=== PATIENT | male | born 1970 | race Hispanic/Latino ===

== ENCOUNTER 2019-07-23 15:28 | Emergency (ER) | payer BC, OTHER ==
[2019-07-23] MEDS ORDERED: NA CHLORIDE 0.9% 1,000 ML ONE (16:16)
[2019-07-23 16:41] LABS: Albumin 3.6 g/dL (3.4-5.0); Bilirubin Direct 0.5 mg/dL (0-0.2); Bilirubin Total 1.6 mg/dL (0.2-1.0); Potassium 4.1 mmol/L (3.5-5.1); Protein, Total 7.2 g/dL (6.4-8.2)
[2019-07-23 16:49] LABS: Absolute Lymphocytes (CBC) 1.7 K/uL (0.7-4.9); Basophils % 0.7 % (0-1.3); Hematocrit 42.1 % (39.6-49.0); Lymphocytes % 22.8 % (15.3-44.8); MPV 9.2 fL (7.6-11.3); RBC Red Blood Cell Count 4.44 M/uL (4.33-5.43)
--- NOTE | 2019-07-23 18:03 | RAD REPORT ---
EXAM DESCRIPTION: CT - Abdomen Pelvis W Contrast - 07/23/2019 5:42 pm CLINICAL HISTORY: Abdominal pain COMPARISON: none. TECHNIQUE: Computed axial tomography of the abdomen pelvis was obtained. 100 cc Isovue-300 was admin istered intravenously. Oral contrast was not requested which limits evaluation of bowel. All CT scans are performed using dose optimization technique as appropriate and may include automated exposure control or mA/KV adjustment according to patient size. FINDINGS: Fatty liver The spleen, pancreas, adrenals and right kidney unremarkable. 4.2 centimeter left renal cyst There is no evidence of diverticulitis. Normal appendix Spondylolysis L5. Small umbilical hernia Small bilateral inguinal hernias IMPRESSION: No acute abnormality is displayed.
--- NOTE | 2019-07-23 18:22 | EDPHYS ---
Physician Documentation [facility] Name: Nahid Espinoza Age: 48 yrs Sex: Male : 1970 Arrival Date: 07/23/2019 Time: 15:32 Bed 20 Private MD: ED Physician Justin Luevano HPI: 07/23 16:02 This 48 yrs old Male presents to ER via Wheelchair with complaints of Back kb Pain, Urinary Problem. 16:02 The patient has experienced a previous episode. The patient has not recently seen a kb physician. 16:02 The patient complains of pain in the left flank. The pain does not radiate. Onset: The kb symptoms/episode began/occurred 2 day(s) ago. Modifying factors: The symptoms are alleviated by nothing. the symptoms are aggravated by nothing. Associated signs and symptoms: Pertinent positives: nausea. Severity of pain: At its worst the pain was moderate in the emergency department the pain is unchanged. Pt reports left flank pain for 2 days, blood in stool for "a while, over a week," and small frequent bowel movements. States he has had this once before 3.5 years ago and his kidneys had shut down and needed to be jumpstarted. States he was getting more anxious about it at home so he decided to come in to get it checked out. . Historical: - Allergies: 16:11 PENICILLINS; tw2 - PMHx: 15:45 High Cholesterol; Hypertension; sg - PSHx: 15:45 Hernia repair; sg - Immunization history:: Adult Immunizations unknown. - Social history:: Smoking status: Patient/guardian denies using tobacco. - Ebola Screening: : Patient negative for fever greater than or equal to 101.5 degrees Fahrenheit, and additional compatible Ebola Virus Disease symptoms Patient denies exposure to infectious person Patient denies travel to an Ebola-affected area in the 21 days before illness onset No symptoms or risks identified at this time. ROS: 16:01 Constitutional: Negative for fever, chills, and weight loss, ENT: Negative for injury, kb pain, and discharge, Neck: Negative for injury, pain, and swelling, Cardiovascular: Negative for chest pain, palpitations, and edema, Respiratory: Negative for shortness of breath, cough, wheezing, and pleuritic chest pain, MS/Extremity: Negative for injury and deformity, Skin: Negative for injury, rash, and discoloration, Neuro: Negative for headache, weakness, numbness, tingling, and seizure. 16:01 Abdomen/GI: Positive for rectal bleeding. 16:01 Back: Positive for flank pain. Exam: 16:01 Constitutional: This is a well developed, well nourished patient who is awake, alert, kb and in no acute distress. Head/Face: Normocephalic, atraumatic. ENT: Nares patent. No nasal discharge, no septal abnormalities noted. Tympanic membranes are normal and external auditory canals are clear. Oropharynx with no redness, swelling, or masses, exudates, or evidence of obstruction, uvula midline. Mucous membranes moist. Neck: Trachea midline, no thyromegaly or masses palpated, and no cervical lymphadenopathy. Supple, full range of motion without nuchal rigidity, or vertebral point tenderness. No Meningismus. Chest/axilla: Normal chest wall appearance and motion. Nontender with no deformity. No lesions are appreciated. Cardiovascular: Regular rate and rhythm with a normal S1 and S2. No gallops, murmurs, or rubs. Normal PMI, no JVD. No pulse deficits. Respiratory: Lungs have equal breath sounds bilaterally, clear to auscultation and percussion. No rales, rhonchi or wheezes noted. No increased work of breathing, no retractions or nasal flaring. Abdomen/GI: Soft, non-tender, with normal bowel sounds. No distension or tympany. No guarding or rebound. No evidence of tenderness throughout. Skin: Warm, dry with normal turgor. Normal color with no rashes, no lesions, and no evidence of cellulitis. MS/ Extremity: Pulses equal, no cyanosis. Neurovascular intact. Full, normal range of motion. Neuro: Awake and alert, GCS 15, oriented to person, place, time, and situation. Cranial nerves II-XII grossly intact. Motor strength 5/5 in all extremities. Sensory grossly intact. Cerebellar exam normal. Normal gait. 16:01 Back: CVA tenderness, that is moderate, is noted on the left. Vital Signs: 15:44 BP 130 / 95; Pulse 94; Resp 17; Temp 97.7(O); Pulse Ox 98% on R/A; mh5 16:10 Weight 131.54 kg (R); Height 5 ft. 11 in. (180.34 cm); Pain 4/10; tw2 16:54 BP 117 / 74; Pulse 92; Resp 17; Pulse Ox 99% on R/A; tw2 18:07 BP 101 / 70; Pulse 92; Resp 17; Pulse Ox 100% on R/A; tw2 18:34 BP 118 / 84; Pulse 87; Resp 17; Pulse Ox 99% on R/A; tw2 16:10 Body Mass Index 40.45 (131.54 kg, 180.34 cm) tw2 MDM: 15:39 Patient medically screened. kb 16:01 Data reviewed: vital signs, nurses notes. Data interpreted: Pulse oximetry: on room air kb is 98 %. Interpretation: normal. 18:19 Counseling: I had a detailed discussion with the patient and/or guardian regarding: the kb historical points, exam findings, and any diagnostic results supporting the discharge/admit diagnosis, lab results, radiology results, the need for outpatient follow up, a family practitioner, to return to the emergency department if symptoms worsen or persist or if there are any questions or concerns that arise at home. 07/23 15:48 Order name: Basic Metabolic Panel; Complete Time: 16:45 kb 07/23 15:48 Order name: CBC with Diff; Complete Time: 16:53 kb 07/23 15:48 Order name: Hepatic Function; Complete Time: 16:45 kb 07/23 15:48 Order name: Lipase; Complete Time: 16:45 kb 07/23 16:46 Order name: CT Abd/Pelvis - IV Contrast Only; Complete Time: 18:08 kb 07/23 15:48 Order name: IV Saline Lock; Complete Time: 16:17 kb 07/23 15:48 Order name: Labs collected and sent; Complete Time: 16:17 kb Administered Medications: 16:17 Drug: NS 0.9% 1000 ml Route: IV; Rate: 1000 ml; Site: left antecubital; tw2 18:35 Follow up: Response: No adverse reaction; IV Status: Completed infusion; IV Intake: tw2 1000ml Disposition: 07/23/19 18:20 Discharged to Home. Impression: Flank Pain, Abnormal results of liver function studies. - Condition is Stable. - Discharge Instructions: Alcoholic Liver Disease, [id number], Flank Pain, [id number]. - Medication Reconciliation Form, Thank You Letter, Antibiotic Education, Prescription Opioid Use form. - Follow up: Emergency Department; When: As needed; Reason: Worsening of condition. Follow up: Private Physician; When: 2 - 3 days; Reason: Recheck today's complaints, Continuance of care, Re-evaluation by your physician. Addendum: 07/30/2019 07:25 Co-signature as Attending Physician, Justin Luevano MD I agree with the assessment and c galdamez plan of care. Signatures: Dispatcher [employer] EDEva Gresham, DYLON-C [employer]-David Wolf, RN RN Justin Walton MD MD cha Wise, Tara RN RN tw2 Corrections: (The following items were deleted from the chart) 07/23 16:17 15:45 Allergies: No Known Allergies; tw2 18:20 18:20 07/23/2019 18:20 Discharged to Home. Impression: Flank Pain. Condition is Stable. kb Forms are Medication Reconciliation Form, Thank You Letter, Antibiotic Education, Prescription Opioid Use. Follow up: Emergency Department; When: As needed; Reason: Worsening of condition. Follow up: Private Physician; When: 2 - 3 days; Reason: Recheck today's complaints, Continuance of care, Re-evaluation by your physician. kb 18:35 18:20 07/23/2019 18:20 Discharged to Home. Impression: Flank Pain; Abnormal results of tw2 liver function studies. Condition is Stable. Discharge Instructions: Flank Pain, Mioa-pa-Qxfy. Forms are Medication Reconciliation Form, Thank You Letter, Antibiotic Education, Prescription Opioid Use. Follow up: Emergency Department; When: As needed; Reason: Worsening of condition. Follow up: Private Physician; When: 2 - 3 days; Reason: Recheck today's complaints, Continuance of care, Re-evaluation by your physician. kb
--- NOTE | 2019-07-23 18:22 | ER ---
Nurse's Notes [facility] Name: Nahid Espinoza Age: 48 yrs Sex: Male : 1970 Arrival Date: 07/23/2019 Time: 15:32 Bed 20 Private MD: Diagnosis: Flank Pain;Abnormal results of liver function studies Presentation: 07/23 15:43 Presenting complaint: Patient states: Flank pain that began earlier this week, reports sg having blood in stool as well, denies N/V/D/Fever at this time. Transition of care: patient was not received from another setting of care. Onset of symptoms was July 23, 2019. Risk Assessment: Do you want to hurt yourself or someone else? Patient reports no desire to harm self or others. Initial Sepsis Screen: Does the patient meet any 2 criteria? HR > 90 bpm. Does the patient have a suspected source of infection? Yes: Dysuria/Frequency/Urgency/UTI. Care prior to arrival: None. 15:43 Method Of Arrival: Wheelchair 15:43 Acuity: KATIE 3 sg Triage Assessment: 15:47 General: Appears uncomfortable, obese, well groomed, Behavior is calm, cooperative, tw2 appropriate for age. Musculoskeletal: Range of motion: intact in all extremities. Historical: - Allergies: 16:11 PENICILLINS; tw2 - PMHx: 15:45 High Cholesterol; Hypertension; sg - PSHx: 15:45 Hernia repair; sg - Immunization history:: Adult Immunizations unknown. - Social history:: Smoking status: Patient/guardian denies using tobacco. - Ebola Screening: : Patient negative for fever greater than or equal to 101.5 degrees Fahrenheit, and additional compatible Ebola Virus Disease symptoms Patient denies exposure to infectious person Patient denies travel to an Ebola-affected area in the 21 days before illness onset No symptoms or risks identified at this time. Screenin:46 Abuse screen: Denies threats or abuse. Nutritional screening: No deficits noted. tw2 Tuberculosis screening: No symptoms or risk factors identified. Fall Risk None identified. Assessment: 15:45 Pain: Complains of pain in left low back and right low back. Neuro: Level of tw2 Consciousness is awake, alert, obeys commands, Oriented to person, place, time, situation. 15:45 Reassessment: provider at bedside at this time. tw2 15:45 General: Appears in no apparent distress. obese, well groomed, Behavior is calm, tw2 cooperative, appropriate for age. Cardiovascular: Heart tones S1 S2 Patient's skin is warm and dry. Respiratory: Airway is patent Respiratory effort is even, unlabored, Respiratory pattern is regular, symmetrical, Breath sounds are clear bilaterally. GI: Abdomen is round non-distended, obese, Bowel sounds present X 4 quads. : No signs and/or symptoms were reported regarding the genitourinary system. EENT: No signs and/or symptoms were reported regarding the EENT system. Derm: No signs and/or symptoms reported regarding the dermatologic system. Musculoskeletal: Range of motion: intact in all extremities. 16:54 Reassessment: Patient appears in no apparent distress at this time. No changes from tw2 previously documented assessment. Patient and/or family updated on plan of care and expected duration. Pain level reassessed. Patient is alert, oriented x 3, equal unlabored respirations, skin warm/dry/pink. 18:34 Reassessment: Patient appears in no apparent distress at this time. No changes from tw2 previously documented assessment. Patient and/or family updated on plan of care and expected duration. Pain level reassessed. Patient is alert, oriented x 3, equal unlabored respirations, skin warm/dry/pink. Vital Signs: 15:44 BP 130 / 95; Pulse 94; Resp 17; Temp 97.7(O); Pulse Ox 98% on R/A; mh5 16:10 Weight 131.54 kg (R); Height 5 ft. 11 in. (180.34 cm); Pain 4/10; tw2 16:54 BP 117 / 74; Pulse 92; Resp 17; Pulse Ox 99% on R/A; tw2 18:07 BP 101 / 70; Pulse 92; Resp 17; Pulse Ox 100% on R/A; tw2 18:34 BP 118 / 84; Pulse 87; Resp 17; Pulse Ox 99% on R/A; tw2 16:10 Body Mass Index 40.45 (131.54 kg, 180.34 cm) tw2 ED Course: 15:32 Patient arrived in ED. mr 15:39 Eva Matthews FNP-C is [facility]. kb 15:39 Justin Luevano MD is Attending Physician. kb 15:40 Bed in low position. Call light in reach. Pulse ox on. NIBP on. tw2 15:43 Chloe Rizvi, RN is Primary Nurse. tw2 15:44 Triage completed. 15:45 Arm band placed on. tw2 16:12 Served as a agile project manager during rectal exam. Initial lab(s) drawn, by me, sent to lab. 5 Inserted saline lock: 22 gauge in left antecubital area, using aseptic technique. 16:13 Side rails up X 1. 5 17:43 CT Abd/Pelvis - IV Contrast Only In Process Unspecified. EDMS 18:35 IV discontinued, intact, bleeding controlled, No redness/swelling at site. Pressure tw2 dressing applied. Administered Medications: 16:17 Drug: NS 0.9% 1000 ml Route: IV; Rate: 1000 ml; Site: left antecubital; tw2 18:35 Follow up: Response: No adverse reaction; IV Status: Completed infusion; IV Intake: tw2 1000ml Intake: 18:35 IV: 1000ml; Total: 1000ml. tw2 Outcome: 18:20 Discharge ordered by MD. kb 18:34 Discharged to home ambulatory, with significant other. tw2 18:34 Condition: stable 18:34 Discharge instructions given to patient, significant other, Instructed on discharge instructions, follow up and referral plans. Demonstrated understanding of instructions, follow-up care. 18:35 Patient left the ED. tw2 Signatures: Dispatcher [employer] EDMS Eva Matthews, TAIL RIPPERDeannaC TAIL RIPPER-David Wolf RN RN Jayashree Manzo mr Chloe Rizvi, GEMINI RN [facility] Alise White [facility] Corrections: (The following items were deleted from the chart) 15:50 15:44 BP 130 / 95; Pulse 94bpm; Resp 17bpm; Pulse Ox 98% RA; tw2 [facility] 16:17 15:45 Allergies: No Known Allergies; tw2 19:18 15:45 Reassessment: provider at bedside at this time tw2 2
[2019-07-23 18:41] VITALS: TEMP 97.7
[2019-07-23 18:46] VITALS: BP 118/84; O2SAT 99
== END 2019-07-23 18:35 | disposition home or self-care (01) ==
LOC: ER 15:28
DX: R94.5 Abnormal results of liver function studies (principal); I10 Essential (primary) hypertension; Z88.0 Allergy status to penicillin
CPT/HCPCS: 96361; 85025; 80048; 36415; 80076; 83690; 74177; 96360; 99284; Q9967; J7030

== ENCOUNTER 2019-10-12 06:08 | Day surgery (SDC) | payer BC ==
--- OUTSIDE RECORDS SUMMARY | 2019-10-12 06:15 | XMS REPORT ---
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 disorder without prior episode Assessment Insomnia, unspecified type G47.00 Active Problem Generalized anxiety disorder F41.1 Active Problem Mixed hyperlipidemia E78.2 Active Problem Alcohol abuse F10.10 Active Problem Body mass index (BMI) 40.0-44.9, Z68.41 Active adult Problem Insomnia, unspecified type G47.00 Active Problem Panic disorder [episodic paroxysmal F41.0 Active anxiety] Problem Morbid (severe) obesity due to E66.01 Active excess calories Medications Medication Code Code Instructions Start End Status Dosage System Date Date Zolpidem [facility] 51670837726 10 MG Orally Active 1 tablet Tartrate Once a day PRN at bedtime as needed Results No Known Results Summary Purpose eClinicalWorks Submission
--- OUTSIDE RECORDS SUMMARY | 2019-10-12 06:15 | XMS REPORT ---
:1970 Author Organization eClinicalWorks Care Team Providers Name Role Phone Luca Leonardo Provider Role Unavailable Allergies, Adverse Reactions, Alerts Substance Reaction Event Type penicillin Info Not Available Drug Allergy Problems Problem Type Condition Code Onset Dates Condition Status Problem HTN, goal below 140/90 I10 Active Problem Current moderate episode of major F32.1 Active depressive disorder without prior episode Problem Generalized anxiety disorder F41.1 Active Assessment Body mass index (BMI) 40.0-44.9, Z68.41 Active adult Problem Mixed hyperlipidemia E78.2 Active Problem Alcohol abuse F10.10 Active Problem Body mass index (BMI) 40.0-44.9, Z68.41 Active adult Problem Insomnia, unspecified type G47.00 Active Problem Panic disorder [episodic paroxysmal F41.0 Active anxiety] Problem Morbid (severe) obesity due to E66.01 Active excess calories Assessment Alcohol abuse counseling and Z71.41 Active surveillance Assessment History of recent change in Z78.9 Active lifestyle Assessment Morbid (severe) obesity due to E66.01 Active excess calories Assessment Alcohol abuse F10.10 Active Assessment Insomnia, unspecified type G47.00 Active Assessment Generalized anxiety disorder F41.1 Active Assessment Mixed hyperlipidemia E78.2 Active Assessment Panic disorder [episodic paroxysmal F41.0 Active anxiety] Assessment HTN, goal below 140/90 I10 Active Assessment Current moderate episode of major F32.1 Active depressive disorder without prior episode Medications Medication Code Code Instructions Start End Status Dosage System Date Date Zoloft ND 95589473315 50 MG Orally Inactive Take 1/2 Once a day tab QD x 1 week then take 1 tab QD Fenofibrate ND 39970082402 54 MG Orally Active 1 tablet Once a day with food Lisinopril ND 45945269118 40 MG Orally Active 1 tablet Once a day Zolpidem ND 04462636907 10 MG Orally Active 1 tablet Tartrate PRN at bedtime as needed Atorvastatin ND 87891603655 10 MG Orally Active 1 tablet Calcium Once a day Alprazolam ND 33371457678 0.5 MG Orally Active 1 tablet PRN Carvedilol [facility] 67711968669 25 MG Orally Active 1 tablet Twice a day Aspir-Low [facility] 71110735815 81 MG Orally Active 1 tablet Once a day Mens [facility] 95039344198 - Orally Active as Multivitamin directed Celexa [facility] 39809381965 20 MG Orally Jul 09, Active 0.5 tablet Once a day 2018 daily x 1 week then 1 tablet daily Results No Known Results Summary Purpose eClinicalWorks Submission
--- OUTSIDE RECORDS SUMMARY | 2019-10-12 06:15 | XMS REPORT ---
:1970 Author Organization e[employer]Works Care Team Providers Name Role Phone Leonardo Segovia Provider Role Unavailable Allergies, Adverse Reactions, Alerts Substance Reaction Event Type penicillin Info Not Available Drug Allergy Problems Problem Type Condition Code Onset Dates Condition Status Assessment Obstructive sleep apnea (adult) G47.33 Active (pediatric) Assessment Dependence on other enabling Z99.89 Active machines and devices Assessment Hyperkalemia E87.5 Active Assessment Body mass index (BMI) 40.0-44.9, Z68.41 Active adult Assessment Morbid (severe) obesity due to E66.01 Active excess calories Assessment Family history of colon cancer in Z80.0 Active father Problem Generalized anxiety disorder F41.1 Active Assessment Polyp of colon, unspecified part of K63.5 Active colon, unspecified type Problem Alcohol abuse F10.10 Active Problem Morbid (severe) obesity due to E66.01 Active excess calories Problem Body mass index (BMI) 40.0-44.9, Z68.41 Active adult Problem Dependence on other enabling Z99.89 Active machines and devices Problem Insomnia, unspecified type G47.00 Active Assessment Prediabetes R73.03 Active Assessment Elevated LFTs R94.5 Active Problem Obstructive sleep apnea (adult) G47.33 Active (pediatric) Assessment Anemia, unspecified type D64.9 Active Problem Mixed hyperlipidemia E78.2 Active Problem Panic disorder [episodic paroxysmal F41.0 Active anxiety] Problem HTN, goal below 140/90 I10 Active Problem Current moderate episode of major F32.1 Active depressive disorder without prior episode Assessment Mixed hyperlipidemia E78.2 Active Assessment HTN, goal below 140/90 I10 Active Assessment Alcohol abuse F10.10 Active Assessment History of recent change in Z78.9 Active lifestyle Assessment Panic disorder [episodic paroxysmal F41.0 Active anxiety] Assessment Current moderate episode of major F32.1 Active depressive disorder without prior episode Assessment Insomnia, unspecified type G47.00 Active Assessment Generalized anxiety disorder F41.1 Active Medications Medication Code Code Instructions Start End Status Dosage System Date Date [facility] [id number] - Orally Active as directed Multivitamin Carvedilol [facility] 31056011945 25 MG Orally Active 1 tablet Twice a day Atorvastatin [facility] 28850710359 10 MG Orally Active 1 tablet Calcium Once a day Alprazolam [facility] 36604859417 0.5 MG Orally Active 1 tablet PRN Zolpidem [facility] 52218541028 10 MG Orally Active 1 tablet at Tartrate PRN bedtime as needed Lisinopril [facility] 04364154598 40 MG Orally Active 1 tablet Once a day Aspir-Low [facility] 91771422164 81 MG Orally Active 1 tablet Once a day Fenofibrate [facility] 26353659056 54 MG Orally Active 1 tablet Once a day with food Celexa [facility] 36209113900 40 MG Orally Active 1 tablet Once a day Results No Known Results Summary Purpose eClinicalWorks Submission
--- OUTSIDE RECORDS SUMMARY | 2019-10-12 06:15 | XMS REPORT ---
:1970 Author Organization eClinicalWorks Care Team Providers Name Role Phone Luca [facility] Provider Role Unavailable Allergies No Known Allergies Problems Problem Type Condition Code Onset Dates Condition Status Problem HTN, goal below 140/90 I10 Active Problem Current moderate episode of major F32.1 Active depressive disorder without prior episode Assessment HTN, goal below 140/90 I10 Active Assessment Mixed hyperlipidemia E78.2 Active Problem Generalized anxiety disorder F41.1 Active Problem Mixed hyperlipidemia E78.2 Active Problem Alcohol abuse F10.10 Active Problem Body mass index (BMI) 40.0-44.9, Z68.41 Active adult Problem Insomnia, unspecified type G47.00 Active Problem Panic disorder [episodic paroxysmal F41.0 Active anxiety] Problem Morbid (severe) obesity due to E66.01 Active excess calories Medications Medication Code Code Instructions Start End Status Dosage System Date Date Atorvastatin [facility] 11983393836 10 MG Orally Active 1 tablet Calcium Once a day Fenofibrate [facility] 55720880280 54 MG Orally Active 1 tablet Once a day with food Lisinopril [facility] 60526360345 40 MG Orally Active 1 tablet Once a day Results No Known Results Summary Purpose eClinicalWorks Submission
--- OUTSIDE RECORDS SUMMARY | 2019-10-12 06:15 | XMS REPORT ---
:1970 Author Organization eClinicalWorks Care Team Providers Name Role Phone Luca Leonardo Provider Role Unavailable Allergies, Adverse Reactions, Alerts Substance Reaction Event Type penicillin Info Not Available Drug Allergy Problems Problem Type Condition Code Onset Dates Condition Status Assessment Family history of colon cancer in Z80.0 Active father Assessment Current moderate episode of major F32.1 Active depressive disorder without prior episode Assessment Need for Tdap vaccination Z23 Active Assessment Encounter for wellness examination Z00.00 Active in adult Assessment Polyp of colon, unspecified part of K63.5 Active colon, unspecified type Problem HTN, goal below 140/90 I10 Active Problem Current moderate episode of major F32.1 Active depressive disorder without prior episode Problem Generalized anxiety disorder F41.1 Active Problem Mixed hyperlipidemia E78.2 Active Assessment Morbid (severe) obesity due to E66.01 Active excess calories Assessment Body mass index (BMI) 40.0-44.9, Z68.41 Active adult Problem Alcohol abuse F10.10 Active Assessment Screen for colon cancer Z12.11 Active Problem Body mass index (BMI) 40.0-44.9, Z68.41 Active adult Problem Insomnia, unspecified type G47.00 Active Problem Panic disorder [episodic paroxysmal F41.0 Active anxiety] Problem Morbid (severe) obesity due to E66.01 Active excess calories Assessment History of recent change in Z78.9 Active lifestyle Assessment Mixed hyperlipidemia E78.2 Active Assessment Alcohol abuse F10.10 Active Assessment Alcohol abuse counseling and Z71.41 Active surveillance Assessment Generalized anxiety disorder F41.1 Active Assessment Panic disorder [episodic paroxysmal F41.0 Active anxiety] Assessment HTN, goal below 140/90 I10 Active Assessment Insomnia, unspecified type G47.00 Active Medications Medication Code Code Instructions Start End Status Dosage System Date Date Aspir-Low [facility] 01351620246 81 MG Orally Active 1 tablet Once a day Carvedilol [facility] 72743234051 25 MG Orally Active 1 tablet Twice a day Celexa [facility] 34635860878 20 MG Orally Active 1 tablet Once a day Mens [facility] 88937207497 - Orally Active as directed Multivitamin Alprazolam [facility] 11606059604 0.5 MG Orally Active 1 tablet PRN Lisinopril [facility] 22398541857 40 MG Orally Active 1 tablet Once a day Zolpidem [facility] 02888733379 10 MG Orally Active 1 tablet at Tartrate PRN bedtime as needed Atorvastatin [facility] 91577696151 10 MG Orally Active 1 tablet Calcium Once a day Fenofibrate [facility] 59048988901 54 MG Orally Active 1 tablet Once a day with food Results No Known Results Immunizations Vaccine Administration Date TDAP > 7 Years-Adacel Aug 06, 2019 Summary Purpose eClinicalWorks Submission
--- OUTSIDE RECORDS SUMMARY | 2019-10-12 06:15 | XMS REPORT ---
[...] End Status Dosage System Date Date Aspir-Low ND 74515388002 81 MG Orally Active 1 tablet Once a day Atorvastatin ND 47114270054 10 MG Orally Active 1 tablet Calcium Once a day Zoloft ND 24141859933 50 MG Orally Jul 06, Active Take 1/2 Once a day 2019 tab QD x 1 week then take 1 tab QD Mens ND 96306328924 - Orally Active as directed Multivitamin Zolpidem ND 64976232950 10 MG Orally Active 1 tablet at Tartrate PRN bedtime as needed Fenofibrate ND 00142847429 54 MG Orally Active 1 tablet Once a day with food Alprazolam [facility] 42654279335 0.5 MG Orally Active 1 tablet PRN Lisinopril [facility] 10620339974 40 MG Orally Active 1 tablet Once a day Carvedilol [facility] 55661706197 25 MG Orally Active 1 tablet Twice a day Results No Known Results Summary Purpose eClinicalWorks Submission
--- OUTSIDE RECORDS SUMMARY | 2019-10-12 06:15 | XMS REPORT ---
:1970 Author Organization eClinicalWorks Care Team Providers Name Role Phone Luca Leonardo Provider Role Unavailable Allergies No Known Allergies Problems Problem Type Condition Code Onset Dates Condition Status Problem HTN, goal below 140/90 I10 Active Problem Current moderate episode of major F32.1 Active depressive disorder without prior episode Assessment Current moderate episode of major F32.1 [...] Medications Medication Code Code Instructions Start End Date Status Dosage System Date Celexa [facility] 25537190555 20 MG Orally Jul 09, Active 0.5 tablet Once a day 2018 daily x 1 week then 1 tablet daily Zoloft [facility] 96080955994 50 MG Orally Jul 06, Jul 09, Inactive Take 1/2 Once a day 2018 2018 tab QD x 1 week then take 1 tab QD Results No Known Results Summary Purpose eClinicalWorks Submission
--- OUTSIDE RECORDS SUMMARY | 2019-10-12 06:15 | XMS REPORT ---
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 Active machines and devices Problem Insomnia, unspecified type G47.00 Active Problem Obstructive sleep apnea (adult) G47.33 Active (pediatric) Problem Mixed hyperlipidemia E78.2 Active Problem Panic disorder [episodic paroxysmal F41.0 Active anxiety] Problem HTN, goal below 140/90 I10 Active Problem Current moderate episode of major F32.1 Active depressive disorder without prior episode Medications Medication Code Code Instructions Start End Status Dosage System Date Date Zolpidem [facility] 23401937997 10 MG Orally Inactive 1 tablet Tartrate PRN at bedtime as needed Trazodone HCl ND 90116649195 100 MG Orally Sep 06, Active 1 tablet Once a day 2019 at bedtime Results No Known Results Summary Purpose eClinicalWorks Submission
[2019-10-12] MEDS ORDERED: Ringers Lactate 1,000 ML IV ONE (06:53)
[2019-10-12] MEDS ORDERED: LIDOCAINE 1% MPF 5 ML VIAL ONE (07:37)
[2019-10-12] MEDS ORDERED: propofoL 200 MG/20 ML VIAL IV ONE (07:37)
--- NOTE | 2019-10-12 08:03 | ENDO RPT ---
[address], [address] COLONOSCOPY PROCEDURE REPORT EXAM DATE: 10/12/2019 PATIENT NAME: Nahid Espinoza MR #: [id number] BIRTHDATE: 1970 ATTENDING: Sonido White MD STATUS: outpatient MARKETING PLANNER: Krishna Cleary CST and Whit Ferrer RN INDICATIONS: The patient is a 49 yr old Male here for a colonoscopy due to history of polyps and hx GI bleed, strong family hx colon cancer PROCEDURE PERFORMED: Colonoscopy MEDICATIONS: Per Anesthesia. ESTIMATED BLOOD LOSS: None CONSENT: The patient understands the risks and benefits of the procedure and understands that these risks include, but are not limited to: sedation, allergic reaction, infection, perforation and/or bleeding. Alternative means of evaluation and treatment include, among others: physical exam, x-rays, and/or surgical intervention. The patient elects to proceed with this endoscopic procedure. DESCRIPTION OF PROCEDURE: During intra-op preparation period all mechanical medical equipment was checked for proper function. Hand hygiene and appropriate measures for infection prevention was taken. Procedure, possible complications, alternatives including, but not limited to possibility of bleeding, perforation, tear, infection, sepsis, need for surgery, need for blood transfusion, were explained to the patient. After the risks, benefits and alternatives of the procedure were thoroughly explained, Informed consent was verified, confirmed and timeout was successfully executed by the treatment team. The patient was placed in the left lateral position. A digital rectal exam was performed and revealed external hemorrhoids. After appropriate level of anesthesia, the scope was passed. The EC-[id number] ([id number]) endoscope was introduced through the anus and advanced to the cecum, which was identified by transillumination from the light source, the appendix, and the ileocecal valve. The quality of the prep was good. The instrument was then slowly withdrawn as the colon was fully examined. Scope withdrawal time was . COLON FINDINGS: Diverticula was found in the descending colon. Retroflexed views revealed no abnormalities and Retroflexed views revealed medium hemorrhoids. The scope was then completely withdrawn from the patient and the procedure terminated. ADVERSE EVENTS: There were no complications. IMPRESSIONS: 1. Diverticula in the descending colon 2. External hemorrhoids 3. Internal hemorrhoids RECOMMENDATIONS: 1. follow-up: office 1 week(s) 2. hemorrhoidal hygiene 3. no seeds in diet RECALL: Return in 3 year(s) for Colonoscopy. Sonido White MD eSigned: Sonido White MD 10/12/2019 8:02 AM cc: Leonardo Segovia MD CPT CODES: ICD9 CODES: PATIENT NAME: Nahid Espinoza MR#: [id number]
[2019-10-12 08:42] VITALS: TEMP 96.5
[2019-10-12 08:43] VITALS: BP 100/62; O2SAT 100
== END 2019-10-12 08:35 | disposition home or self-care (01) ==
LOC: OR 06:08
PROVIDERS: ATTEND Surgery
PROC: 0DJD8ZZ Inspection of Lower Intestinal Tract, Via Natural or Artificial Opening Endoscopic (ICD-10-PCS; principal; 2019-10-12 07:30)
DX: K57.30 Diverticulosis of large intestine without perforation or abscess without bleeding (principal); K64.8 Other hemorrhoids; K64.4 Residual hemorrhoidal skin tags; I10 Essential (primary) hypertension; E78.00 Pure hypercholesterolemia, unspecified; F41.9 Anxiety disorder, unspecified; F32.9 Major depressive disorder, single episode, unspecified; Z86.010 Personal history of colon polyps; Z88.0 Allergy status to penicillin; Z80.0 Family history of malignant neoplasm of digestive organs; Z80.3 Family history of malignant neoplasm of breast
CPT/HCPCS: 45378; J2704; J7120

== ENCOUNTER 2019-10-30 14:08 | Emergency (ER) | payer BC ==
--- OUTSIDE RECORDS SUMMARY | 2019-10-30 14:10 | XMS REPORT ---
:1970 Author Organization eClinicalWorks Care Team Providers Name Role Phone Luca Leonardo Provider Role Unavailable Allergies, Adverse Reactions, Alerts Substance Reaction Event Type penicillin Info Not Available Drug Allergy Problems Problem Type Condition Code Onset Dates Condition Statu s Problem HTN, goal below 140/90 I10 Activ e Problem Current moderate episode of major F32.1 Active depressive disorder without prior episode Problem Generalized anxiety disorder F41.1 Active Assessment Body mass index (BMI) 40.0-44.9, Z68.41 Active adult Problem Mixed hyperlipidemia E78.2 Active Problem Alcohol abuse F10.10 Active Problem Body mass index (BMI) 40.0-44.9, Z68.41 Active adult Problem Insomnia, unspecified type G47.00 A ctive Problem Panic disorder [episodic paroxysmal F41.0 Active anxiety] Problem Morbid (severe) obesity due to E66.01 Active excess calories Assessment Alcohol abuse counseling and Z71.41 Active surveillance Assessment History of recent change in Z78.9 Active lifestyle Assessment Morbid (severe) obesity due to E66.01 Active excess calories Assessment Alcohol abuse F10.10 Active Assessment Insomnia, unspecified type G47.00 A ctive Assessment Generalized anxiety disorder F41.1 Active Assessment Mixed hyperlipidemia E78.2 Active Assessment Panic disorder [episodic paroxysmal F41.0 Active anxiety] Assessment HTN, goal below 140/90 I10 Activ e Assessment Current moderate episode of major F32.1 Active depressive disorder without prior episode Medications Medication Code Code Instructions Start End Status Dosage System Date Date Aspir-Low [facility] 14682087140 81 MG Orally Active 1 tab let Once a day Atorvastatin [facility] 32807633030 10 MG Orally Active 1 tablet Calcium Once a day Zoloft ND 51697150887 50 MG Orally Jul 06, Active Take 1/ 2 Once a day 2019 tab QD x 1 week then take 1 tab QD Mens [facility] 11233115040 - Orally Active as directed Multivitamin Zolpidem ND 86544609271 10 MG Orally Active 1 tabl et at Tartrate PRN bedtime as needed Fenofibrate [facility] 47994070307 54 MG Orally Active 1 t ablet Once a day with food Alprazolam [facility] 79701357309 0.5 MG Orally Active 1 t ablet PRN Lisinopril [facility] 16726956618 40 MG Orally Active 1 ta blet Once a day Carvedilol [facility] 55440127301 25 MG Orally Active 1 ta blet Twice a day Results No Known Results Summary Purpose eClinicalWorks Submission
--- OUTSIDE RECORDS SUMMARY | 2019-10-30 14:11 | XMS REPORT ---
:1970 Author Organization eClinicalWorks Care Team Providers Name Role Phone Luca Leonardo Provider Role Unavailable Allergies No Known Allergies Problems Problem Type Condition Code Onset Dates Condition Statu s Problem HTN, goal below 140/90 I10 Activ e Problem Current moderate episode of major F32.1 Active depressive disorder without prior episode Assessment HTN, goal below 140/90 I10 Activ e Assessment Mixed hyperlipidemia E78.2 Active Problem Generalized [...] End Status Dosage System Date Date Atorvastatin [facility] 60554023246 10 MG Orally Active 1 tablet Calcium Once a day Fenofibrate ND 64152852132 54 MG Orally Active 1 t ablet Once a day with food Lisinopril [facility] 94933900216 40 MG Orally Active 1 ta blet Once a day Results No Known Results Summary Purpose eClinicalWorks Submission
--- OUTSIDE RECORDS SUMMARY | 2019-10-30 14:11 | XMS REPORT ---
[...] End Date Status Dosage System Date Celexa [facility] 05826547016 20 MG Orally Jul 09, Active 0.5 tab let Once a day 2018 daily x 1 week then 1 tablet daily Zoloft [facility] 21286930814 50 MG Orally Jul 06, Jul 09, Inactive Take 1 /2 Once a day 2018 2018 tab QD x 1 week then take 1 tab QD Results No Known Results Summary Purpose eClinicalWorks Submission
--- OUTSIDE RECORDS SUMMARY | 2019-10-30 14:11 | XMS REPORT ---
[...] End Status Dosage System Date Date Zoloft [facility] 13942614237 50 MG Orally Inactive Take 1 /2 Once a day tab QD x 1 week then take 1 tab QD Fenofibrate ND 82359701721 54 MG Orally Active 1 t ablet Once a day with food Lisinopril ND 87842310310 40 MG Orally Active 1 ta blet Once a day Zolpidem ND 70916642765 10 MG Orally Active 1 tabl et Tartrate PRN at bedtime as needed Atorvastatin ND 72460599888 10 MG Orally Active 1 tablet Calcium Once a day Alprazolam [facility] 88016102128 0.5 MG Orally Active 1 t ablet PRN Carvedilol [facility] 11159022918 25 MG Orally Active 1 ta blet Twice a day Aspir-Low [facility] 51921994460 81 MG Orally Active 1 tab let Once a day Mens [facility] 01693345593 - Orally Active as Multivitamin directed Celexa [facility] 55688866742 20 MG Orally Jul 09, Active 0.5 tab let Once a day 2019 daily x 1 week then 1 tablet daily Results No Known Results Summary Purpose eClinicalWorks Submission
--- OUTSIDE RECORDS SUMMARY | 2019-10-30 14:12 | XMS REPORT ---
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 machines and devices Problem Insomnia, unspecified type G47.00 A ctive Problem Obstructive sleep apnea (adult) G47.33 Active (pediatric) Problem Mixed hyperlipidemia E78.2 Active Problem Panic disorder [episodic paroxysmal F41.0 Active anxiety] Problem HTN, goal below 140/90 I10 Activ e Problem Current moderate episode of major F32.1 Active depressive disorder without prior episode Medications Medication Code Code Instructions Start End Status Dosage System Date Date Zolpidem [facility] 81655742997 10 MG Orally Inactive 1 tab let Tartrate PRN at bedtime as needed Trazodone HCl ND 42552417993 100 MG Orally Sep 06, Active 1 tablet Once a day 2019 at bedtime Results No Known Results Summary Purpose eClinicalWorks Submission
--- OUTSIDE RECORDS SUMMARY | 2019-10-30 14:12 | XMS REPORT ---
:1970 Author Organization eClinicalWorks Care Team Providers Name Role Phone Leonardo Segovia Provider Role Unavailable Allergies, Adverse Reactions, Alerts Substance Reaction Event Type penicillin Info Not Available Drug Allergy Problems Problem Type Condition Code Onset Dates Condition Statu s Assessment Obstructive sleep apnea (adult) G47.33 Active [...] Problem Insomnia, unspecified type G47.00 A ctive Assessment Prediabetes R73.03 Active Assessment Elevated LFTs R94.5 Active Problem Obstructive sleep apnea (adult) G47.33 Active (pediatric) Assessment Anemia, unspecified type D64.9 Act tammy Problem Mixed hyperlipidemia E78.2 Active Problem Panic disorder [episodic paroxysmal F41.0 Active anxiety] Problem HTN, goal below 140/90 I10 Activ e Problem Current moderate episode of major F32.1 Active depressive disorder without prior episode Assessment Mixed hyperlipidemia E78.2 Active Assessment HTN, goal below 140/90 I10 Activ e Assessment Alcohol abuse F10.10 Active Assessment History of recent change in Z78.9 Active lifestyle Assessment Panic disorder [episodic paroxysmal F41.0 Active anxiety] Assessment Current moderate episode of major F32.1 Active depressive disorder without prior episode Assessment Insomnia, unspecified type G47.00 A ctive Assessment Generalized anxiety disorder F41.1 Active Medications Medication Code Code Instructions Start End Status Dosage System Date Date Mens [facility] 75157758976 - Orally Active as directed Multivitamin Carvedilol [facility] 69064426652 25 MG Orally Active 1 ta blet Twice a day Atorvastatin [facility] 18851879995 10 MG Orally Active 1 tablet Calcium Once a day Alprazolam [facility] 22903775949 0.5 MG Orally Active 1 t ablet PRN Zolpidem [facility] 41568817387 10 MG Orally Active 1 tabl et at Tartrate PRN bedtime as needed Lisinopril [facility] 18362503941 40 MG Orally Active 1 ta blet Once a day Aspir-Low [facility] 62684740319 81 MG Orally Active 1 tab let Once a day Fenofibrate [facility] 98139070635 54 MG Orally Active 1 t ablet Once a day with food Celexa [facility] 28131718328 40 MG Orally Active 1 table t Once a day Results No Known Results Summary Purpose eClinicalWorks Submission
--- OUTSIDE RECORDS SUMMARY | 2019-10-30 14:12 | XMS REPORT ---
:1970 Author Organization eClinicalWorks Care Team Providers Name Role Phone Luca [facility] Provider Role Unavailable Allergies No Known Allergies [...] End Status Dosage System Date Date Zolpidem [facility] 88257705089 10 MG Orally Active 1 tabl et Tartrate Once a day PRN at bedti me as needed Results No Known Results Summary Purpose eClinicalWorks Submission
--- OUTSIDE RECORDS SUMMARY | 2019-10-30 14:12 | XMS REPORT ---
:1970 Author Organization eClinicalWorks Care Team Providers Name Role Phone Luca Leonardo Provider Role Unavailable Allergies, Adverse Reactions, Alerts Substance Reaction Event Type penicillin Info Not Available Drug Allergy Problems Problem Type Condition Code Onset Dates Condition Statu s Assessment Family history of colon cancer in Z80.0 Active father Assessment Current moderate episode of major F32.1 Active depressive disorder without prior episode Assessment Need for Tdap vaccination Z23 Ac tive Assessment Encounter for wellness examination Z00.00 Active in adult Assessment Polyp of colon, unspecified part of K63.5 Active colon, unspecified type Problem HTN, goal below 140/90 I10 Activ e Problem Current moderate episode of major F32.1 Active depressive disorder without prior episode Problem Generalized anxiety disorder F41.1 Active Problem Mixed hyperlipidemia E78.2 Active Assessment Morbid (severe) obesity due to E66.01 Active excess calories Assessment Body mass index (BMI) 40.0-44.9, Z68.41 Active adult Problem Alcohol abuse F10.10 Active Assessment Screen for colon cancer Z12.11 Acti ve Problem Body mass index (BMI) 40.0-44.9, Z68.41 [...] goal below 140/90 I10 Activ e Assessment Insomnia, unspecified type G47.00 A ctive Medications Medication Code Code Instructions Start End Status Dosage System Date Date Aspir-Low [facility] 55799002181 81 MG Orally Active 1 tab let Once a day Carvedilol [facility] 84412618493 25 MG Orally Active 1 ta blet Twice a day Celexa [facility] 11862777925 20 MG Orally Active 1 table t Once a day Mens [facility] 62216486486 - Orally Active as directed Multivitamin Alprazolam [facility] 07255027593 0.5 MG Orally Active 1 t ablet PRN Lisinopril [facility] 39911413646 40 MG Orally Active 1 ta blet Once a day Zolpidem [facility] 67973476817 10 MG Orally Active 1 tabl et at Tartrate PRN bedtime as needed Atorvastatin [facility] 35403377793 10 MG Orally Active 1 tablet Calcium Once a day Fenofibrate [facility] 34728647307 54 MG Orally Active 1 t ablet Once a day with food Results No Known Results Immunizations Vaccine Administration Date TDAP > 7 Years-Adacel Aug 06, 2019 Summary Purpose eClinicalWorks Submission
[2019-10-30 15:15] LABS: Protime INR 1.15
--- NOTE | 2019-10-30 15:37 | RAD REPORT ---
EXAM DESCRIPTION: CT - Stone Protocol - 10/30/2019 3:07 pm CLINICAL HISTORY: Abdominal pain. COMPARISON: 06/2019 TECHNIQUE: Computed axial tomography of the abdomen pelvis was obtained without oral or IV contrast. Lack of IV and oral contrast limits evaluation of solid organs, bowel, and vessels. Coronal reformat dania images were obtained and reviewed. All CT scans are performed using dose optimization technique as appropriate and may include automated exposure control or mA/KV adjustment according to patient size. FINDINGS: A renal calculus is not seen. An ureteral calculus is not noted. A bladder calculus is not present. The gallbladder is distended. Probable gallstone Fatty liver The spleen, pancreas, adrenals and right kidney unremarkable. 4.2 centimeter left renal cyst There is no evidence of diverticulitis. Normal appendix Spondylolysis L5. Small umbilical hernia Small bilateral inguinal hernias IMPRESSION: Negative for a genitourinary calculus The gallbladder is distended. Probable gallstone
[2019-10-30 15:38] LABS: Absolute Lymphocytes (CBC) 2.5 K/uL (0.7-4.9); Hematocrit 34.4 % (39.6-49.0); Lymphocytes % 57.5 % (15.3-44.8); MPV 10.1 fL (7.6-11.3)
[2019-10-30 15:39] LABS: ALT/SGPT 131 U/L (12-78); Albumin 2.5 g/dL (3.4-5.0); Alkaline Phosphatase 617 U/L (45-117); BUN Blood Urea Nitrogen 20 mg/dL (7-18); Bicarbonate 25 mmol/L (21-32); Bilirubin Direct 2.7 mg/dL (0-0.2); Bilirubin Total 3.2 mg/dL (0.2-1.0); Glucose Level 122 mg/dL (74-106); Lipase 163 U/L (73-393); NT PRO-BNP 77 pg/mL (<125); Protein, Total 6.3 g/dL (6.4-8.2); Sodium Level 134 mmol/L (136-145); Troponin (Emerg Dept Use Only) < 0.02 ng/mL (0.0-0.045)
[2019-10-30 15:40] LABS: AST/SGOT 245 U/L (15-37); Magnesium 1.9 mg/dL (1.8-2.4); Potassium 4.7 mmol/L (3.5-5.1)
--- NOTE | 2019-10-30 15:59 | RAD REPORT ---
EXAM DESCRIPTION: USExtrem Venous W Compress Bil10/30/2019 3:32 pm CLINICAL HISTORY: Leg pain COMPARISON: none FINDINGS: The common femoral, superficial femoral, popliteal and posterior tibial veins bilaterally are compressible and demonstrate augmentation. Doppler demonstrates good flow. IMPRESSION: No evidence of deep venous thrombosis involving either lower extremity.
--- NOTE | 2019-10-30 16:00 | RAD REPORT ---
EXAM DESCRIPTION: Odin Single View10/30/2019 3:50 pm CLINICAL HISTORY: cough COMPARISON: 2013 FINDINGS: The lungs appear clear of acute infiltrate. The heart is normal size IMPRESSION: No acute abnormalities displayed
[2019-10-30 16:11] LABS: Anisocytosis SLIGHT; Blood Morphology Comment NOTED (NOT SEEN); Platelet Estimate ADEQ
[2019-10-30 16:12] LABS: Macrocytosis SLIGHT; Poikilocytosis SLIGHT
[2019-10-30] MEDS ORDERED: THIAMINE 200 MG/2 ML INJ ONE (16:46)
[2019-10-30] MEDS ORDERED: NA CHLORIDE 0.9% 1,000 ML ONE (16:46)
[2019-10-30] MEDS ORDERED: FAMOTIDINE 20 MG/2 ML VIAL IV ONE (16:46)
--- NOTE | 2019-10-30 17:28 | EDPHYS ---
Physician Documentation [facility] Name: Nahid Espinoza Age: 49 yrs Sex: Male : 1970 Arrival Date: 10/30/2019 Time: 14:10 Bed 25 Private MD: [facility] ED Physician Justin Luevano HPI: 10/29 15:57 This 49 yrs old Male presents to ER via Ambulatory with complaints of Ankle mercy Swelling, Kidney Problem. 15:57 The patient presents with pain, swelling. The complaints affect the right leg and left mercy leg. Onset: The symptoms/episode began/occurred 5 day(s) ago. Context: The problem was sustained at an unknown location. Associated signs and symptoms: The patient has no apparent associated signs or symptoms. Modifying factors: The symptoms are alleviated by nothing, the symptoms are aggravated by nothing. Severity of symptoms: At their worst the symptoms were mild, moderate, in the emergency department the symptoms are unchanged. The patient has experienced similar episodes in the past, a few times. Historical: - Allergies: 14:27 PENICILLINS; rash; hb - PMHx: 14:27 High Cholesterol; Hypertension; hb - PSHx: 14:27 Hernia repair; hb - Immunization history:: Adult Immunizations up to date. - Social history:: Smoking status: Patient denies any tobacco usage or history of. Patient uses alcohol, on a daily basis. "a big yeti cup daily" Last drink was last night. Pt reports that he has had DTs before and was placed on Librium and did well with not drinking but then he started drinking again.. - Family history:: not pertinent. ROS: 15:57 Constitutional: Negative for fever, chills, and weight loss, Eyes: Negative for injury, mercy pain, redness, and discharge, ENT: Negative for injury, pain, and discharge, Neck: Negative for injury, pain, and swelling, Cardiovascular: Negative for chest pain, palpitations, and edema, Respiratory: Negative for shortness of breath, cough, wheezing, and pleuritic chest pain, Abdomen/GI: Negative for abdominal pain, nausea, vomiting, diarrhea, and constipation, Back: Negative for injury and pain, : Negative for injury, bleeding, discharge, and swelling, Skin: Negative for injury, rash, and discoloration, Neuro: Negative for headache, weakness, numbness, tingling, and seizure, Psych: Negative for depression, anxiety, suicide ideation, homicidal ideation, and hallucinations, Allergy/Immunology: Negative for hives, rash, and allergies, Endocrine: Negative for neck swelling, polydipsia, polyuria, polyphagia, and marked weight changes, Hematologic/Lymphatic: Negative for swollen nodes, abnormal bleeding, and unusual bruising. 15:57 MS/extremity: Positive for swelling, tenderness, of the right leg and left leg. Exam: 15:57 Constitutional: This is a well developed, well nourished patient who is awake, alert, mercy and in no acute distress. Head/Face: Normocephalic, atraumatic. Eyes: Pupils equal round and reactive to light, extra-ocular motions intact. Lids and lashes normal. Conjunctiva and sclera are non-icteric and not injected. Cornea within normal limits. Periorbital areas with no swelling, redness, or edema. ENT: Nares patent. No nasal discharge, no septal abnormalities noted. Tympanic membranes are normal and external auditory canals are clear. Oropharynx with no redness, swelling, or masses, exudates, or evidence of obstruction, uvula midline. Mucous membranes moist. Neck: Trachea midline, no thyromegaly or masses palpated, and no cervical lymphadenopathy. Supple, full range of motion without nuchal rigidity, or vertebral point tenderness. No Meningismus. Chest/axilla: Normal chest wall appearance and motion. Nontender with no deformity. No lesions are appreciated. Cardiovascular: Regular rate and rhythm with a normal S1 and S2. No gallops, murmurs, or rubs. Normal PMI, no JVD. No pulse deficits. Respiratory: Lungs have equal breath sounds bilaterally, clear to auscultation and percussion. No rales, rhonchi or wheezes noted. No increased work of breathing, no retractions or nasal flaring. Abdomen/GI: Soft, non-tender, with normal bowel sounds. No distension or tympany. No guarding or rebound. No evidence of tenderness throughout. Back: No spinal tenderness. No costovertebral tenderness. Full range of motion. Male : Normal genitalia with no discharge or lesions. Skin: Warm, dry with normal turgor. Normal color with no rashes, no lesions, and no evidence of cellulitis. Neuro: Awake and alert, GCS 15, oriented to person, place, time, and situation. Cranial nerves II-XII grossly intact. Motor strength 5/5 in all extremities. Sensory grossly intact. Cerebellar exam normal. Normal gait. Psych: Awake, alert, with orientation to person, place and time. Behavior, mood, and affect are within normal limits. 15:57 Musculoskeletal/extremity: Extremities: grossly normal except: swelling, ROM: full active range of motion, full passive range of motion, Circulation is intact in all extremities. Sensation intact. Compartment Syndrome exam of affected extremity: is normal. DVT Exam: no pain, no tenderness, negative Homans' sign noted on exam, no appreciated bluish discoloration, no erythema, no increased warmth, swelling. Vital Signs: 14:24 BP 115 / 78; Pulse 73; Resp 16; Temp 97.7; Pulse Ox 98% on R/A; Weight 124.74 kg; hb Height 5 ft. 11 in. (180.34 cm); Pain 0/10; 15:51 BP 125 / 81; Pulse 66; Resp 16; Pulse Ox 100% ; sv 16:56 BP 129 / 82; Pulse 64; Resp 15; Pulse Ox 100% ; sv 17:49 BP 128 / 85; Pulse 63; Resp 18; Pulse Ox 100% ; sv 18:20 BP 122 / 93; Pulse 65; Resp 16; Pulse Ox 100% ; sv 19:00 BP 130 / 89; Pulse 69; Resp 17; Pulse Ox 100% ; Pain 0/10; rv 14:24 Body Mass Index 38.35 (124.74 kg, 180.34 cm) hb MDM: 14:44 Patient medically screened. [facility] 15:59 Data reviewed: vital signs, nurses notes, lab test result(s), EKG, radiologic studies, [facility] CT scan, doppler, plain films. 10/29 14:48 Order name: Basic Metabolic Panel [facility] 10/29 14:48 Order name: CBC with Diff [facility] 10/29 14:48 Order name: LFT's; Complete Time: 16:09 [facility] 10/29 14:48 Order name: Magnesium; Complete Time: 16:09 [facility] 10/29 14:48 Order name: NT PRO-BNP; Complete Time: 16:09 [facility] 10/29 14:48 Order name: PT-INR; Complete Time: 16:09 [facility] 10/29 14:48 Order name: Troponin (emerg Dept Use Only); Complete Time: 16:09 [facility] 10/29 14:48 Order name: XRAY Chest (1 view); Complete Time: 16:09 [facility] 10/29 14:48 Order name: Lipase; Complete Time: 16:09 [facility] 10/29 14:49 Order name: Basic Metabolic Panel; Complete Time: 16:09 EDMS 10/29 14:49 Order name: CBC with Automated Diff; Complete Time: 16:26 EDMS 10/29 15:59 Order name: AMMONIA; Complete Time: 17:26 [facility] 10/29 16:11 Order name: Manual Differential; Complete Time: 16:26 EDMS 10/29 16:13 Order name: ETOH Level; Complete Time: 17:26 [facility] 10/29 14:48 Order name: EKG; Complete Time: 14:50 [facility] 10/29 14:48 Order name: Cardiac monitoring; Complete Time: 16:55 [facility] 10/29 14:48 Order name: EKG - Nurse/Tech; Complete Time: 16:25 [facility] 10/29 14:48 Order name: IV Saline Lock; Complete Time: 15:03 [facility] 10/29 14:48 Order name: Labs collected and sent; Complete Time: 15:03 [facility] 10/29 14:48 Order name: O2 Per Protocol; Complete Time: 15:03 [facility] 10/29 14:48 Order name: O2 Sat Monitoring; Complete Time: 15:03 [facility] 10/29 14:48 Order name: CT Stone Protocol; Complete Time: 17:48 [facility] 10/29 14:48 Order name: US Extremity Venous W Compression Joey; Complete Time: 16:09 [facility] 10/29 16:13 Order name: US Abdomen Limited; Complete Time: 19:06 [facility] Administered Medications: 16:54 Drug: NS 0.9% 1000 ml Route: IV; Rate: 75 ml/hr; Site: left antecubital; sv 19:38 Follow up: IV Status: Infusion continued upon transfer rv 16:54 Drug: Pepcid 20 mg Route: IVP; Site: left antecubital; sv 17:48 Follow up: Response: No adverse reaction sv 16:55 Drug: Thiamine 100 mg Route: IV; Rate: bolus; Site: left antecubital; sv 16:56 Follow up: Response: No adverse reaction; IV Status: Completed infusion; IV Intake: 1ml sv 17:48 Drug: levofloxacin 500 mg Volume: 100 ml; Route: IVPB; Infused Over: 60 mins; Site: sv left antecubital; 18:48 Follow up: Response: No adverse reaction; IV Status: Completed infusion; IV Intake: sv 100ml Disposition: 10/30/19 17:28 Transfer ordered to [facility]. Diagnosis are Alcohol abuse, Alcoholic cirrhosis of liver without ascites, Cholelithiasis, Cholecystitis, Edema, unspecified. - Reason for transfer: Higher level of care. - Accepting physician is to [facility]. - Condition is Fair. - Problem is new. - Symptoms have improved. Signatures: Dispatcher [employer] EDEstefanía Herrera RN RN Justin Rodriguez MD MD cha Baxter, Heather, RN RN Shaka Chow RN RN rv Corrections: (The following items were deleted from the chart) 18:20 17:04 Social history: Patient uses alcohol, on a daily basis. "a big yeti cup daily". svsv 20:06 17:28 10/30/2019 17:28 Transfer ordered to [facility]. rv Diagnosis is Alcohol abuse; Alcoholic cirrhosis of liver without ascites; Cholelithiasis; Cholecystitis; Edema, unspecified. Reason for transfer: Higher level of care. Accepting physician is to [facility]. Condition is Fair. Problem is new. Symptoms have improved. mercy
--- NOTE | 2019-10-30 17:28 | ER ---
Nurse's Notes [facility] Name: Nahid Espinoza Age: 49 yrs Sex: Male : 1970 Arrival Date: 10/30/2019 Time: 14:10 Bed 25 Private MD: Leonardo Segovia Diagnosis: Alcohol abuse;Alcoholic cirrhosis of liver without ascites;Cholelithiasis;Cholecystitis;Edema, unspecified Presentation: 10/29 14:24 Chief complaint: Bilateral lower leg and ankle swelling x 2 days. Coronavirus screen: hb Proceed with normal triage. Ebola Screen: No symptoms or risks identified at this time. Initial Sepsis Screen: Does the patient meet any 2 criteria? No. Patient's initial sepsis screen is negative. Does the patient have a suspected source of infection? No. Patient's initial sepsis screen is negative. Risk Assessment: Do you want to hurt yourself or someone else? Patient reports no desire to harm self or others. Onset of symptoms was October 29, 2019. 14:24 Method Of Arrival: Ambulatory hb 14:24 Acuity: KATIE 3 hb Historical: - Allergies: 14:27 PENICILLINS; rash; hb - PMHx: 14:27 High Cholesterol; Hypertension; hb - PSHx: 14:27 Hernia repair; hb - Immunization history:: Adult Immunizations up to date. - Social history:: Smoking status: Patient denies any tobacco usage or history of. Patient uses alcohol, on a daily basis. "a big yeti cup daily" Last drink was last night. Pt reports that he has had DTs before and was placed on Librium and did well with not drinking but then he started drinking again.. - Family history:: not pertinent. Screenin:28 Abuse screen: Denies threats or abuse. Denies injuries from another. Nutritional hb screening: No deficits noted. Tuberculosis screening: No symptoms or risk factors identified. Fall Risk None identified. Assessment: 14:50 General: Appears in no apparent distress. comfortable, well developed, Behavior is sv calm, cooperative, appropriate for age. Pain: Denies pain. Neuro: Level of Consciousness is awake, alert, obeys commands, Oriented to person, place, time, situation, Moves all extremities. Full function Gait is steady, Speech is normal. Cardiovascular: Patient's skin is warm and dry. Pulses are palpable in right radial artery, right dorsalis pedis artery, left radial artery and left dorsalis pedis artery. Respiratory: Reports shortness of breath on exertion Airway is patent Respiratory effort is even, unlabored, Respiratory pattern is regular, symmetrical. GI: Abdomen is round. Derm: Skin is intact, Skin is normal. Musculoskeletal: Circulation, motion, and sensation intact. Range of motion: intact in all extremities, Swelling present in anterior aspect of right ankle, dorsum of right foot, anterior aspect of left ankle and dorsum of left foot. 16:54 Reassessment: Patient appears in no apparent distress at this time. No changes from sv previously documented assessment. Patient and/or family updated on plan of care and expected duration. Pain level reassessed. Patient is alert, oriented x 3, equal unlabored respirations, skin warm/dry/pink. 17:49 Reassessment: Patient appears in no apparent distress at this time. No changes from sv previously documented assessment. Patient and/or family updated on plan of care and expected duration. Pain level reassessed. Patient is alert, oriented x 3, equal unlabored respirations, skin warm/dry/pink. Waiting for Dr Yañez to speak with the pt regarding results and transfer. 19:16 Reassessment: Patient appears in no apparent distress at this time. Patient and/or rv family updated on plan of care and expected duration. Pain level reassessed. Patient is alert, oriented x 3, equal unlabored respirations, skin warm/dry/pink. DR YAÑEZ EXPLAINED TO THE PATIENT THE TEST RESULTS AND PLAN OF CARE. AWAITING TRANSFER TO ANOTHER HOSPITAL. Patient denies pain at this time. 19:37 Reassessment: REPORT GIVEN TO SELWYN JUÁREZ OF [facility]. rv Vital Signs: 14:24 BP 115 / 78; Pulse 73; Resp 16; Temp 97.7; Pulse Ox 98% on R/A; Weight 124.74 kg; hb Height 5 ft. 11 in. (180.34 cm); Pain 0/10; 15:51 BP 125 / 81; Pulse 66; Resp 16; Pulse Ox 100% ; sv 16:56 BP 129 / 82; Pulse 64; Resp 15; Pulse Ox 100% ; sv 17:49 BP 128 / 85; Pulse 63; Resp 18; Pulse Ox 100% ; sv 18:20 BP 122 / 93; Pulse 65; Resp 16; Pulse Ox 100% ; sv 19:00 BP 130 / 89; Pulse 69; Resp 17; Pulse Ox 100% ; Pain 0/10; rv 14:24 Body Mass Index 38.35 (124.74 kg, 180.34 cm) hb ED Course: 14:10 Patient arrived in ED. ag5 14:12 Leonardo Segovia DO is Private Physician. ag5 14:27 Triage completed. hb 14:27 Arm band placed on. hb 14:44 Justin Yañez MD is Attending Physician. mercy 14:47 Estefanía Navarro, RN is Primary Nurse. sv 14:55 Patient has correct armband on for positive identification. Bed in low position. Call sv light in reach. Side rails up X2. equipment monitor phototypesetting on. Pulse ox on. NIBP on. Door closed. Pillow given. Head of bed elevated. 14:55 Inserted saline lock: 20 gauge in left antecubital area, using aseptic technique. Blood sv collected. Flushed left antecubital with 5 ml normal saline. 14:59 Note: us to get after ct. hr 15:03 Basic Metabolic Panel Sent. sv 15:03 CBC with Diff Sent. sv 15:08 CT Stone Protocol In Process Unspecified. EDMS 15:30 US Extremity Venous W Compression Joey In Process Unspecified. EDMS 15:45 ED physician to see patient. sv 15:47 X-ray(s) taken. sv 15:51 XRAY Chest (1 view) In Process Unspecified. EDMS 16:55 Initial lab(s) drawn, by me, sent to lab. sv 17:28 US Abdomen Limited In Process Unspecified. EDMS 19:01 Report given to Harish SINGLETARY. sv 19:07 Primary Nurse role handed off by Estefanía Navarro, GEMINI sv 19:16 Shaka Gutierrez, GEMINI is Primary Nurse. rv 19:38 No provider procedures requiring assistance completed. IV is patent, with fluids rv infusing freely, with good blood return, Patient transferred, IV remains in place. Administered Medications: 16:54 Drug: NS 0.9% 1000 ml Route: IV; Rate: 75 ml/hr; Site: left antecubital; sv 19:38 Follow up: IV Status: Infusion continued upon transfer rv 16:54 Drug: Pepcid 20 mg Route: IVP; Site: left antecubital; sv 17:48 Follow up: Response: No adverse reaction sv 16:55 Drug: Thiamine 100 mg Route: IV; Rate: bolus; Site: left antecubital; sv 16:56 Follow up: Response: No adverse reaction; IV Status: Completed infusion; IV Intake: 1ml sv 17:48 Drug: levofloxacin 500 mg Volume: 100 ml; Route: IVPB; Infused Over: 60 mins; Site: sv left antecubital; 18:48 Follow up: Response: No adverse reaction; IV Status: Completed infusion; IV Intake: sv 100ml Intake: 16:56 IV: 1ml; Total: 1ml. sv 18:48 IV: 100ml; Total: 101ml. sv Outcome: 17:28 ER care complete, transfer ordered by . [facility] 19:39 Transferred by ground EMS to [facility], [facility], Transfer form completed. rv X-rays sent w/ patient. 19:39 Condition: good 19:39 Instructed on the need for transfer, Demonstrated understanding of instructions. 20:06 Patient left the ED. rv Signatures: Dispatcher [employer] Estefanía Jarrett RN RN sv Anderson, Corey, MD MD cha Rod, Haley hr Baxter, Heather, RN RN hb Vicente, Ronaldo, RN RN rv Gaskin, Ajare ag5 Corrections: (The following items were deleted from the chart) 18:20 17:04 Social history: Patient uses alcohol, on a daily basis. "a big yeti cup daily". svsv 19:18 19:16 Reassessment: Patient appears in no apparent distress at this time. Patient rv and/or family updated on plan of care and expected duration. Pain level reassessed. Patient is alert, oriented x 3, equal unlabored respirations, skin warm/dry/pink. DR YAÑEZ EXPLAINED TO THE PATIENT THE TEST RESULTS AND PLAN OF CARE. AWAITING TRANSFER TO ANOTHER HOSPITAL. rv
[2019-10-30] MEDS ORDERED: Levofloxacin500mg IV 500 MG/100 ML BAG IV ONE (17:44)
--- NOTE | 2019-10-30 18:05 | RAD REPORT ---
EXAM DESCRIPTION: US - Abdomen Exam Limited - 10/30/2019 5:28 pm CLINICAL HISTORY: Abdominal pain. FINDINGS: The gallbladder is distended measuring 13 centimeters. A gallstone is not seen. However th ere is a small amount of sludge. Gallbladder wall upper limits normal thickness. The biliary tree is normal caliber. IMPRESSION: Distended gallbladder containing small amount of sludge
[2019-10-30 20:18] VITALS: TEMP 97.7
[2019-10-30 20:19] VITALS: O2SAT 100
[2019-10-30 20:25] VITALS: BP 130/89
--- NOTE | 2019-10-31 15:53 | EKG ---
Test Date: 2019-10-30 Test Time: 16:21:11 [employer] Portfolio Manager: STEPHY MEASUREMENT RESULTS: Intervals: Rate: 66 NC: 176 QRSD: 98 QT: 404 QTc: 423 [place]: P: 29 NC: 176 QRS: -44 T: 12 INTERPRETIVE STATEMENTS: Normal sinus rhythm Left axis deviation Possible Anterolateral infarct, age undetermined Abnormal ECG Compared to ECG 04/30/2014 10:44:42 Myocardial infarct finding now present Electronically Signed On 10-31-19 15:50:25 CDT by Tayo Arita
== END 2019-10-30 20:06 | disposition short-term general hospital (02) ==
LOC: ER 14:08
DX: K70.30 Alcoholic cirrhosis of liver without ascites (principal); F10.10 Alcohol abuse, uncomplicated; K80.20 Calculus of gallbladder without cholecystitis without obstruction; I10 Essential (primary) hypertension; Z88.0 Allergy status to penicillin
CPT/HCPCS: 93005; 85025; 80048; 36415; 80320; 82140; 83735; 85610; 80076; 84484; 83690; 83880; 76377; 74176; 71045; 93970; 76705; J3411; J7030; 96361; 96365; 96375; 99285

== ENCOUNTER 2020-07-18 17:52 | Observation (INO) | payer BC ==
--- OUTSIDE RECORDS SUMMARY | 2020-07-18 17:55 | XMS REPORT | Clinical Summary ---
:1970 Author Organization [facility] Address [address] [place] [address] Care Team Providers Name Role Phone LucaJamshid Primary Care Provider Allergies Active Allergy Reactions Severity Noted Date Comments Penicillins Rash Low 10/30/2019 Medications Medication Sig Dispensed Refills Start End Date Status Date citalopram (CELEXA) Take 40 mg by 0 Active 40 MG tablet mouth daily. carvediloL (COREG) Take 37.5 mg 0 Active 25 MG tablet by mouth 2 (two) times daily with breakfast and dinner . traZODone (DESYREL) Take 100 mg 0 Active 100 MG tablet by mouth nightly. fenofibrate Take 54 mg by 0 Acti ve (LOFIBRA) 54 MG mouth daily. tablet lisinopriL Take 40 mg by 0 Activ e (PRINIVIL,ZESTRIL) mouth daily. 40 MG tablet atorvastatin Take 10 mg by 0 Act tammy (LIPITOR) 10 MG mouth daily. tablet aspirin 81 MG EC Take 81 mg by 0 Active tablet mouth daily. multivitamin Take 1 tablet 30 tablet 1 11/02/19 Act tammy (THERAGRAN) tablet by mouth 0 21 daily. thiamine 100 MG Take 1 tablet 30 tablet 1 11/02/19 Active tablet (100 mg 0 21 total) by mouth daily. zinc sulfate Take 1 30 capsule 1 11/02/19 Active (ZINCATE) 220 (50) capsule (220 0 21 mg capsule mg total) by mouth daily. chlordiazePOXIDE Take 1 6 capsule 0 11/02/19 Dis continued (LIBRIUM) 25 MG capsule (25 0 20 capsule mg total) by mouth 2 (two) times daily as needed (Alcohol withdrawal; take 1-2 daily as needed). Max Daily Amount: 50 mg chlordiazePOXIDE Take 1 6 capsule 0 12/21/19 Dis continued (LIBRIUM) 25 MG capsule (25 0 20 (E rror) capsule mg total) by mouth 2 (two) times daily as needed (Alcohol withdrawal; take 1-2 daily as needed). Max Daily Amount: 50 mg traMADoL (ULTRAM) 50 Take 1 tablet 30 tablet 0 01/03 mg tablet (50 mg total) 0 20 by mouth every 6 (six) hours as needed for up to 10 days. Max Daily Amount: 200 mg Active Problems Problem Noted Date Symptomatic cholelithiasis 12/25/2019 Essential hypertension 11/01/2019 Mixed hyperlipidemia 11/01/2019 Coronary artery disease involving [place] coronary [place] heart 11/01/2019 without angina pectoris Alcohol use 10/31/2019 Elevated LFTs 10/31/2019 Cholelithiasis 10/30/2019 Encounters Date Type Specialty Care Team Description 02/22/2020 Audio - Hepatology Leeroy Madrigal Abnormal liver function test (Primary Dx); Telemedicine MD Jake Fatty liver Kami Hawley, HEALTHCARE PROJECT MANAGER 02/22/2020 Telephone Hepatology Marleen, Appointment Kami Reeder HEALTHCARE PROJECT MANAGER 02/21/2020 Telephone Hepatology Denise Charles, Appointment DELPHINE 12/31/2019 Documentation Hepatology Pavithra Boogie PA-C 12/25/2019 Surgery Kayla Beltran, PORTILLO Bowles MD STECTOMY 12/25/2019 Anesthesia Event Irineo Riley MD 12/25/2019 Hospital Encounter Kayla Beltran MD 12/21/2019 Hospital Encounter Pre-Admission Testing 11/30/2019 Abstract Hepatology Jewell Gonzalez RN 11/30/2019 Telephone Hepatology Elton Hawley, HEALTHCARE PROJECT MANAGER 11/22/2019 Video - Hepatology PraveenChalo aleman Abnormal moses er function test (Primary Dx); Telemedicine MD Yokasta Choledocholithiasis; Pavithra Boogie Fatty liver; EZEQUIEL Smith History of alc ohol abuse; Macrocytic anem ia; Immunity status testing 11/14/2019 Orders Only Hepatology Pavithra Boogie Abnormal liver function tests; EZEQUIEL mSith Fatty liver 11/14/2019 Telephone Hepatology Pavithra Boogie Follow-up EZEQUIEL Smith 11/01/2019 Anesthesia Event Naga Carranza, COCOA BEAN ROASTER HELPER 11/01/2019 Surgery Gastroenterology Joni Segovia PAPI LLOTOMY Kanu, MD 11/01/2019 Anesthesia Event Gastroenterology Ramya Vergara MD Ahmmed, Zahra Tiwana, COC[employer] BE[employer] ROASTER HELPER 10/30/2019 Hospital Encounter General Internal Segovia, Jordana Calcu [place] of gallbladder without cholecystitis without obstruction; - Medicine MD Isaak Alcohol dependence with unspecified alco hol-induced disorder (HCC); 11/02/2019 Zak, Essential hyper tension; Marielos Calculus of gal lbladder with biliary obstruction but without cholecystitis; MD Leatha Elevated LFTs; Yves, Coronary artery disease involving [place] heart, angina presence unspecified, unspecified vessel or lesion type; Pearl Brown, Alcohol use; Alcoholic hepat itis without ascites 10/30/2019 Telephone Gastroenterology Alyce Yousif Abnormal L simon Dutta MD Enzymes after 07/18/2019 Social History Tobacco Use Types Packs/Day Years Used Date Former Smoker Smokeless Tobacco: Never Used Comments: quit age 20 Alcohol Use Drinks/Week oz/Week Comments No Alcohol Habits Answer Date Recorded How often do you have a drink containing alcohol? Never 12/21/2019 How many drinks containing alcohol do you have on a typical Not asked day when you are drinking? How often do you have six or more drinks on one occasion? No t asked Sex Assigned at Date Recorded Not on file Last Filed Vital Signs Vital Sign Reading Time Taken Comments Blood Pressure 118/62 12/25/2019 11:30 AM CDT Pulse 70 12/25/2019 11:30 AM CDT Temperature 36.7 C (98 F) 12/25/2019 11:30 AM CDT Respiratory Rate 18 12/25/2019 11:30 AM CDT Oxygen Saturation 96% 12/25/2019 11:30 AM CDT Inhaled Oxygen Concentration 21% 11/02/2019 8:51 AM CDT Weight 136.3 kg (300 lb 7.8 oz) 12/25/2019 6:00 AM CDT Height 180.3 cm (5' 11") 12/25/2019 6:00 AM CDT Body Mass Index 41.91 12/25/2019 6:00 AM CDT Plan of Treatment Date Type Specialty Care Team Description 08/22/2020 Office Visit Hepatology Leeroy Madrigal MD [address] [place], [place] [address] [phone] Health Maintenance Due Date Last Done Comments COLON CANCER SCREENING COLONOSCOPY 1970 PNEUMOCOCCAL VACCINE 0-64 YRS (1 of 1 - PPSV23) 10/06/1975 DEPRESSION SCREENING (12+) 07/25/2019 INFLUENZA VACCINE (#1) 2020 LIPID PANEL 10/31/2022 11/01/2019 Procedures Procedure Name Priority Date/Time Associated Diagnosis Comme nts TRANSFUSION SERVICE 12/26/2019 5:53 REPORT - SCAN PM CDT RHYTHM STRIP - SCAN 12/26/2019 2:40 PM CDT TISSUE EXAM AP Routine 12/25/2019 8:38 Results for AM CDT this procedure are in the results section. LAPAROSCOPY,CHOLECYSTE 12/25/2019 7:13 Symptomatic CTOMY AM CDT cholelithiasis (MANUAL DIFFERENTIAL) Routine 12/25/2019 6:07 Re sults for AM CDT this procedure are in the results section. CBC WITH PLATELET Routine 12/25/2019 6:07 Result s for COUNT + MANUAL DIFF AM CDT this pro cedure are in the results section. TYPE AND SCREEN, Routine 12/25/2019 6:07 Results for AUTOMATED AM CDT this procedure are in the results section. BASIC METABOLIC PANEL Routine 12/25/2019 6:07 Re sults for (7) AM CDT this procedure are in the results section. CBC W/PLT+MANUAL DIFF Routine 12/25/2019 6:07 Re sults for AM CDT this procedure are in the results section. CBC W/PLT COUNT & AUTO Routine 11/22/2019 10:44 Abnormal liver Results for DIFFERENTIAL AM CDT function tests this procedure Fatty liver are in the results section. BASIC METABOLIC PANEL Routine 11/22/2019 10:44 Abnormal liver Results for (7) AM CDT function tests this procedure Fatty liver are in the results section. HEPATIC FUNCTION PANEL Routine 11/22/2019 10:44 Abnormal liver Results for AM CDT function tests this procedure Fatty liver are in the results section. PROTHROMBIN TIME/INR Routine 11/22/2019 10:44 Abnormal liver R esults for AM CDT function tests this procedure Fatty liver are in the results section. REPORT OF PROCEDURE - 11/05/2019 3:21 ENDOSCOPY SCAN PM CDT TRANSFUSION SERVICE 11/05/2019 9:20 REPORT - SCAN AM CDT REPORT OF PROCEDURE - 11/03/2019 9:26 ENDOSCOPY URL AM CDT POCT-GLUCOSE METER Routine 11/02/2019 8:56 Resul ts for AM CDT this procedure are in the results section. HEREDITARY Routine 11/02/2019 4:04 Results for HEMOCHROMATOSIS DNA AM CDT this pro cedure are in the results section. COMPREHENSIVE Routine 11/02/2019 4:04 Results fo r METABOLIC PANEL AM CDT this procedu re are in the results section. MAGNESIUM Routine 11/02/2019 4:04 Results for AM CDT this procedure are in the results section. PHOSPHORUS Routine 11/02/2019 4:04 Results for AM CDT this procedure are in the results section. CBC (HEMOGRAM ONLY) Routine 11/02/2019 4:04 Resu lts for AM CDT this procedure are in the results section. POCT-GLUCOSE METER Routine 11/01/2019 10:38 Resul ts for PM CDT this procedure are in the results section. POCT-GLUCOSE METER Routine 11/01/2019 5:48 Resul ts for PM CDT this procedure are in the results section. POCT-GLUCOSE METER Routine 11/01/2019 11:49 Resul ts for AM CDT this procedure are in the results section. FL ERCP Routine 11/01/2019 10:30 Results for AM CDT this procedure are in the results section. ERCP,BALLOON SWEEPING 11/01/2019 9:24 Bile duct obstr uction AM CDT Special Needs (C-ARM) PROCEDURE W/ C-ARM 11/01/2019 9:24 AM CDT Bile duct o bstruction Special Needs (C-ARM) ERCP,PAPILLOTOMY 11/01/2019 9:24 AM CDT Bile duct obs truction Special Needs (C-ARM) POCT-GLUCOSE METER Routine 11/01/2019 6:20 AM CDT Results for this procedure are i n the results section . ZINC Routine 11/01/2019 4:01 AM CDT Resu lts for this procedure are i n the results section . MITOCHONDRIAL AB TITER Routine 11/01/2019 3:57 AM CDT Results for this procedure are i n the results section . MITOCHONDRIAL AB SCREEN Routine 11/01/2019 3:57 AM CDT Results for this procedure are i n the results section . LIPID PANEL Routine 11/01/2019 3:57 AM CDT Resu lts for this procedure are i n the results section . FERRITIN Routine 11/01/2019 3:57 AM CDT Resu lts for this procedure are i n the results section . IRON, TIBC, % SAT. (WITHOUT Routine 11/01/2019 3:57 AM CDT Results for this FERRITIN) procedure are i n the results section . CERULOPLASMIN Routine 11/01/2019 3:57 AM CDT Res ults for this procedure are i n the results section . [id number]\\, SERUM Routine 11/01/2019 3:57 AM CDT Results for this procedure are i n the results section . VITAMIN B12 AND FOLATE Routine 11/01/2019 3:57 AM CDT Results for this procedure are i n the results section . HEPATITIS B SURFACE ANTIBODY Routine 11/01/2019 3:57 AM CDT Results for this procedure are i n the results section . HEPATITIS A ANTIBODY, IGG Routine 11/01/2019 3:57 AM CDT Results for this procedure are i n the results section . IMMUNOGLOBULIN G (IGG) Routine 11/01/2019 3:57 AM CDT Results for this procedure are i n the results section . ACTIN (SMOOTH MUSCLE) Routine 11/01/2019 3:57 AM CDT Results for this ANTIBODY, IGG procedure are in the results section . ANTI-MITOCHONDRIAL AB, Routine 11/01/2019 3:57 AM CDT REFLEX TO TITER ANTI-NUCLEAR ANTIBODY (GUNNAR) Routine 11/01/2019 3:57 AM CDT Results for this procedure are i n the results section . BILIRUBIN, DIRECT Routine 11/01/2019 3:57 AM CDT Results for this procedure are i n the results section . HEPATITIS PANEL, ACUTE Routine 11/01/2019 3:57 AM CDT Results for this procedure are i n the results section . PROTHROMBIN TIME/INR Routine 11/01/2019 3:57 AM CDT Results for this procedure are i n the results section . COMPREHENSIVE METABOLIC Routine 11/01/2019 3:57 AM CDT Results for this PANEL procedure are i n the results section . MAGNESIUM Routine 11/01/2019 3:57 AM CDT Resu lts for this procedure are i n the results section . PHOSPHORUS Routine 11/01/2019 3:57 AM CDT Resu lts for this procedure are i n the results section . CBC (HEMOGRAM ONLY) Routine 11/01/2019 3:57 AM CDT Results for this procedure are i n the results section . POCT-GLUCOSE METER Routine 10/31/2019 11:08 PM CDT Results for this procedure are i n the results section . ABORH, MANUAL STAT 10/31/2019 10:46 AM CDT Res ults for this procedure are i n the results section . TYPE AND SCREEN, AUTOMATED Routine 10/31/2019 9:39 AM CDT Results for this procedure are i n the results section . MR ABDOMEN WO CONTRAST MRCP STAT 10/31/2019 8:57 AM CDT Results for this procedure are i n the results section . POCT-GLUCOSE METER Routine 10/31/2019 5:57 AM CDT Results for this procedure are i n the results section . CBC W/PLT COUNT & AUTO Routine 10/31/2019 2:53 AM CDT Results for this DIFFERENTIAL procedure are i n the results section . COMPREHENSIVE METABOLIC STAT 10/31/2019 2:53 AM CDT Results for this PANEL procedure are i n the results section . CBC W/PLT COUNT & AUTO Routine 10/31/2019 2:53 AM CDT Results for this DIFFERENTIAL procedure are i n the results section . BASIC METABOLIC PANEL (7) Routine 10/31/2019 2:53 AM CDT Results for this procedure are i n the results section . APTT Routine 10/31/2019 2:52 AM CDT Resu lts for this procedure are i n the results section . PROTHROMBIN TIME/INR Routine 10/31/2019 2:52 AM CDT Results for this procedure are i n the results section . AMMONIA Routine 10/31/2019 2:52 AM CDT Resu lts for this procedure are i n the results section . POCT-GLUCOSE METER Routine 10/31/2019 12:21 AM CDT Results for this procedure are i n the results section . after 07/18/2019 Results TRANSFUSION SERVICE REPORT - SCAN (12/26/2019 5:53 PM CDT)Only the most recent of2 resultswithin the time period is included. Narrative Performed At This result has an attachment that is no t available. RHYTHM STRIP - SCAN (12/26/2019 2:40 PM CDT) Narrative Performed At This result has an attachment that is no t available. Tissue Exam (12/25/2019 8:38 AM CDT) Case Report Surgical Pathology Report Case: [id number] [facility] Authorizing Provider: Kayla Hanson i, MD Collected: 12/25/2019 08:43 AM [facility] [place] [facility] [place] Received: 12/25/2019 09:37 AM [facility] Pathologist: Tamia Lopez MD Specimens: A) - Gallbladd er B) - Biop sy, Liver DIAGNOSIS [facility] Electronically A. GALLBLADDER, CHOLECYSTECTOMY: [facility] signed by Jessica, - CHRONIC CHOLECYSTITIS. MEDICAL JEANNIE Monsalve MD on 12/26/2019 at 1: 53 B. LIVER, CORE NEEDLE BIOPSY: PM - MILD STEATOSIS. - MILD PORTAL AND PERISINUSOIDAL FIBROSIS (FIBROS IS GRADE 2 OF 4) - NEGATIVE FOR BALLOONING DEGENERATION OR CHOLEST ASIS. - MILD BILE DUCT REACTION. Signing Pathologist Direct Phone Line: CLINICAL HISTORY Symptomatic [facility] cholelithiasis [K80.20] [facility] [id number] [facility] SPECIMEN SOURCE A. Gallbladder [facility] B. Biopsy, liver [facility] GROSS DESCRIPTION A. Received in formalin lab eled with the patient's name, accession number and "gallbladder" is a 9.7 x 3.5 x 0.8 cm previously opened gallbladder with a 0.2 cm in length by 0.2 cm in diameter attached [facility] cystic duct. The serosa is yellow-pink, smooth and hyperemic. The specimen is opened to reveal approximately 1 mL of hemorrhagic bile. Calculi are not identified. The mucosa is red-pink, trabeculate [facility] d and displays a 1.0 x 1.0 c m thickened area at the fundus. Sectioning of the area reveals a focally cystic wall measuring up to 0.4 cm thick. Cracker Off sections are submitted as follows: [facility] Section code A1-gallbladder and inked cystic duct margin A2-entire thickened area B. Received in formalin lab eled with the patient's name, accession number and "liver biopsy" is a 1.7 cm in length by 0.1 cm in diameter delgadillo-yellow soft tissue core which is filtered and submitted in toto in B1. HAZEL Burroughs (ASCP)cm MICROSCOPIC B. Section shows 1 core of l iver parenchyma with about 7 portal tracts and is adequate for evaluation. The architecture is preserved. There is mild steatosis (~5 - 10%), predominantly microvesicular ty [facility] DESCRIPTION pe. No ballooning degenerati on or Ema Denk hyaline is present. There is mild focal lobular inflammation. There is very mild portal lymphocytic inflammation. No significant interface hepatitis is see HEAL TH BCM n. The portal tracts have pr eserved bile ducts with mild bile duct reaction. No periductal inflammation, granulomas or bile duct scars are seen. Trichrome highlights mild increase in portal and mild perisinusoidal fibrosis. [facility] Special stains: Iron stain; No iron deposition in the hepatocytes. PAS (D): No hyaline globules are seen. Trichrome: Periportal and perisinusoidal fibrosis. Reticulin: Highlights preserved architecture. ACTIVITY SCORE (JESUS) Steatosis: ___ 0 (<5%) _X__ 1 (5-33%); ___ 2 (33-66); ___ 3 (>66 %) Lobular Inflammation: ___0 ; __X_1 (<2 foci/200x); __ 2 (2-4 foci/200x); ___ 3 (>4 foci/200x) Hepatocyte Ballooning: _X__ 0 (None); ___ 1 (few b allooned hepatocytes) ; ___ 2 (Many/prominent ballooning) Total: 2/8 FIBROSIS: __ 0 None __1 Perisinusoidal or periportal (perivenular) __1A Mild, zone 3, perisinusoidal "delicate" fibrosis __1B Moderate, zone 3, perisinusoidal "dense" fibrosis __1C Portal/periportal This category is included to accommodate cases with portal and/or darya portal fibrosis without accompanying pericellular/peris inusoidal fibrosis _X_ 2 Perisinusoidal and portal/periportal __3 Bridging fibrosis __4 Cirrhosis SPECIAL STUDIES The interpretation of this c ase included the use of immunohistochemistry or special stains. [facility] Control Slides Examined: In -house known positive controls were evaluated along with the test tissue. These control slides run alongside of the patients sample show appropriate staining. Internal [facility] MEDICAL JEANNIE TER tammy and negative controls when available are evaluated Immunohistochemistry technic al testing was performed at [facility], Pathology Laboratory where it was developed and its performance characteristics were determined. It has not be en cleared or approved by health system U.S. Food and Drug Administration. The FDA has determined that such clearance or approval is not necessary. The test is used for clinical purposes. It should not be regarde d as investigational or for research. This laboratory is certified under the Clinical Laboratory Improvement Amendments of 1988 (CLIA-88) as qualified to perform high complexity clinical laboratory testing. Specimen Tissue - Gallbladder structure (body str ucture) Tissue specimen (specimen) - Biopsy, Moses er Performing Organization Address City/State/Zipcode Phone Number [facility] [address] [place] [address] CENTER Manual Differential (12/25/2019 6:07 AM CDT) Pathologist Sig nature % Neutros (manual) 57 % [facility] % Lymphs (manual) 16 % [facility] % Monos (manual) 14 % [facility] % Eos (manual) 10 % [facility] % Baso (manual) 0 % [facility] % Bands (manual) 1 0 - 10 % [facility] % Atypical Lymphs 2 (H) 0 - 0 % [facility] # Neutros (manual) 3.08 1.80 - 8.00 [facility] # Lymphs (manual) 0.86 (L) 1.48 - 4.50 [facility] # Monos (manual) 0.76 0.00 - 1.30 [facility] # Eos (manual) 0.54 (H) 0.00 - 0.50 [facility] # Baso (manual) 0.00 0.00 - 0.20 [facility] # Bands (manual) 0.1 0.0 - 0.8 K/L [facility] # Atypical Lymphs 0.11 (H) 0.00 - 0.00 [facility] Total Counted 100 [facility] Bands plus Segmented 3.13 [facility] WBC Morphology Normal [facility] Platelet Morphology [facility] RBC Morphology Normal [facility] Specimen Blood Performing Organization Address City/State/Zipcode Phone Number [facility] [address] [place] [address] CENTER CBC with platelet count + manual diff (12/25/2019 6:07 AM CDT) Pathologist Sig nature WBC 5.4 3.5 - 10.5 K/L [facility] RBC 3.68 (L) 4.63 - 6.08 M/L [facility] Hemoglobin 11.6 (L) 13.7 - 17.5 GM/DL [facility] Hematocrit 35.4 (L) 40.1 - 51.0 % [facility] MCV 96.2 (H) 79.0 - 92.[address] [facility] MCH 31.5 25.7 - 32.[address] [facility] MCHC 32.8 32.3 - 36.5 GM/DL [facility] RDW 13.4 11.6 - 14.4 % [facility] Platelets 226 150 - 450 K/CU MM [facility] MPV 10.9 9.4 - 12.[address] [facility] Specimen Blood Performing Organization Address [facility]/Zipcode Phone Number [facility] [address] [place] [address] CENTER Type and screen, automated (12/25/2019 6:07 AM CDT)Only the most recent of2 resultswithin the time period is included. Pathologist Sig nature ABO/RH AUTOMATED O POSITIVE [facility] Ab Scrn NEGATIVE [facility] Specimen Blood Performing Organization Address [facility] Mex[facility]ode Phone Number [facility] [address] [place] [address] Basic Metabolic Panel (12/25/2019 6:07 AM CDT)Only the most recent of3 results within the time period is included. Sodium 138 136 - 145 meq/L [facility] Potassium 5.1 3.5 - 5.1 meq/L [facility] Chloride 105 98 - 107 meq/L [facility] CO2 27 22 - 29 meq/L [facility] BUN 15 7 - 21 mg/dL [facility] Creatinine 0.96 0.57 - 1.25 [facility] mg/dL [facility] Glucose 107 (H) 70 - 105 mg/dL [facility] Calcium 8.7 8.4 - 10.2 [facility] mg/dL [facility] EGFR 83Comment: ESTIMATED mL/min/1.[address] [facility] GFR IS NOT m [facility] CREATININE CLEARANCE IN PREDICTING GLOMERULAR FILTRATION RATE. ESTIMATED GFR IS NOT APPLICABLE FOR DIALYSIS PATIENTS. Specimen Blood Narrative Performed At [facility] [place] [facility] Performing Organization Address City/[facility]/Zipcode Phone Number [facility] [address] [place] [address] CENTER Prothrombin time/INR (11/22/2019 10:44 AM CDT)Only the most recent of3 results within the time period is included. Pathologist Sig nature INR 0.9 [facility] Comment: Reference Range 0.9-1.1 Moderate-intensity Warfarin Therapy 2.0-3.0 Higher-intensity Warfarin Therapy 3.0-4.0 PT 9.8 9.0 - 11.5 sec [facility] Comment: For more information on this test, go to: http://education.LoftyVistas/faq/LIC247 Specimen Blood Resulting Agency Comment Performing Organization Information: Site ID: [id number] Name: [facility] Address: [address] [place] [address], [place] [address] Director: Herve Stringer Performing Organization Address City/State/Zipcode Phone Number [facility] [address] [place] [address] [facility] CBC with platelet count + automated diff (11/22/2019 10:44 AM CDT) Pathologist Sig nature WBC 5.8 3.8 - 10.8 Thousand/uL [facility] RBC 3.08 (L) 4.20 - 5.80 Million/uL [facility] Hemoglobin 10.3 (L) 13.2 - 17.1 g/dL [facility] Hematocrit 31.2 (L) 38.5 - 50.0 % [facility] MCV 101.3 (H) 80.0 - 100.0 fL [facility] MCH 33.4 (H) 27.0 - 33.0 pg [facility] MCHC 33.0 32.0 - 36.0 g/dL [facility] RDW 13.1 11.0 - 15.0 % [facility] Platelets 353 140 - 400 Thousand/uL [facility] MPV 10.0 7.5 - 12.5 fL [facility] # Neutros 3,602 1,500 - 7,800 cells/uL [facility] # Lymphs 1,189 850 - 3,900 cells/uL [facility] # Monos 615 200 - 950 cells/uL [facility] # Eos 325 15 - 500 cells/uL [facility] # Baso 70 0 - 200 cells/uL [facility] % Neutros 62.1 % [facility] % Lymphs 20.5 % [facility] % Monos 10.6 % [facility] % Eos 5.6 % [facility] % Baso 1.2 % [facility] Specimen Blood Resulting Agency Comment Performing Organization Information: Site ID: [id number] Name: [facility] Address: [address] [place] [id number] Director: Herve Stringer Performing Organization Address [facility] Mexic[facility]ode Phone Number [facility] [address] [place] [address] [facility] Hepatic function panel (11/22/2019 10:44 AM CDT) Pathologist Sig nature Protein, Total, Serum 6.3 6.1 - 8.1 g/dL [facility] Albumin 3.8 3.6 - 5.1 g/dL [facility] GLOBULIN (QUEST) 2.5 1.9 - 3.7 g/dL [facility] (calc) Albumin Globulin Ratio 1.5 1.0 - 2.5 (calc) [facility] Bilirubin, Total 0.9 0.2 - 1.2 mg/dL [facility] Bilirubin, Direct 0.3 (H) < OR = 0.2 mg/dL [facility] Bilirubin, Indirect 0.6 0.2 - 1.2 mg/dL [facility] (calc) Alkaline Phosphatase, S 87 35 - 144 U/L [facility] AST (SGOT) 19 10 - 35 U/L [facility] ALT (SGPT) 11 9 - 46 U/L [facility] Specimen Blood Resulting Agency Comment Performing Organization Information: Site ID: [id number] Name: [facility] Address: [address] [place] [address], [place] [address] Director: Herve Stringer Performing Organization Address [facility] Mexicocode Phone Number [facility] [address] [place] [address] [facility] EKG-SCANNED (11/05/2019 3:21 PM CDT) Narrative Performed At This result has an attachment that is no t available. REPORT OF PROCEDURE - ENDOSCOPY URL (11/03/2019 9:26 AM CDT) Narrative Performed At This result has an attachment that is no t available. POC-Glucose meter (11/02/2019 8:56 AM CDT)Only the most recent of8 results within the time period is included. POC-Glucose Meter 115 (H)Comment: : 70 - 110 mg/dL QUINCY MAXWELL TESTED AT [facility] [address] [facility] [place], [address]: Fruit Pitter/Technici an ID = [id number] for [place] Specimen Blood Performing Organization Address City/State/Zipcode Phone Number QUINCY MAXWELL [facility] [address] [place], [place] [id number] [place] Hereditary Hemochromatosis DNA (11/02/2019 4:04 AM CDT) DNA Mutation see note [facility] Analysis Comment: INCORPORATED DNA MUTATION ANALYSIS RESULT: NEGATIVE INTERPRETATION: DNA testing indicates that this individual is negative for the C282Y and H63D mutation s in the HFE gene. This negative result significantly reduces the likelihood of hereditary hemochromatosis (HH) in this individual. However, it does not rule o ut the presence of other mutations within the HFE gene or a diagnosis of HH. The risk of this individual carrying a HFE mutation other than those tested in thi s assay depends greatly on family and clinical history a s well as ethnicity. This assay does not test for othe r primary or secondary iron overload disorders. Gold Vanegas, Ph.D., [facility] Director, Molecular Genetics Hereditary hemochromatosis (HH) is an autosomal recessive disorder of iron metabolism that results in iron overload and potential organ failure. It is one of the most common genetic disorders in individuals of - ancestry, with an estimated carrier frequency of 10%. HH is caused by mutations in the H FE gene. Most individuals with HH (60-90%) are homozygo us for the C282Y mutation. A smaller percentage of affected individuals are either compound heterozygous for the C282Y and H63D mutations (3%-8%), or homozygou s for the H63D mutation (approximately 1%). This assay detects the two mutations in the HFE gene, C282Y ([id number]: c.845G>A) and H63D ([id number]: c . 187C>G), that are commonly associated with HH. The mutations are detected by multiplex-polymerase chain reaction (PCR) amplification, followed by digestion of the amplification products with the restriction enzyme s Rsal and NlaIII, for the detection of the C282Y and H63D mutations respectively. Fluorescent-labeled restriction fragments are detected by capillary electrophoresis. This assay does not detect other mutations in the HFE gene that can cause HH. Since genetic variation and other factors can affect the accuracy of direct mutation testing, these results should be interpreted in light of clinical and familial data. For assistance with interpretation of these results, please contact your local [facility] genetic counselor or call [phone] ([phone]). This test was developed and its analytical performance characteristics have been determined by [employer], [place], [place]. It has not been cleared or approved by the FDA. This assay has been validated pursuant to the CLIA regulations and is used for clinical purposes. For more information on this test, go to http://education.LoftyVistas/faq/hemochromato s Specimen Blood Narrative Performed At Performing Lab [email or web address] INC[facility]ATED 15 [facility], [address] [place] [address] [place], [place] Jacoby Cui MD, PhD Performing Organization Address City/State/Zipcode [place] [address] INCORPORATED [address] [facility] CBC (Hemogram only) (11/02/2019 4:04 AM CDT)Only the most recent of2 results within the time period is included. Pathologist Sig nature WBC 5.2 3.5 - 10.5 K/L [facility] RBC 2.69 (L) 4.63 - 6.08 M/L [facility] Hemoglobin 9.5 (L) 13.7 - 17.5 GM/DL [facility] Hematocrit 28.9 (L) 40.1 - 51.0 % [facility] MCV 107.4 (H) 79.0 - 92.[address] [facility] MCH 35.3 (H) 25.7 - 32.[address] [facility] MCHC 32.9 32.3 - 36.5 GM/DL [facility] RDW 14.8 (H) 11.6 - 14.4 % [facility] Platelets 148 (L) 150 - 450 K/CU MM [facility] MPV 11.3 9.4 - 12.[address] [facility] nRBC 0 0 - 0 /[address] [facility] Specimen Blood Performing Organization Address City/[facility]/Zipcode Phone Number [address] [address] CENTER Phosphorus (11/02/2019 4:04 AM CDT)Only the most recent of2 resultswithin the time period is included. Pathologist Sig nature Phosphorus 2.9 2.3 - 4.7 mg/dL [facility] Specimen Blood Narrative Performed At Fruit Pitter ID - SANDRA W [facility] CENTER Performing Organization Address [facility] Mex[facility]opr Phone Number [address] [address] CENTER Magnesium (11/02/2019 4:04 AM CDT)Only the most recent of2 resultswithin the time period is included. Pathologist Sig nature Magnesium 1.8 1.6 - 2.6 mg/dL [facility] Specimen Blood Narrative Performed At Fruit Pitter ID - SANDRA W [facility] CENTER Performing Organization Address City/[facility] Mexicocode Phone Number [address] [address] CENTER Comprehensive metabolic panel (11/02/2019 4:04 AM CDT)Only the most recent of3 resultswithin the time period is included. Protein, Total 5.6 (L) 6.0 - 8.3 [facility] gm/dL [facility] Albumin 2.7 (L) 3.5 - 5.0 [facility] g/dL [facility] Alkaline 401 (H) 40 - 150 U/L [facility] Phosphatase [facility] Total Bilirubin 3.1 (H) 0.2 - 1.2 [facility] mg/dL [facility] Sodium 135 (L) 136 - 145 [facility] meq/L [facility] Potassium 4.8 3.5 - 5.1 [facility] meq/L [facility] Chloride 102 98 - 107 [facility] meq/L [facility] CO2 23 22 - 29 meq/L [facility] BUN 8 7 - 21 mg/dL [facility] Creatinine 0.84 0.57 - 1.25 [facility] mg/dL [facility] Glucose 118 (H) 70 - 105 [facility] mg/dL [facility] Calcium 8.0 (L) 8.4 - 10.2 [facility] mg/dL [facility] AST 147 (H) 5 - 34 U/L [facility] ALT 84 (H) 6 - 55 U/L [facility] EGFR 97Comment: mL/min/1.73 [facility] ESTIMATED GFR IS sq [facility] NOT ACCURATE MEDICAL CENTER CREATININE CLEARANCE IN PREDICTING GLOMERULAR FILTRATION RATE. ESTIMATED GFR IS NOT APPLICABLE FOR DIALYSIS PATIENTS. Specimen Blood Narrative Performed At Fruit Pitter ID - SANDRA Trudi [facility] Specimen slightly icteric Performing Organization Address City/State/Zipcode Phone Number [facility] [address] [place] [address] CENTER MD Endoscopic Retrograde Cholangiopancreatography (11/01/2019 10:30 AM CDT) Specimen Narrative Performed At FINAL REPORT GE RIS A fluoroscopic unit was utilized for a p rocedure performed in the operating room. No interpretation was re quested. Please refer to the operative report regarding findings. Ple ase refer to PACS for patient radiation dose information. Signed: Maxi Montiel MD Report Verified Date/Time: 11/01/2019 12:00:41 Reading Location: [facility] Reading Room Procedure Note Interface, External Ris In - 11/01/2019 12:02 PM CDT FINAL REPORT A fluoroscopic unit was utilized for a p rocedure performed in the operating room. No interpretation was re quested. Please refer to the operative report regarding findings. Ple ase refer to PACS for patient radiation dose information. Signed: Maxi Montiel MD Report Verified Date/Time: 11/01/2019 1 2:00:41 Reading Location: [facility] y Reading Room Performing Organization Address City/[facility] Mex[facility]ode Phone Number GE RIS Zinc (11/01/2019 4:01 AM CDT) Zinc 53 (L) 60 - 130 [facility] Comment: mcg/dL INCORPORATED This test was developed and its analytical performanc e characteristics have been determined by [facility]. It has not been cleared or approve d by the US Food and Drug Administration. This assay has been chhaya dated pursuant to the CLIA regulations and is used for clini sherwin purposes. Specimen Blood Narrative Performed At Performing Lab [facility] Active [facility], [address] [place] [phone] Lily Saravia MD, PhD Performing Organization Address [facility]opr Phone Number [place] [address] INCORPORATED [address] [facility] Mitochondrial Ab Titer (11/01/2019 3:57 AM CDT) Pathologist [facility] Mitochondrial Ab TNP <1:20 [facility] Titer Comment: INCORPORATED Test Not Performed. Screening test Negative or Not Det ected. Titer not performed. Specimen Blood Narrative Performed At Performing Lab [facility] EZ [facility] [place] [address] [place] [address] John Macias MD, PhD, MANOLO Performing Organization Address [facility] Mex[facility]ode Phone Number [place] [address] INCORPORATED [address] [employer] [facility] Mitochondrial Ab Screen (11/01/2019 3:57 AM CDT) Anti-Mitochond NEGATIVE NEGATIVE [facility] Abs Comment: INCORPORATED This test was developed and its analytical performance characteristics have been determined by [facility]. It has not been cleared or approved by FDA. This assay has been validated pursuant to the CLIA regulations and is used for clini sherwin purposes. Specimen Blood Narrative Performed At Performing Lab [facility] INCORPORATED E[facility] te [address] [place] [address] John Macias MD, PhD, MANOLO Performing Organization Address City/[facility] Mex[facility]ode Phone Number [place] [address] INCORPORATED [address] [facility] Hepatitis A antibody, IgG (11/01/2019 3:57 AM CDT) Pathologist Sig [facility] Hep A IgG Nonreactive Nonreactive [facility] Specimen Blood Narrative Performed At Fruit Pitter ID - [facility] Performing Organization Address [facility] Phone Number [address] [address] CENTER Anti-Mitochondrial Ab, reflex to titer (11/01/2019 3:57 AM CDT) Pathologist Sig nature Scan Result [facility] INCORPORATE D Specimen Blood Performing Organization Address [facility] Phone Number [place] [address] INCORPORATED [address] [facility] Vitamin B12 and Folate (11/01/2019 3:57 AM CDT) Pathologist Sig [facility] Vitamin B12 1,049 (H) 213 - 816 pg/mL [facility] Folate 14.30 >=7.00 ng/mL [facility] Specimen Blood Narrative Performed At Fruit Pitter ID - [facility] Performing Organization Address [facility] Phone Number [address] [address] CENTER Iron, TIBC, % sat. (without ferritin) (11/01/2019 3:57 AM CDT) Pathologist Sig nature Iron 158.0 40.0 - 160.0 [facility] ug/dL [facility] TIBC 158 (L) 250 - 450 ug/dL [facility] Iron % Saturation 100 (H) 20 - 55 % [facility] Specimen Blood Narrative Performed At Fruit Pitter ID - ELHAM L [facility] Performing Organization Address City/[facility]/Zipcode Phone Number [facility] [address] [place] [address] CENTER Actin (Smooth Muscle) Antibody, IgG (11/01/2019 3:57 AM CDT) Anti-Smooth <20 See Note: U [facility] Muscle Ab Comment: INCORPORATED Reference Range: <20 NEGATIVE > OR = 20 POSITIVE Antibodies recognizing actin are the main component of smooth muscle antibodies associated with autoimmune liver disease. Actin antibodies are found in approximately 75% of patients with autoimmune hepatitis (AIH) type 1, approximately 65% of patients with autoimmune cholangitis, approximately 30% of patients with primary biliary cirrhosis, and approximately 2% of healthy people. High values are closely correlated with AIH type 1. Specimen Blood Narrative Performed At Performing Lab [facility] INCORPORATED EZ [facility] te [address] [place] [address] John Macias MD, PhD, MANOLO Performing Organization Address City/[facility] Phone Number [place] [address] INCORPORATED [address] [facility] [id number] (11/01/2019 3:57 AM CDT) Pathologist Sig nature A-1 Antitrypsin 134.50 90.00 - 200.00 [facility] mg/dL [facility] Specimen Blood Narrative Performed At Fruit Pitter ID - ELHAM L [facility] Performing Organization Address City/State/Zipcode Phone Number [facility] [address] [place] [address] CENTER Ceruloplasmin (11/01/2019 3:57 AM CDT) Ceruloplasmin 17 (L) 18 - 36 mg/dL [facility] Comment: INCORPORATED Adults: Males: 18-36 mg/dL Females: 18-53 mg/dL Pediatrics: Males (mg/dL) Females (mg/dL) -------- ------- 0-30 Days 8-25 3-28 31 Days-11 Month 15-48 15-43 1-3 Years 25-56 2 9-54 4-6 Years 29-56 2 6-54 7-9 Years 25-52 2 3-48 10-12 Years 21-51 21 -48 13-15 Years 20-50 21 -46 16-18 Years 20-45 22 -50 The pediatric ranges are derived from the following criteria: Dory SJ, Narinder BASILIO, Yaneth J et al Pediatric referenc e ranges for Hsyi-[id number] and ceruloplasmin. Clin. Chem 1997; 43:S1999 Pediatric Reference Ranges, 2nd., [place] Dory,et al. editors. [employer], [place], [place] 1997. Specimen Blood Narrative Performed At Performing Lab [facility]ATED *SPL [facility], [address] [place] [address] Lily Saravia MD, PhD Performing Organization Address City/State/Zipcode Phone Number [place] [address] INCORPORATED [address] [facility] Hepatitis panel, acute (11/01/2019 3:57 AM CDT) Pathologist Sig nature Hep A IgM Nonreactive Nonreactive [facility] Hep B C IgM Nonreactive Nonreactive [facility] Hepatitis C Ab Nonreactive Nonreactive [facility] HBsAg Screen Nonreactive Nonreactive [facility] Specimen Blood Narrative Performed At Fruit Pitter ID - PIAYA L [facility] Performing Organization Address City/State/Zipcode Phone Number [facility] [address] [place] [address] CENTER Hepatitis B surface antibody (11/01/2019 3:57 AM CDT) Pathologist Sig nature Hep B S Ab <8.0 <8.0 mIU/mL [facility] Specimen Blood Narrative Performed At Fruit Pitter ID - ELHAM Ambrosio [facility] Performing Organization Address [facility] Phone Number [address] [address] CENTER Anti-Nuclear Antibody (GUNNAR) (11/01/2019 3:57 AM CDT) Pathologist Sig nature GUNNAR Negative Negative [facility] Specimen Blood Narrative Performed At Test performed by IFA method. [facility] Test performed by IFA method. Performing Organization Address [facility] Phone Number [address] [address] CENTER Immunoglobulin G (IgG) (11/01/2019 3:57 AM CDT) Pathologist Sig [facility] IgG 1,111 540-1,822 mg/dL [facility] Specimen Blood Narrative Performed At Fruit Pitter ID - ELHAM Ambrosio [facility] Performing Organization Address [facility] Phone Number [address] [address] CENTER Ferritin (11/01/2019 3:57 AM CDT) Pathologist Sig nature Ferritin 960.19 (H) 5.00 - 275.00 ng/mL [facility] Specimen Blood Narrative Performed At Fruit Pitter ID - ELHAM L [facility] Performing Organization Address [facility] Phone Number [address] [address] CENTER Bilirubin, direct (11/01/2019 3:57 AM CDT) Pathologist Sig nature Bilirubin, Direct 2.4 (H) 0.1 - 0.5 mg/dL [facility] Specimen Blood Narrative Performed At Fruit Pitter ID - PIAYA L [facility] ICAL [place] Performing Organization Address City/[facility]/Zipcode Phone Number [address] [address] CENTER Lipid panel (11/01/2019 3:57 AM CDT) Pathologist Sig nature Triglycerides 324 mg/dL [facility] DICAL [place] Cholesterol 454 mg/dL [facility] ICAL [place] HDL 26 mg/dL [facility] LDL Calculated 363 mg/dL [facility] [place] Specimen Blood Narrative Performed At Triglyceride Reference Range: [facility] Low Risk <150 Borderline 150-199 High Risk 200-499 Very High Risk >=500 Cholesterol Reference Range: Low Risk <200 Borderline 200-239 High Risk >240 HDL Cholesterol Reference Range: Low Risk >=60 High Risk <40 LDL Cholesterol Reference Range: Optimal <100 Near Optimal 100-129 Borderline 130-159 High 160-189 Very High >=190 [facility] ID - PIAYA L Fruit [facility] ID - PIAYA L Specimen slightly icteric Performing Organization Address City/[facility]/Zipcode Phone Number [address] [address] CENTER ABORH, manual (10/31/2019 10:46 AM CDT) Pathologist Sig nature ABO Grouping O [facility] DICAL [place] Rh Factor POS [facility] Specimen Blood Performing Organization Address City/[facility]/Zipcode Phone Number [address] [address] MR abdomen without IV contrast MRCP (10/31/2019 8:57 AM CDT) Specimen Narrative Performed At FINAL REPORT GE [facility] TECHNIQUE: MRI of the abdomen and MRCP W ITHOUT intravenous contrast. 3-D volume reconstructions were obtained to evaluate the biliary ductal system. INDICATION: Outside imaging with gallsto jaqui, no comment on CBD size with elevated LFTs. Eval for choledoch. COMPARISON: None. FINDINGS: ABSENCE OF INTRAVENOUS CONTRAST DECREASE S SENSITIVITY FOR DETECTION OF FOCAL LESIONS AND VASCULAR PATHOLOGY. LOWER THORAX: Unremarkable. LIVER: Diffuse loss of signal in the moses er on out of phase imaging. No focal hepatic lesions. BILIARY: A few tiny stones layering the gallbladder. The gallbladder is distended but without wall thickening . No biliary ductal dilatation or filling defect. The common bile duct measures 0.5 cm in diameter. There is a questionable fillin g defect in the distal common bile duct seen only on the MRCP images w hich measures 0.2 cm on image 38 SPLEEN: No splenomegaly. PANCREAS: No focal masses or ductal dila tation. ADRENALS: No adrenal nodules. KIDNEYS/URETERS: No hydronephrosis or so lid mass lesions. Simple renal cysts measure 3.7 cm in the left u pper pole and 0.6 cm in the left lower pole. No routine follow-up im aging is recommended. PERITONEUM/RETROPERITONEUM: No free flui d. LYMPH NODES: No lymphadenopathy. VESSELS: Unremarkable. GI TRACT: No distention or wall thickeni ng. BONES AND SOFT TISSUES: Grade 1 anteroli sthesis of L5 on S1. IMPRESSION: 1.There is a questionable filling defect in the distal common bile duct which measures 0.2 cm. 2.Cholelithiasis with gallbladder disten tion but no gallbladder wall thickening or significant pericholecysti c inflammation. 3.Diffuse fatty infiltration of the live r. Signed: Jorge Gaines MD Report Verified Date/Time: 10/31/2019 09:36:55 Reading Location: [facility] Reading Room - [place] [id number] Procedure Note Interface, External Ris In - 10/31/2019 9:39 AM CDT FINAL REPORT TECHNIQUE: MRI of the abdomen and MRCP W ITHOUT intravenous contrast. 3-D volume reconstructions were obtained to evaluate the biliary ductal system. INDICATION: Outside imaging with gallsto jaqui, no comment on CBD size with elevated LFTs. Eval for choledoch. COMPARISON: None. FINDINGS: ABSENCE OF INTRAVENOUS CONTRAST DECREASE S SENSITIVITY FOR DETECTION OF FOCAL LESIONS AND VASCULAR PATHOLOGY. LOWER THORAX: Unremarkable. LIVER: Diffuse loss of signal in the moses er on out of phase imaging. No focal hepatic lesions. BILIARY: A few tiny stones layering the gallbladder. The gallbladder is distended but without wall thickening . No biliary ductal dilatation or filling defect. The common bile duct measures 0.5 cm in diameter. There is a questionable fillin g defect in the distal common bile duct seen only on the MRCP images w hich measures 0.2 cm on image 38 SPLEEN: No splenomegaly. PANCREAS: No focal masses or ductal dila tation. ADRENALS: No adrenal nodules. KIDNEYS/URETERS: No hydronephrosis or so lid mass lesions. Simple renal cysts measure 3.7 cm in the left u pper pole and 0.6 cm in the left lower pole. No routine follow-up im aging is recommended. PERITONEUM/RETROPERITONEUM: No free flui d. LYMPH NODES: No lymphadenopathy. VESSELS: Unremarkable. GI TRACT: No distention or wall thickeni ng. BONES AND SOFT TISSUES: Grade 1 anteroli sthesis of L5 on S1. IMPRESSION: 1.There is a questionable filling defect in the distal common bile duct which measures 0.2 cm. 2.Cholelithiasis with gallbladder disten tion but no gallbladder wall thickening or significant pericholecysti c inflammation. 3.Diffuse fatty infiltration of the live r. Signed: Jorge Gaines MD Report Verified Date/Time: 10/31/2019 0 9:36:55 Reading Location: [facility] Reading Room - [place] [id number] Performing Organization Address City/State/Zipcode Phone Number GE [facility]IS CBC with platelet count + automated diff (10/31/2019 2:53 AM CDT) Pathologist Sig nature WBC 4.4 3.5 - 10.5 [facility] K/L [facility] RBC 2.82 (L) 4.63 - 6.08 [facility] M/L [facility] Hemoglobin 9.9 (L) 13.7 - 17.5 [facility] GM/DL [facility] Hematocrit 29.0 (L) 40.1 - 51.0 % [facility] MCV 102.8 (H) 79.0 - 92.[address] [facility] MCH 35.1 (H) 25.7 - 32.[address] [facility] MCHC 34.1 32.3 - 36.5 [facility] GM/DL [facility] RDW 15.6 (H) 11.6 - 14.4 % [facility] Platelets 155 150 - 450 K/CU [facility] MM [facility] MPV 10.8 9.4 - 12.[address] [facility] nRBC 0 0 - 0 /[address] [facility] % Neutros 51 % [facility] % Lymphs 35 % [facility] % Monos 11 % [facility] % Eos 3 % [facility] % Baso 1 % [facility] # Neutros 2.27 1.78 - 5.38 [facility] # Lymphs 1.53 1.32 - 3.57 [facility] # Monos 0.48 0.30 - 0.82 [facility] # Eos 0.11 0.04 - 0.54 [facility] # Baso 0.04 0.01 - 0.08 [facility] Immature 0 0 - 1 % [facility] Granulocytes-Relativ [facility] Specimen Blood Performing Organization Address City/State/Zipcode Phone Number [address] [address] CENTER aPTT (10/31/2019 2:52 AM CDT) Pathologist Sig nature PTT 32.1 22.5 - 36.[address] [facility] Specimen Blood Performing Organization Address City/[facility]/Zipcode Phone Number [place] [phone] [place] [address] CENTER Ammonia (10/31/2019 2:52 AM CDT) Pathologist Sig nature Ammonia 50 18 - 72 mol/L [facility] Specimen Blood Narrative Performed At [employer] [facility] Performing Organization Address City/State/Zipcode Phone Number [facility] [address] [place] [address] CENTER after 07/18/2019 Insurance Payer Benefit Plan Subscriber ID Effective Dates Phone Address Type / Group BLUE [employer] HMO [id number] 2019-Presen [phone] [address] H[address]/POS CROSS/BLUE BLUE[address] t [id number] [place] [address] Advance Directives For more information, please contact: [phone] Code Status Date Activated Date Inactivated Comments Full Code 12/25/2019 5:37 AM 12/25/2019 2:33 PM This code status was determined by: Patient Full Code 10/30/2019 11:57 PM 11/02/2019 12:44 PM This code status was determined by: Patient
--- OUTSIDE RECORDS SUMMARY | 2020-07-18 17:59 | XMS REPORT ---
:1970 Author Organization [facility] Address [address] [place], [place] [place] [address] Care Team Providers Name Role Phone Segovia Unavailable [phone] PROBLEMS Type Condition ICD9-CM [id number] Onset Condition SNOMED Code Notes Code Code Dates Status Problem Morbid (severe) E66.01 Active 96681458939153 obesity due to excess calories Problem Mixed E78.2 Active 763121026 hyperlipidemia Problem Panic disorder F41.0 Active 035118343 [episodic paroxysmal anxiety] Problem Alcohol abuse F10.10 Active 65564043 Problem Generalized F41.1 Active 73292427 anxiety disorder Problem HTN, goal below I10 Active 35074441 140/90 Problem Insomnia, G47.00 Active 182328340 unspecified type Problem Dependence on Z99.89 Active 599589253 other enabling machines and devices Problem Type 2 diabetes E11.65 Active 14548118 mellitus with hyperglycemia, without long-term current use of insulin Problem Current moderate F32.1 Active 03114091 episode of major depressive disorder without prior episode Problem Asymptomatic K80.20 Active 83929672 gallstones Problem Body mass index Z68.41 Active 328569058 (BMI) 40.0-44.9, adult Problem Obstructive sleep G47.33 Active 76960032 apnea (adult) (pediatric) Problem Calculus of K80.20 Active 43319235 gallbladder without cholecystitis without obstruction Problem Alcoholic fatty K70.0 Active 80460234 liver Problem Hypocalcemia E83.51 Active 2833298 ALLERGIES Allergen (clinical drug Drug/Non Drug Allergy Reaction Allergy Type Onset Date Status ingredient) documented on EMR penicillin Unknown Drug Allergy Active ENCOUNTERS from 1970 to 2020-06-09 Encounter Location Date Provider Diagnosis [address] [place] May, Leonardo Luca Typ e 2 diabetes Family [facility] [address] [place] [address] hyperglycemia, without long-term curre nt use of insulin E11. 65 ; Current moderat e episode of swapnil r depressive diso rder without prior e pisode F32.1 ; Alcohol abuse F10.10 ; Panic disorder [episo dic paroxysmal anxi ety] F41.0 ; General ized anxiety disorde r F41.1 ; Insomnia, unspecified typ e G47.00 ; Alcoho lic fatty liver K70 .0 ; HTN, goal below 140/90 I10 ; Mixed hyperlipidemia E78.2 ; History of rece nt change in lifes tyle Z78.9 ; Elevate d LFTs R94.5 ; Anemia, unspecified typ e D64.9 ; Polyp of colo n, unspecified par t of colon, unspecif ied type K63.5 ; Mo rbid (severe) obesit y due to excess calor ies E66.01 ; Hyperk alemia E87.5 ; Depende nce on other enabling machines and de vices Z99.89 ; Obstru ctive sleep apnea (ad ult) (pediatric) G47 .33 ; Cyst of left ki dney N28.1 ; Non-rec urrent bilateral ingui nal hernia without obstruction or gangrene K40.20 ; Calculus of gallbladder wit hout cholecystitis w ithout obstruction K80 .20 ; Body mass index (BMI) 40.0-44.9, adul t Z68.41 ; Left hydrocele N43.3 ; Family history of colon cancer in father Z80.0 ; Hemorrh oids, unspecified hem orrhoid type K64.9 ; Hypocalcemia E8 3.51 and Alcohol abu se counseling and surveillance Z7 1.41 IMMUNIZATIONS Vaccine Route Administration Date Status Adacel (Tdap) IM Intramuscular Aug 06, 2019 Administered SOCIAL HISTORY Tobacco Use: Social History Observation Description Date Details (start date - stop date) Never Smoker Sex Assigned At : Social History Observation Description Sex Assigned At Unknown PHQ9 Question Answer Notes Little interest or pleasure in doing things Several days Feeling down, depressed, or hopeless More than half the days Trouble falling or staying asleep or sleeping too much More than half the days Feeling tired or having little energy Several days Poor appetite or overeating Several days Feeling bad about yourself, or that you are a failure, More than half the days or have let yourself or your family down Trouble concentrating on things, such as reading the More th an half the days newspaper or watching television Moving or speaking so slowly that other people could Not at all have noticed; or the opposite, being so fidgety or restless that you have been moving around a lot more than usual Total Score 11 Interpretation Moderate Depression Thoughts that you would be better off or of Not at all hurting yourself in some way Alcohol Screen Question Answer Notes Did you have a drink containing alcohol in Yes the past year? Points 8 Interpretation Positive How often did you have 6 or more drinks on Weekly (3 points) one occasion in the past year? How many drinks did you have on a typical 3 or 4 (1 point) day when you were drinking in the past year? How often did you have a drink containing Four or more times a week (4 points) alcohol in the past year? Tobacco Use/Smoking Question Answer Notes Are you a never smoker REASON FOR REFERRAL No Information VITAL SIGNS Height 71 in May, Weight 305 lbs May, BMI 42.53 kg/m2 May, MEDICATIONS Medication SIG (Take, Route, Notes Start Date End Date Status Frequency, Duration) Trazodone HCl 100 MG 1 tablet at bedtime Active Orally Once a day for 30 Vitamin B-1 100 MG 1 tablet Orally Once Active a day Celexa 40 MG 1 tablet Orally Once Ac tive a day for 30 days Fenofibrate 54 MG 1 tablet with food Active Orally Once a day for 90 Alprazolam 0.5 MG 1 tablet Orally PRN Active Aspir-Low 81 MG 1 tablet Orally Once Active a day Carvedilol 25 MG 1 tablet Orally Twice Active a day for 90 days Atorvastatin Calcium 10 MG 1 tablet Orally Once Active a day for 90 days Trazodone HCl 100 MG 1 tablet at bedtime Active Orally Once a day for 30 days Atorvastatin Calcium 10 MG 1 tablet Orally Once Active a day for 90 Lisinopril 40 MG 1 tablet Orally Once Active a day for 90 days Zinc Sulfate 220 (50 Zn) MG 1 capsule Orally Once Active a day Chlordiazepoxide HCl 25 MG (Schedule IV Drug) Not-Taking PLEASE SEE ATTACHED FOR DETAILED DIRECTIONS Oral for 3 Mens Multivitamin - as directed Orally Active Carvedilol 25 MG TAKE 1& 1/2 TABLERS Active BY MOUTH TWICE A DAY MAKE APPT FOR REFILLS for 90 Fenofibrate 54 MG 1 tablet with food Active Orally Once a day for 90 days Lisinopril 40 MG 1 tablet Orally Once Active a day for 90 Citalopram Hydrobromide 40 TAKE 1 TABLET BY Active MG MOUTH EVERY DAY for 90 PROCEDURES No Information RESULTS No Results REASON FOR VISIT 2 mth lab f/u MEDICAL (GENERAL) HISTORY Type Description Date Medical History Current moderate episode of major depres sive disorder without prior episode Medical History Generalized anxiety disorder Medical History Panic disorder [episodic paroxysmal anxi ety] Medical History Insomnia, unspecified type Medical History HTN, goal below 140/90 Medical History Mixed hyperlipidemia Medical History Alcohol abuse Medical History Morbid (severe) obesity due to excess ca lories Medical History Body mass index (BMI) 40.0-44.9, adult Surgical History Hemorroids 2004 Surgical History Status post lap cholecystectomy due to s ymptomatic 12/[address] [facility] December 24 Goals Section No Information Health Concerns No Information MEDICAL EQUIPMENT No Information MENTAL STATUS No Information FUNCTIONAL STATUS No Information ASSESSMENTS Encounter Date Diagnosis Assessment Notes Treatment Notes Treatm ent Clinical Notes May, Type 2 diabetes Likely due to mellitus with increased alcohol hyperglycemia, intake. Encouraged without long-term to make dietary and current use of lifestyle changes. insulin (ICD-10 - Will repeat., E11.65) Diabetes Education Diabetes is a disorder that disrupts the way your body uses glucose (sugar). It is a chronic medication condition that requires regular monitoring and treatment throughout your life. Treatment includes: lifestyle modification, self-care measures, and medication. Fortunately, these treatments can keep the blood sugar levels close to normal and minimize the risk of developing complications. The primary blood test to measure the progress of diabetes is the Hemoglobin A1c. Normal levels is less than 7.0 but less than 6.5 is considered excellent control. Fasting blood sugars should be in the range of 80-120 while random blood sugars should range below 200 especially after meals. Carbohydrate (sugar) intake for diabetics should be below 45 grams per meal and 15 grams per snack. Diabetic preventive care is vital to prevent complications, so it is important to have yearly diabetic eye and foot exams with specialists. If your diabetes is not controlled, then contact your doctor to further address.Medication may need to be adjusted and/or added. May, Current moderate Actively listented. Bein bria more episode of major Support given. involved with depressive disorder Discussed treatment f amily and without prior options. Medication son. episode (ICD-10 - + Coaching. F32.1) Counseling/Therapy. Walking. Infomation provided for psychologist for therapy options, encouraged to call to make an appt. INCREASED CELEXA 40 mg. Instructions and side effects discussed. -- Depression Education: Depression is a brain disease that makes you sad, but it is different than normal sadness. Depressed people feel down most of the time for at least 2 weeks. They also have at least one of these 2 symptoms: 1. They no longer enjoy or care about doing the things they used to like to do. 2. They feel sad, down, hopeless, or cranky most of the day, almost every day. It can also make you: lose or gain weight; sleep too much or too little; fell tired or like you have no energy; feel guilty or like you are worth nothing; forget things or feel confused; and think about or suicide. Medication and/or seeing a counselor (such as a psychiatrist, psychologist, nurse or social science research assistant) may be necessary to treat depression. Both treatments take time to work. If you ever feel like you might hurt yourself or some else, then call your doctor or call 911 or go to the ER. May, Alcohol abuse Discussed COMMENDED ON (ICD-10 - F10.10) extensively CESSATION. regarding support and resources available. Encouraged to attend AA. Gradual cessation discussed. Drinking 1.5 yeti amount---> last alcoholic drink 11/02/2019. RELASPED. Last drink 02/27/2020 21-day prior to lab draw. Patient reports of increased stress due to pandemic. Verbalized understanding of needing to quit. May, Panic disorder On Xanax as needed. Rarely using. [episodic paroxysmal Reports of using 2 N o red flags. anxiety] (ICD-10 - tablets/week maximum E ducation F41.0) as needed for severe given. anxiety and panic attacks. Side effect discussed extensively. No refills needed at this time. Education given. May, Generalized anxiety Education given. disorder (ICD-10 - Increased Celexa. , F41.1) -- Anxiety Education: Anxiety is a feeling of anxiousness or nervousness. Being extremely anxious or worried on most days for 6 months or longer is not normal. This is a type of anxiety disorder. This disorder can make it hard to do everyday tasks. Other types of anxiety include: post traumatic stress disorder, panic disorder, and phobias. Symptoms of anxiety may include: feeling worried or on the edge, trouble sleeping, or forgetting things. Feelings of stomach aches or chest tightness is another common symptom. Medicine, exercise, and other treatments like counseling, talk therapy, yoga, and massages maybe necessary to treat this disorder. May, Insomnia, Discussed good sleep Will di scuss unspecified type hygiene with patient of changing to (ICD-10 - G47.00) education given. trazod one at Stable on trazodone. f/u. Di scussed Discussed side good sleep effect panel. hygiene. Education given. May, Alcoholic fatty Relapse on alcohol. liver (ICD-10 - Strongly encouraged K70.0) on cessation. Worsening LFTs.. Will monitor closely. Education given. Begin dietary and lifestyle changes. May, HTN, goal below Stable on current 140/90 (ICD-10 - regimen. Consider I10) reducing dosage. Education given. , DASH Diet discussed. Instructed to measure BP at home and bring in log to f/u appt. Instructions and logs given. Education given. , HTN Education This is a condition that puts at risk for heart attack, stroke, and kidney disease. Lifestyle modification, low fat/low salt diet, exercise, low alcohol intake and medication is utilized to help control your BP. Untreated HTN increases the strain on the heart and arteries, eventually causing organ damage.Normal BP is less than 140/90. High BP is greater than 140/90. If your BP is not controlled, call your doctor. Medication may need to be adjusted and/or added. Compliance with medication is vital. If you have chest pain, shortness of breath, severe nausea/vomiting, fatigue, and other symptoms, you will need to contact your doctor or go to the ER immediately to address. May, Mixed hyperlipidemia Stable. Tolerating (ICD-10 - E78.2) it well. Educatioin given. , Hyperlipidemia Education: Hyperlipidemia refers to increased levels of lipids(fats) in the blood, including cholesterol and triglycerides. This can significantly increase your risk of developing coronary artery disease and peripheral artery disease. This can cause chest pain, heart attack, stroke, and fatigue. Treatment is recommended to decrease your risk. Treatment includes: lifestyle modification, low salt/low fat diet, exercise, tobacco cessation, low alcohol intake and sometimes medication. Blood tests (TC,TG, HDL, LDL) are utilized to determine treatment regimens. TC(Total cholesterol) should be below 200. TG(Total Triglycerides) should be below 150. HDL(Good cholesterol) should be above 40. LDL(Bad Cholesterol) should be below 130(if you have one risk factor) or less than 100( if you have more than one risk factor or have DM/CAD/PVD). Compliance with medication and treatment is vital. If you have questions, talk to your doctor. May, History of recent In process of making change in lifestyle job change, (ICD-10 - Z78.9) overwhelmed with current situation. Denies any SI or HI. Good family and friend support. May, Elevated LFTs . Asymptomatic. (ICD-10 - R94.5) Discussed differential diagnosis patient. Education given. encouraged on alcohol cessation. Will monitor. May, Anemia, unspecified . Asymptomatic. type (ICD-10 - Discussed D64.9) differential diagnosis with patient. Education given. Will repeat May, Polyp of colon, . Managed by Dr. dawson part of Christopher colon, unspecified type (ICD-10 - K63.5) May, Morbid (severe) Counseling given. obesity due to Education given. excess calories Utilized the 5-A''s (ICD-10 - E66.01) approach to increase patient motivation and behavioral change. ASK: Patient expressed desire/readiness to change and premission was obtained to discuss. ASSESS: BMI class discussed. In addition, patient''s barrier to weight loss and identified drivers and complications. ADVISE: Discussed benefits of modest weight loss and long-term strategy as well. Educated on risks and complications of obesity on health. Treatment options were discussed including but not limited to non-surgical (medications, gym, diet/exercise) and surgical options. AGREE: Realistic weight-loss goal discussed. Behavioral goals done. Patient agreed with treatment plan. ASSIST: Provided education and resources. Plan made to address drivers and barriers. Close follow-up arranged. START: Walking daily, reducing soda and increased hydration with water of at least 64 ounces. May, Hyperkalemia (ICD-10 . Asymptomatic. - E87.5) Concern for medication versus dietary. Encourage patient to make dietary changes. May, Dependence on other enabling machines and devices (ICD-10 - Z99.89) May, Obstructive sleep Sleep Study done >12 apnea (adult) years ago. Wanting (pediatric) (ICD-10 to recheck. - G47.33) Compliant with CPAP unsure if it's working. Ordered with Nick for home sleep study. May, Cyst of left kidney . Discussed (ICD-10 - N28.1) differential diagnosis with patient. Education given. Refer to nephrology for further evaluation management May, Non-recurrent . Asymptomatic at bilateral inguinal this time. Will hernia without monitor obstruction or gangrene (ICD-10 - K40.20) May, Calculus of . Plan for lap gallbladder without cholecystectomy. We cholecystitis will follow-up. without obstruction (ICD-10 - K80.20) May, Body mass index (BMI) 40.0-44.9, adult (ICD-10 - Z68.41) May, Left hydrocele . Asymptomatic at (ICD-10 - N43.3) this time. If if symptomatic or worsening will refer to urology. May, Family history of colon cancer in father (ICD-10 - Z80.0) May, Hemorrhoids, . Discussed unspecified supportive measures hemorrhoid type for symptomatic (ICD-10 - K64.9) relief. Education given. Concern for reason for anemia. Will monitor closely May, Hypocalcemia (ICD-10 . Discussed - E83.51) differential diagnosis with patient. Education given. Likely due to alcohol intake. Will repeat. Asymptomatic at this time. May, Alcohol abuse . Extensive counseling and counseling given. surveillance (ICD-10 Education given. - Z71.41) Patient wanting to change May, Other -- Medication reviewed and updated. -- Dietary and Lifestyle modifications addressed regarding diet, exercise and weight managemen t. -- Treatment options, risks and benefits, side effects reviewed in detail. -- Advised on signs/symptoms to monitor and when to call clinic and/or visit the nearest ER. Patient verbalized understanding and agreeable with plan. PLAN OF TREATMENT Medication Medication Name Sig Start Date Stop Date Trazodone HCl 100 MG 1 tablet at bedtime Orally Once a day for 30 days Fenofibrate 54 MG 1 tablet with food Orally Once a day for 90 days Atorvastatin Calcium 10 MG 1 tablet Orally Once a day for 90 days Carvedilol 25 MG 1 tablet Orally Twice a day for 90 days Alprazolam 0.5 MG 1 tablet Orally PRN Lisinopril 40 MG 1 tablet Orally Once a day for 90 days Celexa 40 MG 1 tablet Orally Once a day for 30 days Treatment Notes Assessment Notes Clinical Notes Morbid (severe) obesity due to Counseling given. Education excess calories given. Utilized the 5-A''s approach to increase patient motivation and behavioral change. ASK: Patient expressed desire/readiness to change and premission was obtained to discuss. ASSESS: BMI class discussed. In addition, patient''s barrier to weight loss and identified drivers and complications. ADVISE: Discussed benefits of modest weight loss and long-term strategy as well. Educated on risks and complications of obesity on health. Treatment options were discussed including but not limited to non-surgical (medications, gym, diet/exercise) and surgical options. AGREE: Realistic weight-loss goal discussed. Behavioral goals done. Patient agreed with treatment plan. ASSIST: Provided education and resources. Plan made to address drivers and barriers. Close follow-up arranged. START: Walking daily, reducing soda and increased hydration with water of at least 64 ounces. Type 2 diabetes mellitus with Likely due to increased hyperglycemia, without alcohol intake. Encouraged to long-term current use of make dietary and lifestyle insulin changes. Will repeat., Diabetes Education Diabetes is a disorder that disrupts the way your body uses glucose (sugar). It is a chronic medication condition that requires regular monitoring and treatment throughout your life. Treatment includes: lifestyle modification, self-care measures, and medication. Fortunately, these treatments can keep the blood sugar levels close to normal and minimize the risk of developing complications. The primary blood test to measure the progress of diabetes is the Hemoglobin A1c. Normal levels is less than 7.0 but less than 6.5 is considered excellent control. Fasting blood sugars should be in the range of 80-120 while random blood sugars should range below 200 especially after meals. Carbohydrate (sugar) intake for diabetics should be below 45 grams per meal and 15 grams per snack. Diabetic preventive care is vital to prevent complications, so it is important to have yearly diabetic eye and foot exams with specialists. If your diabetes is not controlled, then contact your doctor to further address.Medication may need to be adjusted and/or added. Polyp of colon, unspecified . Managed by Dr. White part of colon, unspecified type Current moderate episode of Actively listented. Support Napoleon fraser more involved with major depressive disorder given. Discussed treatment family and son. without prior episode options. Medication + Coaching. Marco echeverria. Counseling/Therapy. Infomation provided for psychologist for therapy options, encouraged to call to make an appt. INCREASED CELEXA 40 mg. Instructions and side effects discussed. -- Depression Education: Depression is a brain disease that makes you sad, but it is different than normal sadness. Depressed people feel down most of the time for at least 2 weeks. They also have at least one of these 2 symptoms: 1. They no longer enjoy or care about doing the things they used to like to do. 2. They feel sad, down, hopeless, or cranky most of the day, almost every day. It can also make you: lose or gain weight; sleep too much or too little; fell tired or like you have no energy; feel guilty or like you are worth nothing; forget things or feel confused; and think about or suicide. Medication and/or seeing a counselor (such as a psychiatrist, psychologist, nurse or social science research assistant) may be necessary to treat depression. Both treatments take time to work. If you ever feel like you might hurt yourself or some else, then call your doctor or call 911 or go to the ER. Obstructive sleep apnea Sleep Study done >12 years (adult) (pediatric) ago. Wanting to recheck. Compliant with CPAP unsure if it's working. Ordered with Nick for home sleep study. Alcohol abuse Discussed extensively COMMENDED ON CESSA TION. regarding support and resources available. Encouraged to attend AA. Gradual cessation discussed. Drinking 1.5 yeti amount---> last alcoholic drink 11/02/2019. RELASPED. Last drink 02/27/2020 21-day prior to lab draw. Patient reports of increased stress due to pandemic. Verbalized understanding of needing to quit. Hyperkalemia . Asymptomatic. Concern for medication versus dietary. Encourage patient to make dietary changes. Panic disorder [episodic On Xanax as needed. Reports Rarely using. No red paroxysmal anxiety] of using 2 tablets/week flags. Education given. maximum as needed for severe anxiety and panic attacks. Side effect discussed extensively. No refills needed at this time. Education given. Non-recurrent bilateral . Asymptomatic at this time. inguinal hernia without Will monitor obstruction or gangrene Generalized anxiety disorder Education given. Increased Celexa. , -- Anxiety Education: Anxiety is a feeling of anxiousness or nervousness. Being extremely anxious or worried on most days for 6 months or longer is not normal. This is a type of anxiety disorder. This disorder can make it hard to do everyday tasks. Other types of anxiety include: post traumatic stress disorder, panic disorder, and phobias. Symptoms of anxiety may include: feeling worried or on the edge, trouble sleeping, or forgetting things. Feelings of stomach aches or chest tightness is another common symptom. Medicine, exercise, and other treatments like counseling, talk therapy, yoga, and massages maybe necessary to treat this disorder. Cyst of left kidney . Discussed differential diagnosis with patient. Education given. Refer to nephrology for further evaluation management Insomnia, unspecified type Discussed good sleep hygiene Will discuss of changing with patient education given. to trazodo ne at f/u. Stable on trazodone. Discussed good slee p Discussed side effect panel. hygiene. Ed ucation given. Left hydrocele . Asymptomatic at this time. If if symptomatic or worsening will refer to urology. Alcoholic fatty liver Relapse on alcohol. Strongly encouraged on cessation. Worsening LFTs.. Will monitor closely. Education given. Begin dietary and lifestyle changes. Calculus of gallbladder . Plan for lap without cholecystitis without cholecystectomy. We will obstruction follow-up. Hemorrhoids, unspecified . Discussed supportive hemorrhoid type measures for symptomatic relief. Education given. Concern for reason for anemia. Will monitor closely Anemia, unspecified type . Asymptomatic. Discussed differential diagnosis with patient. Education given. Will repeat Alcohol abuse counseling and . Extensive counseling given. surveillance Education given. Patient wanting to change Elevated LFTs . Asymptomatic. Discussed differential diagnosis patient. Education given. encouraged on alcohol cessation. Will monitor. Hypocalcemia . Discussed differential diagnosis with patient. Education given. Likely due to alcohol intake. Will repeat. Asymptomatic at this time. HTN, goal below 140/90 Stable on current regimen. Consider reducing dosage. Education given. , DASH Diet discussed. Instructed to measure BP at home and bring in log to f/u appt. Instructions and logs given. Education given. , HTN Education This is a condition that puts at risk for heart attack, stroke, and kidney disease. Lifestyle modification, low fat/low salt diet, exercise, low alcohol intake and medication is utilized to help control your BP. Untreated HTN increases the strain on the heart and arteries, eventually causing organ damage.Normal BP is less than 140/90. High BP is greater than 140/90. If your BP is not controlled, call your doctor. Medication may need to be adjusted and/or added. Compliance with medication is vital. If you have chest pain, shortness of breath, severe nausea/vomiting, fatigue, and other symptoms, you will need to contact your doctor or go to the ER immediately to address. Mixed hyperlipidemia Stable. Tolerating it well. Educatioin given. , Hyperlipidemia Education: Hyperlipidemia refers to increased levels of lipids(fats) in the blood, including cholesterol and triglycerides. This can significantly increase your risk of developing coronary artery disease and peripheral artery disease. This can cause chest pain, heart attack, stroke, and fatigue. Treatment is recommended to decrease your risk. Treatment includes: lifestyle modification, low salt/low fat diet, exercise, tobacco cessation, low alcohol intake and sometimes medication. Blood tests (TC,TG, HDL, LDL) are utilized to determine treatment regimens. TC(Total cholesterol) should be below 200. TG(Total Triglycerides) should be below 150. HDL(Good cholesterol) should be above 40. LDL(Bad Cholesterol) should be below 130(if you have one risk factor) or less than 100( if you have more than one risk factor or have DM/CAD/PVD). Compliance with medication and treatment is vital. If you have questions, talk to your doctor. History of recent change in In process of making job lifestyle change, overwhelmed with current situation. Denies any SI or HI. Good family and friend support. Treatment Notes Test Name Order Date Lipid Panel With LDL/HDL Ratio 2020-06-09 Ferritin, Serum 2020-06-09 Microalbumin/Creat Ratio, Random Ur 2020-06-09 Hematopath Consultation, Smear 2020-06-09 Hemoglobin A1c 2020-06-09 Comp. Metabolic Panel (14) (CMP) 2020-06-09 CBC With Differential/Platelet 2020-06-09 Next Appt Details 3 month Wellness + Labs 1 week before Re ason: Insurance Providers Payer Name Payer Payer Insured Name Patient Coverage Covera ge End Address Phone Relationship to Start Date Wayne e Insured [employer] [phone] Alexis,Ph self 2017 and Blue [id number] [facility] [id number]
--- OUTSIDE RECORDS SUMMARY | 2020-07-18 17:59 | XMS REPORT | Continuity of Care Document ---
:1970 Author Organization [facility] t Address [address] [place] [address] Care Team Providers Name Role Phone Jamshid Segovia DO Primary Care Physician Jake Madrigal MD Attending Clinician Lilli Mclaughlin Attending Clinician Melvin AKERS Attending Clinician Unavailable Sarah Boogie PA-C Attending Clinician Jelena ARSHAD Attending Clinician Unavailable Jelena Arshad MD Attending Clinician Mary Riley MD Attending Clinician Carlos SINGLETARY Attending Clinician Unavailable Yokasta Morton MD Attending Clinician ISAAK SEGOVIA Attending Clinician Unavailable Isaak Segovia MD Attending Clinician Leatha Crespo MD Attending Clinician Stephanie Marinelli MD Attending Clinician Tere CONNORS Attending Clinician Adal Segovia MD Attending Clinician Rayna Vergara MD Attending Clinician Trenton Lockett CRNA Attending Clinician Luzmaria Yousif MD Attending Clinician Jelena ARSHAD Admitting Clinician Unavailable SAMMY MARINELLIOMA Admitting Clinician Unavailable Payers Payer Name Policy Type Policy Effective Date Expiration Date Sour ce Number BLUE CROSS/BLUE [id number] [address] [facility] SHIELDBS O 00:00:00 - Medical BLUE/ESSENTIALSxx [place] [id number] [place] [id number]/POS Problems Condition Condition Condition Status Onset Resolution Last Treating Co mments Source Name Details Category Date Date Treatment Clinician Date Symptomati Symptomati Disease Active [facility] 12-24 [facility] - cholelithi cholelithi 00:00: Me dical asis asis 00 [place] Essential Essential Disease Active [facility] hypertensi hypertensi 10-31 Yael kes - on on 00:00: Medical 00 [place] Mixed Mixed Disease Active [facility] hyperlipid hyperlipid 10-31 Yael kes - emia emia 00:00: Medical 00 [place] Coronary Coronary Disease Active [facility] artery artery 10-31 [facility] - disease disease 00:00: Medical involving involving 00 [facility] [place] coronary coronary artery of artery of [place] heart heart without without angina angina pectoris pectoris Alcohol Alcohol Disease Active [facility] use use 10-30 [facility] - 00:00: Medical 00 [place] Elevated Elevated Disease Active [facility] LFTs LFTs 10-30 [facility] - 00:00: Medical 00 [place] Cholelithi Cholelithi Disease Active [address] asis asis 10-29 [facility] - 00:00: Medical 00 Center Allergies, Adverse Reactions, Alerts Allergy Allergy Status Severity Reaction(s) Onset Inactive Treating Comm ents Source Name Type Date Date Clinician Penicill Propensi Active Rash 2019- [facility] ins [facility] to 10-29 [facility] - adverse 00:00: Medical reaction 00 [place] s penicill Adverse Active Info Not [facility] in Reaction Available [facility] Social History Social Habit Start Date Stop Date Quantity Comments Source History SDOH [facility] - Alcohol Std Drinks Medica l Center History SDOH [facility] - Alcohol Binge Medical Zina ter Sex Assigned At [facility] Yael kes [facility] Tobacco use and 2019-12-25 2019-12-25 Never used [facility] St Yael slaters - exposure 00:00:00 00:00:00 [facility] Alcohol intake 2019-12-25 2019-12-25 Current [facility] [place] [facility] - 00:00:00 00:00:00 non-drinker of Medical Ce nter alcohol (finding) History SDOH 2019-12-21 2019-12-21 [address] [facility] [address] [place] - Alcohol Frequency 00:00:00 00:00:00 [facility] Tobacco Comment 2019-12-21 2019-12-21 quit age 20 [facility] Daily mejia - 00:00:00 00:00:00 [facility] Smoking Status Start Date Stop Date Source Former smoker 2019-12-25 00:00:2019-12-25 00:00:00 [facility] Medications Ordered Filled Start Stop Current Ordering Indication Dosage Frequency Signature Comments Components Source Medication Medication Date Date Medication? Clinician (SIG) Name Name citalopram Yes 40mg QD Take [address] (CELEXA) 40 7-31 by mouth Luke s - MG tablet 09:54: daily. Medica l 25 [place] carvediloL Yes 37.5mg Take 37.[address] (COREG) 25 7-31 mg by [facility] - MG tablet 09:54: mouth 2 Medic al 25 (two) Center times daily with breakfast and dinner . traZODone Yes 100mg QD Take [address] (DESYREL) 7-31 mg by [facility]ukes - 100 MG 09:54: mouth Medical tablet 25 nightly. [place] fenofibrate Yes 54mg QD Take [address] (LOFIBRA) 7-31 by mouth [facility]ukes - 54 MG 09:54: daily. Medical tablet 25 [place] lisinopriL Yes 40mg QD Take [address] (PRINIVIL,Z 7-31 by mouth Luke s - ESTRIL) 40 09:54: daily. Medic al MG tablet 25 [place] atorvastati Yes 10mg QD Take [address] n (LIPITOR) 7-31 by mouth Luke s - 10 MG 09:54: daily. Medical tablet 25 [place] aspirin 81 2019- Yes 81mg QD Take [address] MG EC 7-31 by mouth [facility] - tablet 09:54: daily. Medical 25 Center traMADoL No 50mg Take [address] (ULTRAM) 50 6-02 06-12 tablet (50 L ukes - mg tablet 00:00: 23:59 mg total) Me dical 00 :00 by mouth Center every 6 (six) hours as needed for up to 10 days. Max Daily Amount: 200 mg multivitami No 1{tbl} QD Take [address] n 4-10 04-10 tablet by [facility] - (THERAGRAN) 00:00: 23:59 mouth Medi sherwin tablet 00 :00 daily. Center thiamine No 100mg QD Take 1 [facility] t 100 MG 4-10 04-10 tablet [facility] - tablet 00:00: 23:59 (100 mg Medical 00 :00 total) by Center mouth daily. zinc No 220mg QD Take [address] sulfate 4-10 04-10 capsule [facility] - (ZINCATE) 00:00: 23:59 (220 mg Medi sherwin 220 (50) mg 00 :00 total) by [facility] capsule mouth daily. chlordiazeP No 25mg Take [address] OXIDE 4-10 05-29 capsule [facility]ukes - (LIBRIUM) 00:00: 00:00 (25 mg Medic al 25 MG 00 :00 total) by Center capsule mouth 2 (two) times daily as needed (Alcohol withdrawal ; take 1-2 daily as needed). Max Daily Amount: 50 mg chlordiazeP No 25mg Take [address] OXIDE 4-10 04-10 capsule [facility]ukes - (LIBRIUM) 00:00: 00:00 (25 mg Medic al 25 MG 00 :00 total) by Center capsule mouth 2 (two) times daily as needed (Alcohol withdrawal ; take 1-2 daily as needed). Max Daily Amount: 50 mg Alprazolam Alprazolam Yes Leonrado [address] [facility] Carvedilol Carvedilol Yes Leonardo [address] [facility] [place] [facility] Mens Mens Yes Leonardo as [facility] Multivitami Multivitami [place] directed [facility] Atorvastati Atorvastati Yes Leonardo [address] n Calcium n Calcium [place] Luke [facility] ent Clinics Vitamin B-1 Vitamin B-1 Yes Leonardo [address] [facility] [place] [facility] Lisinopril Lisinopril Yes Leonardo [address] [place] [facility] Chlordiazep Chlordiazep Yes Leonardo (Schedule [facility] oxide HCl oxide HCl [place] IV Drug) [facility]ukes - PLEASE SEE Memoria ATTACHED l FOR Outpati DETAILED ent DIRECTIONS Clinics Fenofibrate Fenofibrate Yes Leonardo [address] [place] with food [facility] Trazodone Trazodone Yes Leonardo [address] HCl HCl [place] at bedtime [facility] Aspir-Low Aspir-Low Yes Leonardo [address] [place] [facility] Zinc Zinc Yes Leonardo [address] Sulfate Sulfate [place] [facility] Celexa Celexa Yes Leonardo 1 tablet [facility] [place] [facility] Lisinopril Lisinopril Yes Leonardo [address] [place] [facility] Fenofibrate Fenofibrate Yes Leonardo [address] [place] with food [facility] Atorvastati Atorvastati Yes Leonardo [address] n Calcium n Calcium [place] [facility] Citalopram Citalopram Yes Leonardo TAKE [address] Hydrobromid Hydrobromid [place] TABLET BY [facility]ukes - e e MOUTH Memoria EVERY DAY l [facility] Immunizations Ordered Filled Immunization Date Status Comments Sourc e Immunization Name Name TDAP > 7 TDAP > 7 2019-08-[address] [facility] - Years-Adacel Years-Adacel 00:00:00 [facility] Vital Signs Vital Name Observation Time Observation Value Comments Source Systolic blood 2019-12-25 11:30:00 118 mm[Hg] [facility] Diastolic blood 2019-12-25 11:30:00 62 mm[Hg] [facility] Heart rate 2019-12-25 11:30:00 70 /min [facility] Body temperature 2019-12-25 11:30:00 36.67 Luda [facility] Respiratory rate 2019-12-25 11:30:00 18 /min [facility] Oxygen saturation in 2019-12-25 11:30:00 96 /min [facility] Arterial blood by Medical Ce nter Pulse oximetry Body height 2019-12-25 06:00:00 180.3 cm [facility] Body weight 2019-12-25 06:00:00 136.3 kg [facility] BMI 2019-12-25 06:00:00 41.91 kg/m2 [facility] Procedures Procedure Date / Time Performing Clinician Source Performed TRANSFUSION SERVICE REPORT 2019-12-26 17:53:49 Provider, Default [facility] - SCAN [facility] RHYTHM STRIP - SCAN 2019-12-26 14:40:18 Provider, Default [facility] TISSUE EXAM 2019-12-25 08:38:00 Kayla Arshad [facility] LAPAROSCOPY,CHOLECYSTECTOM 2019-12-25 07:13:00 Kayla Arshad [facility] CBC W/PLT+MANUAL DIFF 2019-12-25 06:07:00 Salvatore Dozier [facility] BASIC METABOLIC PANEL (7) 2019-12-25 06:07:00 Salvatore Dozier [facility] TYPE AND SCREEN, AUTOMATED 2019-12-25 06:07:00 Elizabeth Bey [facility] CBC WITH PLATELET COUNT + 2019-12-25 06:07:00 Salvatore Dozier [facility] MANUAL DIFF [facility] (MANUAL DIFFERENTIAL) 2019-12-25 06:07:00 Kayla Arshad [facility] PROTHROMBIN TIME/INR 2019-11-22 10:44:00 Leeroy Madrigal [facility] HEPATIC FUNCTION PANEL 2019-11-22 10:44:00 Leeroy Madrigal [facility] BASIC METABOLIC PANEL (7) 2019-11-22 10:44:00 Leeroy Madrigal [facility] CBC W/PLT COUNT & AUTO 2019-11-22 10:44:[address] [facility] REPORT OF PROCEDURE - 2019-11-05 15:21:47 Provider, Default [facility] SCAN [facility] TRANSFUSION SERVICE REPORT 2019-11-05 09:20:37 Provider, Default [facility] - - SCAN [facility] REPORT OF PROCEDURE - 2019-11-03 09:26:[address] [facility] POCT-GLUCOSE METER 2019-11-02 08:56:00 [facility] CBC (HEMOGRAM ONLY) 2019-11-02 04:04:00 [facility] PHOSPHORUS 2019-11-02 04:04[facility] 2019-11-02 04:04[facility] COMPREHENSIVE METABOLIC 2019-11-02 04:04:00 Zak Marielos [facility] HEREDITARY HEMOCHROMATOSIS 2019-11-02 04:04:00 Shruti Mckeon [facility] POCT-GLUCOSE METER 2019-11-01 22:38:00 Zak [facility] POCT-GLUCOSE METER 2019-11-01 17:48:00 [facility] PO[facility]-GLUCOSE METER 2019-11-01 11:49:00 [facility] FL ERCP 2019-11-01 10:30:00 Jaison [facility] ERCP,PAPILLOTOMY 2019-11-01 09:24:00 [facility] PROCEDURE W/ C-ARM 2019-11-01 09:24:00 Joni Segovia Adal [facility] ERCP,BALLOON SWEEPING 2019-11-01 09:24:00 Joni Segovia [facility] POCT-GLUCOSE METER 2019-11-01 06:20:00 Zak [facility] ZINC 2019-11-01 04:01:00 Shruti Mckeon [facility] CBC (HEMOGRAM ONLY) 2019-11-01 03:57:00 [facility]OS[facility]US 2019-11-01 03:57:00 Zak [facility] MAGNESIUM 2019-11-01 03:57:[facility] COMPREHENSIVE METABOLIC 2019-11-01 03:57:00 Marielos Crespo [facility] PROTHROMBIN TIME/INR 2019-11-01 03:57:00 Zak [facility] HEPATITIS PANEL, ACUTE 2019-11-01 03:57:00 Zak [facility] BILIRUBIN, DIRECT 2019-11-01 03:57:00 Shruti Mckeon [facility] ANTI-NUCLEAR ANTIBODY 2019-11-01 03:57:00 Shruti Mckeon [facility] - (GUNNAR) [facility] ANTI-MITOCHONDRIAL AB, 2019-11-01 03:57:00 Shruti Mckeon [facility] - REFLEX TO TITER [facility] ACTIN (SMOOTH MUSCLE) 2019-11-01 03:57:00 Shruti [facility]ke[facility] ANTIBODY, IGG [facility] IMMUNOGLOBULIN G (IGG) 2019-11-01 03:57:00 Shruti Mckeon [facility] HEPATITIS A ANTIBODY, IGG 2019-11-01 03:57:00 Shruti Mckeon [facility] HEPATITIS B SURFACE 2019-11-01 03:57:00 Shruti Mckeon [facility] - ANTIBODY [facility] VITAMIN B12 AND FOLATE 2019-11-01 03:57:00 [facility] CZAGN-9-[id number]\\, 2019-11-01 03:57:00 [facility] SERUM [facility] CERULOPLASMIN 2019-11-01 03:57:00 [facility] IRON, TIBC, % SAT. 2019-11-01 03:57:00 [facility] 2019-11-01 03:57:00 [facility] LIPID PANEL 2019-11-01 03:57:00 [facility] MITOCHONDRIAL AB SCREEN 2019-11-01 03:57:00 [facility] MITOCHONDRIAL AB TITER 2019-11-01 03:57:00 [facility] POCT-GLUCOSE METER 2019-10-31 23:08:00 [facility]H, MANUAL 2019-10-31 10:46:00 Yesica Sahni [facility] TYPE AND SCREEN, AUTOMATED 2019-10-31 09:39:00 Zak [facility] MR ABDOMEN WO CONTRAST 2019-10-31 08:57:00 Zak [facility] POCT-GLUCOSE METER 2019-10-31 05:57:00 Jordana Segovia [facility] BASIC METABOLIC PANEL (7) 2019-10-31 02:53:00 Pearl Marinelli [facility] COMPREHENSIVE METABOLIC 2019-10-31 02:53:00 Jasmina Feldman [facility] CBC W/PLT COUNT & AUTO 2019-10-31 02:53:00 Pearl Marinelli [facility] DIFFERENTIAL [facility] AMMONIA 2019-10-31 02:52:[address] PROTHROMBIN TIME/INR 2019-10-31 02:52:00 Jasmina Feldman [facility] APTT 2019-10-31 02:52:00 Jasmina Feldman [facility] POCT-GLUCOSE METER 2019-10-31 00:21:00 Jordana Segoviaod [facility] Plan of Care Planned Activity Planned Date Details Comments Source Future Scheduled 2022-10-[address] [facility] - Test 00:00:00 (procedure) [code = [facility] 47116039] Future Scheduled 2020-03-25 INFLUENZA VACCINE (#1) [facility] Test 00:00:00 [code = INFLUENZA Medical Ce nter VACCINE (#1)] Future Scheduled 2019-07-[address] [facility] - Test 00:00:00 (12+) [code = [facility] DEPRESSION SCREENING (12+)] Future Scheduled 1976-10-[address] [facility] - Test 00:00:00 0-64 YRS (1 of 1 - Medical C enter PPSV23) [code = PNEUMOCOCCAL VACCINE 0-64 YRS (1 of 1 - PPSV23)] Future Scheduled [address] [facility] [facility] - Test 00:00:00 malignant neoplasm of Medica l Center colon (procedure) [code = 471765318] Encounters Start End Encounter Admission Attending Care Care Encounter Source Date/Time Date/Time Type Type Clinicians Facility Department ID 2020-06-09 2020-06-09 [id number] 2020-06-03 2020-06-03 Outpatient [facility] [id number] [facility] 2020-03-27 2020-03-27 Outpatient Shyla Mahan [id number] 09:30:00 09:30:00 t [employer] [facility] Medicine Outpati ent Clinics 2020-03-06 2020-03-06 Outpatient Shyla Mahan [id number] 08:00:00 08:00:00 t [employer] [place] [employer] s - Drive [facility] Medicine l Medicine Outpati ent Clinics 2020-02-08 2020-02-08 [facility] [id number] 10:18:00 10:18:00 t [place] [employer] s - Drive [facility] Medicine l Medicine Outpati ent Clinics 2019-12-20 2019-12-20 [facility] [id number] 11:56:00 11:56:00 t [facility] M-DISC s - Road [facility] Medicine l Medicine Outpati ent Clinics 2019-12-05 2019-12-05 [facility] [id number] 10:15:00 10:15:00 t [place] [employer] s - [employer] [facility] l Medicine Outpati ent Clinics 2019-11-20 2019-11-20 [facility] [id number] 15:55:00 15:55:00 t [place] [employer] s - Drive [facility] Medicine l Medicine Outpati ent Clinics 2019-09-05 2019-09-05 [facility] [id number] 11:20:00 11:20:00 t [place] [employer] s - Drive [facility] l Medicine Outpati ent Clinics 2019-09-05 2019-09-05 [facility] [id number] 09:30:00 09:30:00 t [place] [employer] s - Drive [facility] l Medicine Outpati ent Clinics 2019-08-10 2019-08-10 [facility] [id number] 11:23:00 11:23:00 t [place] [employer] s - Drive [facility] Medicine l Medicine Outpati ent Clinics 2019-08-06 2019-08-06 [facility] [id number] 10:00:00 10:00:00 t [place] [employer] s - Drive [facility] Medicine l Medicine Outpati ent Clinics 2019-07-24 2019-07-24 [facility] [id number] 09:55:00 09:55:00 t [place] [employer] s - Drive [facility] l Medicine Outpati ent Clinics 2019-07-13 2019-07-13 [facility] [id number] 11:00:00 11:00:00 [facility] [employer] [place] [employer] [facility] ent [facility] 2019-07-09 2019-07-09 Outpatient Shyla Mahan [id number] 08:47:00 08:47:00 [employer] [place] [employer] [facility] ent [facility] 2019-07-06 2019-07-06 Outpatient Shyla Mansfieldt [id number] 10:45:00 10:45:00 [facility] [employer] [place] [employer] [facility] ent [facility] Results Test Description Test Time Test Comments Results Result Comments Source Tissue Exam 2019-12-26 13:53:00 Test Item Value Reference Range Interpretation Comme nts Case Report (test code = 104) Surgical Pathology Report Case: [id number] Authorizing Provider: Kayla Arshad MD Collected: 12/25/2019 08:43 AM Ordering Location: [facility] PERIOPERATIVE Received: 12/25/2019 09:37 AM SERVICES Pathologist: Tamia Lopez MD Specimens: A) - Gallbladder B) - Biopsy, Liver DIAGNOSIS (test code = 3220) c0kqeZPmCSYmy1jeNMCyhJXkZhYqYyXuPvPrBe pc tMKhYQdgsoOpGCwyu7CbL6GrEuPhDCjfrbKcWFMw HuqbaddqIEHpWLT4yfXjOJPzJXddUIAwBQefXf5r iYZsfCtjPfJlYTXue5czgcNYcoalfUb7h0rdDEPm CdN4yERvPTpuN8nsoaGugELqLYHfPPc6yQ83EUDa jC2aqUGaLXinvqUrWlB4PVyzCTLkUyL6QLKeoPHx VADiS2soEVYtPQexECGsKUnszJJjMJZ0dYcns0N2 lQCdnQPwjIovHmYoYwAgVEIOz3PpCYd5jLgxW5Kh TIWiZiS0nOWoQHBfPIdaRZDyIHBjaiN4gW50NCfr hoD3lCBbp2Vcx79zo721oR3ogUTzWGK4RVXvKSGw zWDiYSMoIOG1TEInhSKmW5e0MxAktZGcT4C1MgCf cXBmC0W5EbLyzVZiH8N2VoRheJMrNKEtiQSbBe7c mYNbkWUqre0kyr82QKU8m6LpbDjkCVI3OIU1OsHg Vw5cmQEdSRBcPD5hTgZqiKEhYKCkwi09bQinCWji jzSoyD8cAaXjLNHfbQSwNFRqSO3riBWtSYGypR3l trztSZEjThHdpiixZROwuYxxrvImUo7acUbpBBO0 YZufN8bfmN7hUuK6WKpsG3oksL9aNYv3NRvdnDJ4 VPNxnT8rON2dglmeu0mgUhUvTL8lvelxd7ntTjWq FC0xavf5k9qyZrUiSH5euvhmf7pfCuOdPBpkVEOi edwzMLTye2WxtfptXYTkw1IsG9EtjWwfF68otYhv E55aRPHimCchwL4roBmtaF6mRrJeTqEqHQemhOVm EPKmrJeukLmuyX0mEpCrQsRhAUobYB2cNKYxK1ls dWRkIGIkOOZfC1iaRyBatX2hdJszFGmiarDwQBMg ruLLVxBETCwNBgmHJRHYRcgoI4qYLERRSXPOGFGE G64THtluZOCqhij+HZ1dsup+LSBDSFJPTklDIENI H7dEU1rZQWeGQQBsSJIlwjkqYLNvBb6kSWiWRLEu SSLAAcDyNsAOERiZMDCVD2ZYQLjwnCPeXL4mrhas uPBagrzxVTzqfkAsHSfirifcCZIpFDvgS1nrWzOk PCLnfHudFZgql2XrNHMmAJWqCpPsiLL0ALIeR8Fg XHUxNjAgXCdhMFxwbGFpblxmMVxmczIwXGxhbmcx CSKqGCsmK1dnJnUsGESvjYcwDBkat9ZeQCQbBONk RmRaCE2aGP5RILQkK7RASCDVT6dNOqtzBPJsMIAi WQKyHH8KVVPrTL3UYOPOYWHTKVWPNGGUK5gAGIFU DLTLEVXCQWIQD0TFRqIsKmhHWt1KOCEbC7TQUMXq MuEYStR5PXbuDOAkcFTrAOdseSSstsblTSbrroX0 XHBsYWluXGYxXGZzMjBcbGFuZzEwMzNcaGljaFxm HTcaEhQbMKLuFHpaT8exApDeQjOfJZPlKMDgNF0r WgDJCACFPdVdHe8TMYJHIMrXT99TKxfePVKPOV8E JmCQSU4XEG6YGVCPN4tEQ6PNM2jAXgfmRXMquGKq yBAaGBHrMBMsGPjcNMDfJUFbHtCndPmkwG2gYmEt FvKbMXzrUQ8vXQXvO0ecgTRjLGArOGOfE9fdAbCe jB7gmDxrOSqtfvAyPYh+VN7yaqr+ZB9lTA3PQHTu JqpJKBIXIVFVNTSXWSSTCG8FKeigCQI9o1zbrMNm XHNzdGUxODAwMFxhbnNpXGRlZmxhbmcxMDMzXGZ0 ioZuRTCdGZefJFUjARgsYy5qfDHgtGyjKrTqLNSl p8ylmiNIehpbqMu3b7usLHChLdO0oHRfMGmwJ2gp dcAidBCuFNCnVLe2eT41FUCgiN5qxCIbSObjujQq KvA1RZfpMIJtBdR9JNDheUJfARYeS6mpAIEwCVzg BBHqBXhzlNTzQPN3qVlfl0Q5hMWwuDOydApjAvTa GiLjOxHDr7TaHEq6pQotW2VwXQFqKdC1rJZzBOCg JTbqUFDbOIUptuY0mG86HPonqoX6pFVeh1Klo95c r644lY4kfLBiFXN5FULnUIDwpOAfCZMtDXH2EULz eQIsH3myEJWpYJ0xqevzFKghZWvzORNtfBL6QKKt gHDuF9NfVTUyIWmiTVYvosm7WgOvIc2juKSaiSsu HXnfy3mtj4kfjNLuDmo9HJBhZvUfYaefYIobh0Gg c7jwIGYjnq8xZTW7lVRakGtoy8B0sNXkWCLsnPWa NMHoAA3reEAhVFTcgT3wsgpnDHFgWnSxighqCOPm jVzzwiLsTv7wqUxdKZH2GJojT1bihW2yWaJ3QRss D5makT8zQOo0QZasKXMiyND3ctY3HSCjkKEiI3Zh kD4nCKTeGB5hhdy3u8ssRLA1USfwTSPrFeQ5hjF5 XDOekAMzUMDmtAxnKVqxj632ODU7AfKjLWYdd5Ei Z9YlgGxwA31akXgpN17kSFQckHxgjT8gxRikzX0d MsAlGlBlGWixfPduYX2jXUEbI2vzgRPzSCQkPKAn Q1agWgRkaS7dqYfmLNiuvsSmOSOfXpr4MZSsdJEc KUSsGmq7OUKfYNDiK30jvrryCSY8kG8dj1apg3Og PXetOWY0ZSGpw26qNPsrscZ5UIipSb53IRawDFL1 OSruWUZ9rT== CLINICAL HISTORY (test code = 3356) r5hpaDGjKAAhcEQrDhBtKZFzRFAgs9y cZGVmbGFu XzJsUlYaIrNqXnvdgWBxNMCpQuDsu0hfr486wQAz l6ghIMRbZhO0lWSyDWHnmOLkI493UZAfVWven1nl u6KtUEAaiNFso0Z4ERFEillczKv5nHxfK02hv9P8 MwhwV8anXOHpAOYyU2RoQV1oIFLsPey0QEB8YKP6 NJEtNRDfF7NsJB5sRXOtxBWtGQx3y7kjyIhlLZJm GHF1e1xpLImthlHbEV1vxb9aeCr4o1vmrtMmJVEn IEJuvOCVQQDcA7GduHcyBb3vgNq2xSoxVlumEUM9 Sob4MH8xxh95zqy1jAeeSFOonfptJtX1XOtuTNYd zegdYOv9BRatGZNkiJplEXdrQWFwxgltQKlaNJUo fMrgOLxqXWByRomoCYyxMYWoYPR4XRmau333CBV7 HIyda9hxp5evkMAaKex7NARmWmEhFcjeXYixh2Lq s3svUPMzct1rUKU3kEZmkMfuw9U2nUBtNNQyvKPf vjZtUVVdFbH9DYruTO3deb77OSWyLFB3qs2byQVs wXtgzjKwyJYmBRzzY8JgYECef784CQAuT1CsZQCf j7X7wlByCrEeEZJzbFD1kfB2WKCvJOl1qQGoqfK4 hlAqrKSjW1gznZ59QjPxaLJfO8GawN70GnXxtZGt O4PwiJ42UlGupRKxD9GxtA53LfLwnJWzIHPccXKr Ev5zdBZvpPTgn1YibSRlWWswS01mm563SCHaklQn Y6uyxMHhkcckqEKvtspjSXadehS8DYq5jtDalins pNhcyMWrljndCOhlfpSnGQxfrbeqUPCaXYtwT7ha CiNvNDZiqLbdQLcvs9GdSGIdQUYmXnCwN4cfdFXo eFP2tPZqL0qhpDZjwCSymFPgfSBiR2v1XD0uKU1f VCv8IvYzmAIbrD== SPECIMEN SOURCE (test code = 3377) a4cjfVNnFDCyiMBuPcWaYXFiBKBzc8qw ZGVmbGFu EiJpOvVwYzVlLkxtcWUvMSObGvJfq1jxr315kTIl d8tzTREoJeQ7lFPkQLUmqPCsB731e9ysg4rncvYm tIG1SPSrNQV0VQidwtRkwmL9FLyakASiKtO3IPyg xkTwBYryzsKqbvJrUkm0UVXoF312WVK2gSphc1zt SXZ2NWDnOLFsWrEcBi9ezYAeR245WXXwQAOHIWJm pYq3OSGgulJulyPzeRHXx546A650v8cjQPGbnpGi qEfOnlnzk1qzW176BFOwjBSctmVkPjHrUBUsmHUn gRV3XNDpFM2hpyzlUlHvHY3rahhrNyYgEG9pnsr2 JuIvCZ0wbyiqQmEzQIgwJKTvutxgLSSqv4Pekprq WT9hH6Iqt8L5iC8sxPUyJQMoiAOqCkNlKQJfiw1r sVOfKHytd9BiBMF8teP3uYPopLZdZOWkFE85Bbiw t4DpJwaiJUU4HOWukaZpq4Whx3fvQdDxawDnP4ey T4SbAXLbCTFzPYLjJhIdawTxg0Pmg3KlgBJesOn7 a8miQPGaHYQtyCobs2khAPE0WEIyS7Y1uEYfe2qb KWrwEBBedIT4bzrfWPyePNVqojN1eljaTLufEBRz uUI5lxhwAFcyBEGpXxA2lwhqTMgdNAUeTEA4LZyq o656PUH5ECnlDumeKSeuMSXwvwRtrgJpvGcwCVVh GJRzOPpfGYOpQVxbZHOaBJGmUjHfuDlsfJimnQ3l IoHvMuQqRJkqUM8kANGcG6uqkYAxFNDhBAZoF0hl FqPxnK3alWqvVOskdpAbWIBzDIBIIHmpAsgjMVGx jretXHAqCt1iZRNax5DkbTkumYl7BPPasXSdcO== GROSS DESCRIPTION (test code = 3366) k7wegWIbOQOgyEMsJrNmVKToIVCvt2 lcZGVmbGFu [file] IGNvZGVccGFyIEExLWdhbGxibGFkZGVyIGFuZCBp jtlxXZDnpVC9qIYkZQRkdPMlGCNsuM9rjCCuXYVk KUOdiIbrRIT8pVnxf9QmFFAjOSFnRMvvLFTbsEUv OLIuQJKTSUOauGKnETVxdaZvp3GdZUmvolHuGJXo eMRdIQssdDxnsBhrBYLuxUwfukMdvsTcBS0pBMXq N8Tgc7Mal55qxgMyLwMgXJUsSPNmtTn0HVUjAjmc rHA2MmPvgfFfITZdZtSunECeetJwIC2kdBbfRsdl SR2jFIYnLLmaRJKtJU8biBPnGBDfpq91CTkpz5rh g70ljMO4xJMwkEXbR82uKZT4zDatpUClioDhhNm4 QNVaHURpkiHxa2YvsJd9bDRmPZunFJVixO6ovF0m QjEuXHBhclxwYXIgUGlsYXIgQXJndWVsbGVzLCBQ QSAoQVNDUCljbVxwYXJ9 MICROSCOPIC DESCRIPTION (test code = y2awqZGlNRAhrFDyWqTxCVCxORNfa2 [place] [address]) OkXzPeZdGhIoJmfycPPfQUBcYiFhy9zmv769yLHk x8ieSFWyRxD1dFGyHFKwlEIzU779CSWtFLtqy5vg w4BhBVNfyLDhb2Q2JMClxprliOt1iYzsH53bn9H5 OudgY0eaNFHwUQVrM6GrVF7eYIUnGno5FDK0QOR8 MLUnYVVuK0YjHW1zMVRsbOThFEq9n5qsnEcoKJCm SAT4s7ljCGnbcxBbKC8kqv9bqTc5j1ggzqExHHDr ZBWdfCXABEGtL1OueLxyEo1pfAu4wKmdEfndPRW2 Lud0HC6jev21uke7bAveVRLenpqxIhQ1XCdmWRDq siepSTi6WSrxSRDsxRqbRIkaJXXnbmogAQtqDNJj jQqnNUipSJPaRcpeNFwxOOOnQLZ6ETdsk272MJW7 CVfyy5clv0mexXXdDcb5QQBdQnYqPqgbOJxay2Pw y9zgVTHwsw0cMDP3iAOfpOter3H8bJUsLWLayLQz zuSmSPAlwz54dVShjFHouAKvao2nwqCmsPZimEBj KAV2sSXlvdUmBWJiqTPgQLGnAQVvY5ocCvXmjyHk O7cpI2NsWCPgHDRoATXbTxDyggVyh7Fot8BobJCt gYr4q4qbEDRgDNKfoXwjs7diFTV9FRZeU9Q6yZAe c0jgWIyiZLVzdLH1tbhjNVoaBTLzxqK3alckIIdg LIUlwJD8nkbiMNfnNPLvRoS7qiswGYrcVONwOVJ2 YKcnx005RYP1ABqpCydrVIkaFNItiaXaawJhyNms ZGVjXHBsYWluXHBsYWluXGYwXGZzMjRcbHRycGFy XHFsXHBsYWluXGYxXGZzMjBcbGFuZzEwMzNcaGlj [file] MVxmczIwXHBhcn0= SPECIAL STUDIES (test code = 3376) z8dqxTXaBXNtsOZlByOkYOKsHHIgd9hv ZGVmbGFu RgPdBrKmXyQzDluwbVZrRAXsKiVub8tln209zUOl n8xnLWHzKxR0qYVhHKEnaIWuU895YRYfMPpgg9gf n2WgZOCbtVGek8F9NGMJTOjnXwRxQ080KFHpUCkj m2nzf8FgZGNdnGMxs4N0LUWDogytvOi8dVtiK08f w9S1ZbswB0hgKMGdDBNoF1JdUW1zYPFmRse2CBK0 BGB6HIQvQFHbR3UySO8rERAxsBWtZRy4z2gbyWkt MFDgIMB0t4pqDGeqbrD5KN9jxe0fgIv6e0swnaXx FSEhQXPcdKMYXKXyR7BrqJatRt9slFy4l8tkFzbu tyM9nALpQhVfEtAxSDfjlLXadrznLPOwOID1tECS QKk7F344q1leGHVqxbAasVsPuvuvv6ruZ209FLZp sZCfylGrKaTeLCIarUOwcPX4DUJbRY1pcthyJhXh FY4cfmdaWuBdZT4irei9YiBaZG7mkmtyMmFiINdr SXBqryfaKHAwe5UkezxdGH6lO4Mej6K0kR0ooAJg EXLgaIMdUgGfDHNtfa5txNTxCRavCDB3SFRdrtBt h1Npv7uzVlOhhvIwO5bbD3OtRBYuWQAdDBSnWoQd tiElj2Iwh4HmiNVdwGo9o1acELZwYECkyLwnq1td BLE2CYAbK9B4zKDdu8xuPZluAZKkgGH6gupuDCmi IKCtgqB4whnoXJvwWOPoqNQ9lnmbWQcgGDSjEyB5 dhqsCWdhKQKpBBB1QVrli626DJR1SKwbWgtoJQrw XHBnbmNvbnRccGduZGVjXHBsYWluXHBsYWluXGYw KHRnDcPlnNxcuCfylS3uJjRmFdDlHlqiCI3hXTZh A6fcpHViHFOlUFPxO0jxFdGmqZ0hlXnbCAqhLsMt EwKcFqUVuQJpkZ19IEQttyT2AYVgv32dz4AvjNnl jtItWVNdWZmlM6w2PUWvESRbZZV9p9Dsh4CrzP8g wJ0hiZkwtS3uyHRxhJP5lmsoa9Tek9DwC5bdqYPx dGFpbnMuXHBsYWluXGYxXGZzMjJcbGFuZzEwMzNc iEdhiDrjDYmhLeDoXESuUKphJ9utWpIiW5LkJHDj BtFdhYWcJ7jfwLFoRIZqrqgufNEvplvnMRswwaEx MAwqmtsoEAApPTleA4zrYdRuAAGquDtkHClqh1Ds JRPvZKMtWmiwksQvVAEbznXyu6mnT0mrZYDeDBM0 DV8duwGhWcVwTJ2krL34m5Dgp00iv84qiX3raCNl mgKxI26vzPMksBKon8OnJXWfskBtpIE4OMVcICvi oovsc5p8kRL0fFAlkGYtpDV2mLZqeJYqMEBWaUPh BVDse959nh6hDSPrnCTphoAtvW8bUTctnlqknXWt OK0gHZItDHMuRZSjME02ebWlME1nnJYym2fuaxRx yQKja4CphLS3AUWynVGlelbcHh6yNH61RUJxVLky uM7bdPBwjiQnTH9pHT3gN3V6oOArUZLucyGso7ll TOjzNX5eDYFdrCsrRbuvRMEdHSWmcnCstEF4SHOt uFdsuQ9wYtZgAzVbFtvjJL1vMDVyV9boxKFrLZHs YFQmV7zqRsZajR5nwHouOJxnLhToWvKlHqriwKXl aNbiQRAglFnthO4wBiHgMuQwQjqjJX9lSFNiZ6xr rAZyKUYkUEDcM9buOqSnnA6zbLucQHuxHjMkCmSf MiAgXHBsYWluXGYxXGZzMjJcbGFuZzEwMzNcaGlj wOynNBgfFaHrLNYbYUpdS8feQgOfY0XkWEMwHiDx oVLdS9moeWLfKBFmBBtgDDBeEPYrVdPryXUzXxNd VaHvaAexfUvnROryEvRyLBTlPConI7asExTuE5Ot FQUnScPoEV5ezG0leJrhrQ4ynAFgzHZ5jryaiXGb jW8zX6BhHIQyd1Kvpozfj3OcEYQfiaOvax6iTEOj vMVWIDrti8PbX8BcQSa8t4JrdBsemA2wHfNeClMo LomeGP8yBKBiC4dtqMJqDHOfIXSyC7wyVbNjhD5e xNgtVHlcWwUwQkRhWnj1KPDdEyKhWeurCNPjDBbl XGYxXGZzMjJcbGFuZzEwMzNcaGljaFxmMVxkYmNo XZPbAGdgH0npHdGsU0JeOMLqOtFexlYFZICoL2Wj BLPruySbdvglVTJ9kZ2iy4f8INtdOw9vRRSztxzt e1ybsvBaoOTws7OkWJDkrtHbb0WxFXOvzrCjsUUw RBQhvdIdum7xafNcOSMiYYWrL2CpkrujjVqqspB5 QXViVZLvdWSfaOxuWZXxWJz5NHaiykWrw9GhPsQa ucIymMJvkpSeUV5dDIDdmMZdutFsCQJ0LDIkQRYY KtUoNRDac6RxIS4tQDGiiPxsYBQirM1nu1KlZKEp e24iKPUtQIWCPXJqpYMkDKAfhLNmhLxbKITyqIdq bSKmqEXqEGQfCJOeCH5jUUOkyyBjnSJmg8YoqDYf tbDxq8IqzuMlQAJeSLB2LiBQpMYfwTLqqWZxufB2 y6AvOQHyoiEyyLbgrRHavXKjqISya9Bqko5aTEHb a0egeShzOS3uiVYnMKEvVDubfsYjTYQynjOzvcZc k7RrI2S8qL1oMVyrv5HuCj5pQDXia0LrywPeDzFM tGjdGEooBz2cBUEvatfblYTdB8VhqTkdtADuNVLh FZQwWZNjHCMNsWvfwOLqmRYDIIQvkzZ7g5N4GJuy cRAnxaYjQU52UJCrWE1opOFisPIbc7EwGUq3HGNc E6jHPP95GEciFWAisFVbhHidxUVwRMYbUEZpmbMg pg2vqOfrkTEws79ksZE3dEM7OUCzfO0eE4EkAUrk Lq7rIGRdopgwqPChkZqrVd0vrDufbJ6eTlBwCmRk BiqlNI7rBCJyP0vnaHZxPGIfVHUeQ7dtPoRrtL5y aFxmMlxmczIyXHBhclxwYXJkXHBsYWluXGYwXGZz EuKebRmbrH0qIcGzHqDqLVanIKH8 [facility] [id number] 13:53:00Surgical Pathology Report Case: [id number] Authorizing Provider: Kayla Arshad MD Collected: 12/25/2019 08:43 AM Ordering Location: [facility] PERIOPERATIVE Received: 12/25/2019 09:37 AM SERVICES Pathologist: Tamia Lopez MD Specimens: A) - Gallbladder B) -Biopsy, Liver A. GALLBLADDER, CHOLECYSTECTOMY: - CHRONIC CHOLECYSTITIS.B. LIVER, CORE NEEDLE BIOPSY: - MILD STEATOSIS. - MILD PORTAL AND PERISINUSOIDAL FIBROSIS (FIBROSIS GRADE 2 OF 4) - NEGATIVE FOR BALLOONING DEGENERATION OR CHOLESTASIS. - MILD BILE DUCT REACTION. Signing Pathologist Direct Phone Line: [phone] signed by Tamia Lopez MD on 12/26/2019 at 1:53 PMSymptomatic cholelithiasis [K80.20] [id number]. GallbladderB. Biopsy, liverA. Received in formalin labeled with the patient's name, accession number and "gallbladder" is a 9.7 x 3.5 x 0.8 cm previously opened gallbladder with a 0.2 cm in length by 0.2 cm in diameter attached cystic duct. The serosa is yellow-pink, smooth and hyperemic. The specimen is opened to reveal approximately 1 mL of hemorrhagic bile. Calculi are not identified. The mucosa is red-pink, trabeculated and displays a 1.0 x 1.0 cm thickened area at the fundus.Sectioning of the area reveals a focally cystic wall measuring up to 0.4 cm thick. Typesetting Supervisor sections are submitted as follows:Section codeA1-gallbladder and inked cystic duct marginA2-[facility] kened areaB. Received in formalin labeled with the patient's name, accession number and "liver biopsy" is a 1.7 cm in length by 0.1 cm in diameter delgadillo-yellow soft tissue core which is filtered and submitted in toto in B1.HAZEL Burroughs (ASCP)cmB. Section shows 1 core of liver parenchyma with about 7 portal tracts and is adequate for evaluation. The architecture is preserved. There is mild steatosis (~5 - 10%), predominantly microvesicular type. No ballooning degeneration or Ema Denk hyaline is present. There is mild focal lobular inflammation. There is very mild portal lymphocytic inflammation. No significant interface hepatitis is seen. The portal tracts have preserved bile ducts with m ild bile duct reaction. No periductal inflammation, granulomas or bile duct scars are seen. Trichrome highlights mild increase in portal and mild perisinusoidal fibrosis. Special stains:Iron stain; No iron deposition in the hepatocytes. PAS (D): No hyaline globules are seen.Trichrome: Periportal and pe risinusoidal fibrosis.Reticulin: Highlights preserved architecture.ACTIVITY SCORE (JESUS)Steatosis: ___ 0 (<5%) _X__ 1 (5-33%); ___ 2 (33-66); ___ 3 (>66%)Lobular Inflammation: ___0 ; __X_1 (<2 foci/200x); __ 2 (2-4 foci/200x); ___ 3 (>4 foci/200x) Hepatocyte Ballooning:_X__ 0 (None); ___1 (few ballooned hepatocytes) ; ___ 2 (Many/prominent ballooning)Total: 2/8FIBROSIS:__ 0 None__1 Perisinusoidal or periportal (perivenular)__1A Mild, zone 3, perisinusoidal "delicate" fibrosis __1B Moderate, zone 3, perisinusoidal "dense" fibrosis __1C Portal/periportal This category is included to accommodate cases with portal and/or darya portal fibrosis without accompanying pericellular/perisinusoidal fibrosis_X_ 2 Perisinusoidal and portal/periportal __3 Bridging fibrosis __4 CirrhosisThe interpretation of this case included the use of immunohistochemistry or special stains.Control Slides Examined: In-house known positive controls were evaluated along with the test tissue. These control slides run alongside of the patients sample show appropriate staining. Internal positive and negative controls when available are evaluated Immunohistochemistry technical testing was performed at [facility], Pathology Laboratory where it was developed and its performance characteristics were determined. It has not been cleared or approved by the U.S. Food and Drug Administration. The FDA has determined that such clearance or approval is not necessary. The test is used for clinical purposes. It should not be regarded as investigational or for research. This laboratory is certified under the Clinical Laboratory Improvement Amendments of 1988 (CLIA-88) as qualified toperform high complexity clinical laboratory testing.CBC with platelet count + manual [id number] 11:59:00 Test Item Value Reference Range Interpretation Comments WBC (test code = 6690-2) 5.4 3.5- 10.5 K/L RBC (test code = 789-8) 3.68 4.63- 6.08 M/L L MCHC (test code = 786-4) 32.8 32.3- 36.5 GM/DL L Hematocrit (test code = 4544-3) 35.4 % 40.1-51 L MCV (test code = 787-2) 96.2 fL 79-92.2 H MCH (test code = 785-6) 31.5 pg 25.7-32.2 RDW (test code = 788-0) 13.4 % 11.6-14.4 Platelets (test code = 777-3) 226 150- 450 K/CU MM MPV (test code = 68052-0) 10.9 fL 9.4-12.4 Lab Interpretation (test code = Abnormal 11069-5) [facility] [id number] 11:59:00 Test Item Value Reference Range Interpretation Comments % Neutros (manual) (test code = 57 % 1359) % Lymphs (manual) (test code = 16 % 1360) % Monos (manual) (test code = 1361) 14 % % Eos (manual) (test code = 1362) 10 % % Baso (manual) (test code = 1363) 0 % % Bands (manual) (test code = 1348) 1 % 0-10 % Atypical Lymphs (test code = 260) 2 % 0-0 H # Neutros (manual) (test code = 3.08 1.80- 8.00 K/L 1365) # Lymphs (manual) (test code = 0.86 1.48- 4.50 K/L L 1366) # Monos (manual) (test code = 1367) 0.76 0.00- 1.30 K/L # Eos (manual) (test code = 1368) 0.54 0.00- 0.50 K/L H # Baso (manual) (test code = 1369) 0.00 0.00- 0.20 K/L # Bands (manual) (test code = 1349) 0.1 0.0- 0.8 K/L # Atypical Lymphs (test code = 263) 0.11 0.00- 0.00 K/L H Total Counted (test code = 1351) 100 Bands plus Segmented Neutrophils 3.13 (test code = 1352) WBC Morphology (test code = 487) Normal Platelet Morphology (test code = Normal 486) RBC Morphology (test code = 762) Normal Lab Interpretation (test code = Abnormal 06422-7) [place] [facility] WITH PLATELET COUNT + MANUAL [id number] 11:59:00 Test Item Value Reference Range Interpretation Comments WHITE BLOOD CELL COUNT (BEAKER) 5.4 K/ L 3.5-10.5 (test code = 775) RED BLOOD CELL COUNT (BEAKER) 3.68 M/ L 4.63-6.08 L (test code = 761) HEMOGLOBIN (BEAKER) (test code = 11.6 GM/DL 13.7-17.5 L 410) HEMATOCRIT (BEAKER) (test code = 35.4 % 40.1-51.0 L 411) MEAN CORPUSCULAR VOLUME (BEAKER) 96.2 fL 79.0-92.2 H (test code = 753) MEAN CORPUSCULAR HEMOGLOBIN 31.5 pg 25.7-32.2 (BEAKER) (test code = 751) MEAN CORPUSCULAR HEMOGLOBIN CONC 32.8 GM/DL 32.3-36.5 (BEAKER) (test code = 752) RED CELL DISTRIBUTION WIDTH 13.4 % 11.6-14.4 (BEAKER) (test code = 412) PLATELET COUNT (BEAKER) (test 226 K/CU MM 150-450 code = 756) MEAN PLATELET VOLUME (BEAKER) 10.9 fL 9.4-12.4 (test code = 754) (MANUAL DIFFERENTIAL)2019-12-25 11:59:00 Test Item Value Reference Range Interpretation Comments NEUTROPHILS - REL (DIFF) (BEAKER) 57 % (test code = 1359) LYMPHOCYTES - REL (DIFF) (BEAKER) 16 % (test code = 1360) MONOCYTES - REL (DIFF) (BEAKER) 14 % (test code = 1361) EOSINOPHILS - REL (DIFF) (BEAKER) 10 % (test code = 1362) BASOPHILS - REL (DIFF) (BEAKER) 0 % (test code = 1363) BANDS - REL (DIFF) (BEAKER) (test 1 % 0-10 code = 1348) ATYPICAL LYMPHOCYTE - REL (DIFF) 2 % 0-0 H (BEAKER) (test code = 260) NEUTROPHILS - ABS (DIFF) (BEAKER) 3.08 K/ L 1.80-8.00 (test code = 1365) LYMPHOCYTES - ABS (DIFF) (BEAKER) 0.86 K/ L 1.48-4.50 L (test code = 1366) MONOCYTES - ABS (DIFF) (BEAKER) 0.76 K/ L 0.00-1.30 (test code = 1367) EOSINOPHILS - ABS (DIFF) (BEAKER) 0.54 K/ L 0.00-0.50 H (test code = 1368) BASOPHILS - ABS (DIFF) (BEAKER) 0.00 K/ L 0.00-0.20 (test code = 1369) BANDS-ABS (DIFF) (BEAKER) (test 0.1 K/ L 0.0-0.8 code = 1349) ATYPICAL LYMPHOCYTES - ABS (DIFF) 0.11 K/ L 0.00-0.00 H (BEAKER) (test code = 263) TOTAL COUNTED (BEAKER) (test code = 100 1351) BANDS + SEGMENTED NEUTROPHILS 3.13 (BEAKER) (test code = 1352) WBC MORPHOLOGY (BEAKER) (test code Normal = 487) PLT MORPHOLOGY (BEAKER) (test code Normal = 486) RBC MORPHOLOGY (BEAKER) (test code Normal = 762) Type and screen, [id number] 06:58:00 Test Item Value Reference Range Interpretation Comments ABO/RH AUTOMATED (BEAKER) (test O POSITIVE code = 2260) Ab Scrn (test code = 890-4) NEGATIVE [facility] Metabolic [id number] 06:42:00 Test Item Value Reference Range Interpretation Comments Sodium (test code = 138 meq/L 416-783 3839-2) Potassium (test code = 5.1 meq/L 3.5-5.1 2823-3) Chloride (test code = 105 meq/L 98-107 2075-0) CO2 (test code = 27 meq/L 22-29 2028-9) BUN (test code = 15 mg/dL 7-21 3094-0) Creatinine (test code 0.96 mg/dL 0.57-1.25 = 2160-0) Glucose (test code = 107 mg/dL 70-105 H 2345-7) Calcium (test code = 8.7 mg/dL 8.4-10.2 93486-1) EGFR (test code = 83 mL/min/1.73 [place] [address]-7) NOT ACCURATE CREATININE CLEARANCE IN PREDICTING GLOMERULAR FILTRATION RATE . ESTIMATED GFR I S NOT APPLICABLE FOR DIALYSIS PATIENTS. RICO (test code = RICO) Supervisor Tumbling And Rolling ID - PIAYA L Lab Interpretation Abnormal (test code = 11150-7) [facility] METABOLIC [id number] 06:42:00 Test Item Value Reference Range Interpretation Comments SODIUM (BEAKER) 138 meq/L 136-145 (test code = 381) POTASSIUM (BEAKER) 5.1 meq/L 3.5-5.1 (test code = 379) CHLORIDE (BEAKER) 105 meq/L 98-107 (test code = 382) CO2 (BEAKER) (test 27 meq/L 22-29 code = 355) BLOOD UREA NITROGEN 15 mg/dL 7-21 (BEAKER) (test code = 354) CREATININE (BEAKER) 0.96 mg/dL 0.57-1.25 (test code = 358) GLUCOSE RANDOM 107 mg/dL 70-105 H (BEAKER) (test code = 652) CALCIUM (BEAKER) 8.7 mg/dL 8.4-10.2 (test code = 697) EGFR (BEAKER) (test 83 mL/min/1.73 ESTIMA ESTUARDO GFR IS code = 1092) sq m NOT ACCURATE CREATININE CLEARANCE IN PREDICTING GLOMERULAR FILTRATION RATE . ESTIMATED GFR I S NOT APPLICABLE FOR DIALYSIS PATIEN TS. Supervisor Tumbling And Rolling ID - ELHAM [id number] 09:18:00 Test Item Value Reference Range Interpretation Comments Ammonia (test code = 50 18- 72 mol/L 68538-1) RICO (test code = RICO) Supervisor Tumbling And Rolling ID - THEO Valdez Lab Interpretation (test Normal code = 41075-3) [facility]2020-05-06 09:18:00 Test Item Value Reference Range Interpretation Comments AMMONIA (BEAKER) (test code = 348) 50 mol/L 18-72 Supervisor Tumbling And Rolling ID - THEO epatic function [id number] 03:49:00 Test Item Value Reference Range Interpretation Comments Protein, Total, Serum 6.3 g/dL 6.1-8.1 (test code = 20101129) Albumin (test code = 3.8 g/dL 3.6-5.1 ) GLOBULIN (QUEST) (test 2.5 1.9- 3.7 g/dL code = 8281986) (calc) Albumin Globulin Ratio 1.5 1.0- 2.5 (calc) (test code = 1759-0) Bilirubin, Total (test 0.9 mg/dL 0.2-1.2 code = 20101201) Bilirubin, Direct (test 0.3 mg/dL < OR = 0.2 H code = 6484255) Bilirubin, Indirect 0.6 0.2- 1.2 mg/dL (test code = ) (calc) Alkaline Phosphatase, S 87 U/L 35-144 (test code = 6768-6) AST (SGOT) (test code = 19 U/L 10-35 20101205) ALT (SGPT) (test code = 11 U/L 9-46 ) RAC (test code = RAC) Performing Organization Information: Site ID: [facility] Address: [address] [place] [phone] Director: Herve Stringer Lab Interpretation Abnormal (test code = 57496-4) [place] [facility] with platelet count + automated [id number] 03:49:00 Test Item Value Reference Range Interpretation Comments WBC (test code = 5.8 3.8- 10.8 ) Thousand/uL RBC (test code = 789-8) 3.08 4.20- 5.80 L Million/uL Hemoglobin (test code = 10.3 g/dL 13.2-17.1 L ) Hematocrit (test code = 31.2 % 38.5-50 L ) MCV (test code = 101.3 fL 80-100 H ) MCH (test code = 33.4 pg 27-33 H ) MCHC (test code = 33.0 g/dL 32-36 ) RDW (test code = 13.1 % 11-15 ) Platelets (test code = 353 140- 278 8209651) Thousand/uL MPV (test code = 10.0 fL 7.5-12.5 3189707) # Neutros (test code = 3602 1,500 - 7,173 3812343) cells/uL # Lymphs (test code = 1189 850- 3,900 731-0) cells/uL # Monos (test code = 615 200- 950 cells/uL ) # Eos (test code = 325 15- 500 cells/uL 711-2) # Baso (test code = 70 0- 200 cells/uL 704-7) % Neutros (test code = 62.1 % ) % Lymphs (test code = 20.5 % 20200214) % Monos (test code = 10.6 % ) % Eos (test code = 5.6 % 20200212) % Baso (test code = 1.2 % 20200213) RAC (test code = RAC) Performing Organization Information: Site ID: RGA Name: [facility] Address: [address] [place] [phone] Director: Herve Stringer Lab Interpretation Abnormal (test code = 28539-6) [facility]th[facility] time/[id number] 03:49:00 Test Item Value Reference Range Interpretation Comments INR (test 0.9 Reference Range code = 8862738) 0.9-1.1Moderate -inte nsity Warfarin Therapy 2.0-3.0Higher-i ntens ity Warfarin Th erapy 3.0-4.0 PT (test code 9.8 9.0- 11.5 sec For more = 3494858) information on this test, go to:[email or web address] [employer] /[email or web address] RAC (test Performing code = RAC) Organization Information: Site ID: RGA Name[facility] Address: [address] [place] [phone] Director: Herve Stringer [facility] HospitalHereditary Hemochromatosis [id number] 11:40:00 Test Item Value Reference Interpretation Comments Range DNA Mutation see note DNA MUTATION AN ALYSIS Analysis (test RESULT: NEGAT YAKOV code = INTERPRETATION: DNA 5310846) testing indicat es that thisindividual is negative for the C282Y a nd H63D mutationsin the HFE gene. This negative r esult significantlyre duces the likelihood of h ereditary hemochromatosis (HH) in this individual . However, it does not rul e outthe presence of oth er mutations withi n the HFE gene ora diagno sis of HH. The risk of thi s individualcarry ing a HFE mutation other than those tested in thisa ssay depends greatly on family and clinical hi story aswell as [place]. This assay does not test for otherprimary or secondary iron overload d isorders. Gold crain, Ph.D., FACMGDir tahir, Molecular [employer] Hereditary hemo chromatosis (HH) is an autosomalrecess yakov disorder of iro n metabolism that results iniron overload and potential organ failure. It is oneof the most common genetic disorders in individuals [facility] ancestry, with an estimated sharath erfrequency of 10%. HH is caused by mutations in th e HFEgene. Most individual s with HH (60-90%) are ho mozygousfor the C282Y mutat ion. A smaller percent age ofaffected edyta viduals are either compound heterozygousfor the C282Y and H63D mutati ons (3%-8%), or beckie ozygousfor the H63D mutati on (approximately 1%). This assay detects t he two mutations in th e HFE gene,C282Y (NM_ 289153.2: c.845G>A) and H 63D (NM_000410.2: c .187C>G), that are common ly associated with HH. Themutations ar e detected by multiplex-po lymerase chainreaction ( PCR) amplification, followed by digestion ofthe amplification p roducts with the restri ction enzymesRsal and NlaIII, for the detecti on of the C282Y nreC38T m utations respectively. Fluorescent-lab eledrestric tion fragments are detected by capillaryelectr ophoresis. This assay does not detect other mutations in the HFEgene that ca n cause HH. Since genetic variation andother factor s can affect the accu racy of directmutation testing, these results s hould be interpretedin l ight of clinical and fa milial data. For oscar tance with interpretation of these results,please contact your local [facility] geneticcounselo r or call [phone] ([phone]). This test was developed and its analyticalperfo rmance characteristics have been determinedby [facility], [place], [place].It has not b een cleared or approved by the FDA. Thisassay has b een validated pursu ant to the CLIAregulations and is used for clinic al purposes. For more information on this test, go tohttp://educat ion.[facility].Unpakt/f aq/marianna GÓMEZ (test code Performing Lab = RICO) [address] [facility], [address] [address] [facility] [place] [address] Jacoby Cui MD, PhD [facility] Hospital[facility]I-MITOCHONDRIAL AB, REFLEX TO [id number] 08:17:00 Test Item Value Reference Range Interpretation Comments SCAN RESULT (test code = 9695633) Anti-Mitochondrial Ab, reflex to [id number] 08:17:00Scan ResultQUEST DIAGNOSTIC INCORPORATEDU.S. Naval HospitalActin (Smooth Muscle) Antibody, [id number] 23:40:00 Test Item Value Reference Range Interpretation Comments Anti-Smooth <20 See Note: U Reference Range :<20 Muscle Ab NEGATIVE> O R = 20 (test code = POSITIVE Antibo dies ) recognizing act in are the main compon entof smooth muscle antibodies asso ciated withautoimmune liver disease. Actin antibodies aref ound in approximatel y 75% of patients withautoimmune hepatitis (AIH) type 1, approximatel y65% of patients wit h autoimmune cholangitis,omar roxima tely 30% of pat ients with primary biliarycirrhosi s, and approximately 2 % of healthy people. High values are clos becky correlated with AIH type 1. RICO (test code Performing Lab = RICO) [facility] [employer] [address] [address] John Macias MD, PhD, MANOLO [facility] HospitalZinc2020-04-11 16:36:00 Test Item Value Reference Interpretation Comments Range Zinc (test code = 53 60- 130 mcg/dL L This te st was ) developed and i ts analytical performance characteristics have been determined by [facility]. It galdamez s not been cleared or approved by the USFood and Drug Administration. This assay has been validated pursu ant to the CLIA regula tions and is used for clinical purpos es. RICO (test code = Performing Lab RICO) *[facility] [address] [facility], [address] [place] [address] Lily Saravia MD, PhD Lab Interpretation Abnormal (test code = 44740-7) [facility] HospitalCeruloplasmin2020-04-11 13:32:00 Test Item Value Reference Range Interpretation Comments Ceruloplasmin (test 17 mg/dL 18-36 L Adults: code = 4787909) Males: 18-36 mg/dL Females: 18-53 mg/dL Pediatrics: Males (mg/dL) Females (mg/dL)-------- --- - 0-30 Days 8-25 3-28 31 Days-11 Month 15-48 15-43 1-3 Years 25-56 29-54 4-6 Years 29-56 26-54 7-9 Years 25-52 23-48 10-12 Years 21-51 21-48 13-15 Years 20-50 21-46 16-18 Years 20-45 22-50 The pediatric ranges are derived from the following criteria: Chelain SJ, Narinder JM, Yaneth J et al Pediatric reference ranges for Pugg-7-Vmdkwslc bulin and ceruloplasmin. Clin. Chem 1997; 43:S1999 Pediatric Reference Ranges, 2nd., SF Doryet al. editors. [employer], [place], [place] 1997. RICO (test code = RICO) Performing Lab *[facility], [address] [place] [id number] Lily Saravia MD, PhD Lab Interpretation Abnormal (test code = 93451-4) [facility] HospitalMitochondrial Ab [id number] 13:29:00 Test Item Value Reference Range Interpretation Comments Anti-Mitocho NEGATIVE NEGATIVE This test was developed nd Abs (test and its analyti sherwin code = performance 8701873) characteristics havebeen determined by [facility].It h as not been cleared or approved by FDA. This as say has been validatedp ursuant to the CLIA reg ulations and is used for clinical purposes. RICO (test Performing Lab code = RICO) [facility] [address] [place] [address] John Macias MD, PhD, MANOLO [facility] HospitalMitochondrial Ab [id number] 13:29:00 Test Item Value Reference Range Interpretation Comments Mitochondrial Ab TNP <1:20 Test Not Titer (test code = Performed . 7649747) Screening test Negative or Not Detected. Titer notperformed. RICO (test code = Performing Lab RICO) [facility]Z [facility] [address] [address] [place] [address] John Macias MD, PhD, MANOLO [facility] Antibody (GUNNAR)2019-11-03 02:32:00 Test Item Value Reference Range Interpretation Comments GUNNAR (test code = 77546-1) Negative Negative RICO (test code = RICO) Test performed by IFA method.Test performed by IFA method. Lab Interpretation (test Normal code = 52802-7) [facility] HospitalANTI[facility]NUCLEAR ANTIBODY (GUNNAR)2019-11-03 02:32:00 Test Item Value Reference Range Interpretation Comments ANTI-NUCLEAR ANTIBODY (GUNNAR) (BEAKER) Negative Negative (test code = 418) Test performed by IFA method.Test performed by IFA method.POC-Glucose meter 2019-11-02 09:08:00 Test Item Value Reference Range Interpretation Comments POC-Glucose Meter (test 115 mg/dL 70-110 H : TE STED AT [facility] code = 1538) [address] [facility], 770 30: Supervisor Tumbling And Rolling/Techni halie ID = [id number] for Humberto Erin eliz Lab Interpretation (test Abnormal code = 98315-4) [facility]SE [id number] 09:08:00 Test Item Value Reference Range Interpretation Comments POC-GLUCOSE METER 115 mg/dL 70-110 H : TESTED A T [facility] 6720 (BEAKER) (test code = BERTTYSHAWN R [facility], 1538) [address]: Supervisor Tumbling And Rolling/Techni halie ID = [id number] for Sri Wild Comprehensive metabolic [id number] 05:06:00 Test Item Value Reference Range Interpretation Comments Protein, Total (test 5.6 6.0- 8.3 gm/dL L code = 2885-2) Albumin (test code = 2.7 g/dL 3.5-5 L 63815-8) Alkaline Phosphatase 401 U/L 40-150 H (test code = 6768-6) Total Bilirubin (test 3.1 mg/dL 0.2-1.2 H code = 1975-2) Sodium (test code = 135 meq/L 136-145 L 2951-2) Potassium (test code 4.8 meq/L 3.5-5.1 = 2823-3) Chloride (test code = 102 meq/L 98-107 2075-0) CO2 (test code = 23 meq/L 22-29 8-9) BUN (test code = 8 mg/dL 7-21 3094-0) Creatinine (test code 0.84 mg/dL 0.57-1.25 = 2160-0) Glucose (test code = 118 mg/dL 70-105 H 2345-7) Calcium (test code = 8.0 mg/dL 8.4-10.2 L 04576-5) AST (test code = 147 U/L 5-34 H 1920-8) ALT (test code = 84 U/L 6-55 H 1742-6) EGFR (test code = 97 mL/min/1.73 [place] [address]-5) NOT ACCURATE CREATININE CLEARANCE IN PREDICTING GLOMERULAR FILTRATION RATE . ESTIMATED GFR I S NOT APPLICABLE FOR DIALYSIS PATIENTS. RICO (test code = RICO) Supervisor Tumbling And Rolling JESUS Deanna FLORES WSpecimen slightly icteric Lab Interpretation Abnormal (test code = 00877-8) [facility] HospitalMagnesium2020-04-10 05:06:00 Test Item Value Reference Range Interpretation Comments Magnesium (test code = 1.8 mg/dL 1.6-2.6 67361-3) RICO (test code = RICO) Supervisor Tumbling And Rolling ID Deanna FLORES W Lab Interpretation (test Normal code = 53698-4) [facility] HospitalPhosphorus2020-04-10 05:06:00 Test Item Value Reference Range Interpretation Comments Phosphorus (test code = 2.9 mg/dL 2.3-4.7 2777-1) RICO (test code = RICO) Supervisor Tumbling And Rolling ID Deanna FLORES W Lab Interpretation (test Normal code = 31673-4) [facility] HospitalPHOSPHORUS2020-04-10 05:06:00 Test Item Value Reference Range Interpretation Comments PHOSPHORUS (BEAKER) (test code = 2.9 mg/dL 2.3-4.7 604) Supervisor Tumbling And Rolling JESUS FLORES [id number] 05:06:00 Test Item Value Reference Range Interpretation Comments MAGNESIUM (BEAKER) (test code = 1.8 mg/dL 1.6-2.6 627) Supervisor Tumbling And Rolling JESUS Deanna KATHLEENNA WCOMPREHENSIVE METABOLIC [id number] 05:06:00 Test Item Value Reference Range Interpretation Comments TOTAL PROTEIN 5.6 gm/dL 6.0-8.3 L (BEAKER) (test code = 770) ALBUMIN (BEAKER) 2.7 g/dL 3.5-5.0 L (test code = 1145) ALKALINE PHOSPHATASE 401 U/L 40-150 H (BEAKER) (test code = 346) BILIRUBIN TOTAL 3.1 mg/dL 0.2-1.2 H (BEAKER) (test code = 377) SODIUM (BEAKER) (test 135 meq/L 136-145 L code = 381) POTASSIUM (BEAKER) 4.8 meq/L 3.5-5.1 (test code = 379) CHLORIDE (BEAKER) 102 meq/L 98-107 (test code = 382) CO2 (BEAKER) (test 23 meq/L 22-29 code = 355) BLOOD UREA NITROGEN 8 mg/dL 7-21 (BEAKER) (test code = 354) CREATININE (BEAKER) 0.84 mg/dL 0.57-1.25 (test code = 358) GLUCOSE RANDOM 118 mg/dL 70-105 H (BEAKER) (test code = 652) CALCIUM (BEAKER) 8.0 mg/dL 8.4-10.2 L (test code = 697) AST (SGOT) (BEAKER) 147 U/L 5-34 H (test code = 353) ALT (SGPT) (BEAKER) 84 U/L 6-55 H (test code = 347) EGFR (BEAKER) (test 97 mL/min/1.73 ESTIMA ESTUARDO GFR IS code = 1092) sq m NOT ACCURATE CREATININE CLEARANCE IN PREDICTING GLOMERULAR FILTRATION RATE . ESTIMATED GFR I S NOT APPLICABLE FOR DIALYSIS PATIEN TS. Supervisor Tumbling And Rolling ID - SANDRA WSpecimen slightly ictericCBC (Hemogram only)2019-11-02 04:43:00 Test Item Value Reference Range Interpretation Comments WBC (test code = 6690-2) 5.2 3.5- 10.5 K/L RBC (test code = 789-8) 2.69 4.63- 6.08 M/L L MCHC (test code = 786-4) 32.9 32.3- 36.5 GM/DL L Hematocrit (test code = 4544-3) 28.9 % 40.1-51 L MCV (test code = 787-2) 107.4 fL 79-92.2 H MCH (test code = 785-6) 35.3 pg 25.7-32.2 H RDW (test code = 788-0) 14.8 % 11.6-14.4 H Platelets (test code = 777-3) 148 150- 450 K/CU MM L MPV (test code = 45291-2) 11.3 fL 9.4-12.4 nRBC (test code = 413) 0 0- 0 /100 WBC Lab Interpretation (test code = Abnormal 64633-6) [place] [facility] (HEMOGRAM ONLY)2019-11-02 04:43:00 Test Item Value Reference Range Interpretation Comments WHITE BLOOD CELL COUNT (BEAKER) 5.2 K/ L 3.5-10.5 (test code = 775) RED BLOOD CELL COUNT (BEAKER) 2.69 M/ L 4.63-6.08 L (test code = 761) HEMOGLOBIN (BEAKER) (test code = 9.5 GM/DL 13.7-17.5 L 410) HEMATOCRIT (BEAKER) (test code = 28.9 % 40.1-51.0 L 411) MEAN CORPUSCULAR VOLUME (BEAKER) 107.4 fL 79.0-92.2 H (test code = 753) MEAN CORPUSCULAR HEMOGLOBIN 35.3 pg 25.7-32.2 H (BEAKER) (test code = 751) MEAN CORPUSCULAR HEMOGLOBIN CONC 32.9 GM/DL 32.3-36.5 (BEAKER) (test code = 752) RED CELL DISTRIBUTION WIDTH 14.8 % 11.6-14.4 H (BEAKER) (test code = 412) PLATELET COUNT (BEAKER) (test 148 K/CU MM 150-450 L code = 756) MEAN PLATELET VOLUME (BEAKER) 11.3 fL 9.4-12.4 (test code = 754) NUCLEATED RED BLOOD CELLS 0 /100 WBC 0-0 (BEAKER) (test code = 413) POCT-GLUCOSE [id number] 22:50:00 Test Item Value Reference Range Interpretation Comments POC-GLUCOSE METER 155 mg/dL 70-110 H : TESTED A T [facility] 6720 (BEAKER) (test code = [place], 1538) [address]: Supervisor Tumbling And Rolling/Techni halie ID = [id number] for AN BEATRIZ CAMPOS POCT-GLUCOSE [id number] 19:10:00 Test Item Value Reference Range Interpretation Comments POC-GLUCOSE METER 99 mg/dL 70-110 : TESTED A T [facility] 6720 (BEAKER) (test code = CECILE [place] [facility], 1538) [address]: Supervisor Tumbling And Rolling/Techni halie ID = [id number] for MILLER S, TABITHA POCT-GLUCOSE [id number] 19:00:00 Test Item Value Reference Range Interpretation Comments POC-GLUCOSE METER 148 mg/dL 70-110 H : TESTED A T [facility] 6720 (BEAKER) (test code = [facility] Eliz [facility], 1538) [address]: Supervisor Tumbling And Rolling/Techni halie ID = [id number] for RA MOS, TABITHA FL, [id number] 12:00:00Reason for exam:->bile duct obstructionFINAL REPORT A fluoroscopic unit was utilized for a procedure performed in the operating room. No interpretation was requested. Please refer to the operative report regarding findings. Please refer to PACS for patient radiation dose information. Signed: Paulette Montiel Verified Date/Time: 11/01/2019 12:00:41 Reading Location: [facility] Reading Room [place] Endoscopic Retrograde [id number] 12:00:00Interface, External Ris In - 11/01/2019 12:02 PM CDTFINAL REPORT A fluoroscopic unit was utilized for a procedure performed in the operating room. No interpretation was requested. Please refer to the operative report regarding findings. Please refer to PACS for patient radiationdose information. Signed: Paulette Montiel Verified Date/Time: 11/01/2019 12:00:41 Reading L ocation: [facility] [id number] 06:31:00 Test Item Value Reference Range Interpretation Comments POC-GLUCOSE METER 89 mg/dL 70-110 : TESTED A T [facility] 6720 (BEAKER) (test code = [place], 1538) [address]: Supervisor Tumbling And Rolling/Techni halie ID = [id number] for BEATRIZ SCHUMACHER Lipid [id number] 05:53:00 Test Item Value Reference Range Interpretation Comments Triglycerides (test 324 mg/dL code = 2571-8) Cholesterol (test code 454 mg/dL = 2093-3) HDL (test code = 26 mg/dL 2085-9) LDL Calculated (test 363 mg/dL code = 89221-1) RICO (test code = RICO) Triglyceride Reference Range: Low Risk <150 Borderline 150-199 High Risk 200-499 Very High Risk >=500 Cholesterol Reference Range: Low Risk <200 Borderline 200-239 High Risk >240 HDL Cholesterol Reference Range: Low Risk >=60 High Risk <40 LDL Cholesterol Reference Range: Optimal <100 Near Optimal 100-129 Borderline 130-159 High 160-189 Very High >=190 Supervisor Tumbling And Rolling ID Deanna LIZARRAGA LSpecimen slightly icteric [facility] HospitalFerritin2020-04-09 05:53:00 Test Item Value Reference Range Interpretation Comments Ferritin (test code = 960.19 ng/mL 5-275 H 2276-4) RICO (test code = RICO) Supervisor Tumbling And Rolling ID Deanna LIZARRAGA L Lab Interpretation (test Abnormal code = 50056-2) [facility] HospitalFERRITIN2020-04-09 05:53:00 Test Item Value Reference Range Interpretation Comments FERRITIN (BEAKER) (test code = 960.19 ng/mL 5.00-275.00 H 361) Supervisor Tumbling And Rolling ID - ELHAM LLIPID [id number] 05:53:00 Test Item Value Reference Range Interpretation Comments TRIGLYCERIDES (BEAKER) (test code = 324 mg/dL 540) CHOLESTEROL (BEAKER) (test code = 454 mg/dL 631) HDL CHOLESTEROL (BEAKER) (test code 26 mg/dL = 976) LDL CHOLESTEROL CALCULATED (BEAKER) 363 mg/dL (test code = 633) Triglyceride Reference Range: Low Risk <150 Borderline 150-199 High Risk 200-499 Very High Risk >=500Cholesterol Reference Range: Low Risk <200 Borderline 200-239 High Risk >240HDL Cholesterol Reference Range: Low Risk >=60 High Risk <40LDL Cholesterol Reference Range: Optimal <100 Near Optimal 100-129 Borderline 130-159 High 160-189 Very High >=190 Supervisor Tumbling And Rolling ID - ELHAMLOperator ID Deanna ELHAM LSpecimen slightly icteric Hepatitis B surface [id number] 05:19:00 Test Item Value Reference Range Interpretation Comments Hep B S Ab (test code = <8.0 <8.0 mIU/mL 78946-7) RICO (test code = RICO) Supervisor Tumbling And Rolling ID - ELHAM L Lab Interpretation (test Normal code = 17435-5) [facility] HospitalHEPATITIS B SURFACE [id number] 05:19:00 Test Item Value Reference Range Interpretation Comments HEPATITIS B SURFACE ANTIBODY < mIU/mL <8.0 (BEAKER) (test code = 647) Supervisor Tumbling And Rolling ID - ELHAM LVitamin B12 and [id number] 05:15:00 Test Item Value Reference Range Interpretation Comments Vitamin B12 (test code = 1049 pg/mL 213-816 H 2132-9) Folate (test code = 14.30 ng/mL >=7.00 2284-8) RICO (test code = RICO) Supervisor Tumbling And Rolling ID - EMILTOREY L Lab Interpretation (test Abnormal code = 80330-5) [facility] HospitalVITAMIN B12 AND [id number] 05:15:00 Test Item Value Reference Range Interpretation Comments VITAMIN B12 (BEAKER) (test code = 1049 pg/mL 213-816 H 774) FOLATE (BEAKER) (test code = 362) 14.30 ng/mL >=7.00 Supervisor Tumbling And Rolling ID - ELHAM LHepatitis panel, [id number] 04:58:00 Test Item Value Reference Range Interpretation Comments Hep A IgM (test code = Nonreactive Nonreactive 81891-9) Hep B C IgM (test code = Nonreactive Nonreactive 05102-3) Hepatitis C Ab (test Nonreactive Nonreactive code = 32174-2) HBsAg Screen (test code Nonreactive Nonreactive = 5195-3) RICO (test code = RICO) Supervisor Tumbling And Rolling ID - EMILTOREY L Lab Interpretation (test Normal code = 37180-1) [facility] HospitalHepatitis A antibody, [id number] 04:58:00 Test Item Value Reference Range Interpretation Comments Hep A IgG (test code = Nonreactive Nonreactive 37118-6) RICO (test code = RICO) Supervisor Tumbling And Rolling ID Deanna LIZARRAGA L Lab Interpretation (test Normal code = 25147-0) [facility] HospitalHEPATITIS PANEL, [id number] 04:58:00 Test Item Value Reference Range Interpretation Comments HEPATITIS A IGM ANTIBODY (BEAKER) Nonreactive Nonreactive (test code = 498) HEPATITIS B CORE IGM ANTIBODY Nonreactive Nonreactive (BEAKER) (test code = 645) HEPATITIS C ANTIBODY (BEAKER) Nonreactive Nonreactive (test code = 367) HEPATITIS B SURFACE ANTIGEN (2) Nonreactive Nonreactive (BEAKER) (test code = 2585) Supervisor Tumbling And Rolling ID Deanna EMILTOREY LHEPATITIS A ANTIBODY, [id number] 04:58:00 Test Item Value Reference Range Interpretation Comments HEPATITIS A IGG ANTIBODY (BEAKER) Nonreactive Nonreactive (test code = 2797) Supervisor Tumbling And Rolling ID - ELHAM LBilirubin, [id number] 04:43:00 Test Item Value Reference Range Interpretation Comments Bilirubin, Direct (test 2.4 mg/dL 0.1-0.5 H code = 1968-7) RICO (test code = RICO) Supervisor Tumbling And Rolling ID - ELHAM L Lab Interpretation (test Abnormal code = 63478-7) [facility] HospitalPHOSPHORUS2020-04-09 04:43:00 Test Item Value Reference Range Interpretation Comments PHOSPHORUS (BEAKER) (test code = 2.8 mg/dL 2.3-4.7 604) Supervisor Tumbling And Rolling ID - ELHAM [id number] 04:43:00 Test Item Value Reference Range Interpretation Comments MAGNESIUM (BEAKER) (test code = 1.7 mg/dL 1.6-2.6 627) Supervisor Tumbling And Rolling ID - ELHAM LCOMPREHENSIVE METABOLIC [id number] 04:43:00 Test Item Value Reference Range Interpretation Comments TOTAL PROTEIN 5.4 gm/dL 6.0-8.3 L (BEAKER) (test code = 770) ALBUMIN (BEAKER) 2.6 g/dL 3.5-5.0 L (test code = 1145) ALKALINE PHOSPHATASE 414 U/L 40-150 H (BEAKER) (test code = 346) BILIRUBIN TOTAL 4.0 mg/dL 0.2-1.2 H (BEAKER) (test code = 377) SODIUM (BEAKER) (test 134 meq/L 136-145 L code = 381) POTASSIUM (BEAKER) 4.0 meq/L 3.5-5.1 (test code = 379) CHLORIDE (BEAKER) 101 meq/L 98-107 (test code = 382) CO2 (BEAKER) (test 28 meq/L 22-29 code = 355) BLOOD UREA NITROGEN 9 mg/dL 7-21 (BEAKER) (test code = 354) CREATININE (BEAKER) 0.88 mg/dL 0.57-1.25 (test code = 358) GLUCOSE RANDOM 94 mg/dL 70-105 (BEAKER) (test code = 652) CALCIUM (BEAKER) 8.1 mg/dL 8.4-10.2 L (test code = 697) AST (SGOT) (BEAKER) 165 U/L 5-34 H (test code = 353) ALT (SGPT) (BEAKER) 86 U/L 6-55 H (test code = 347) EGFR (BEAKER) (test 92 mL/min/1.73 ESTIMA ESTUARDO GFR IS code = 1092) sq m NOT ACCURATE CREATININE CLEARANCE IN PREDICTING GLOMERULAR FILTRATION RATE . ESTIMATED GFR I S NOT APPLICABLE FOR DIALYSIS PATIEN TS. Supervisor Tumbling And Rolling JESUS LIZARRAGA LSpecimen slightly ictericBILIRUBIN, [id number] 04:43:00 Test Item Value Reference Range Interpretation Comments BILIRUBIN DIRECT (BEAKER) (test 2.4 mg/dL 0.1-0.5 H code = 706) Supervisor Tumbling And Rolling JESUS [place]oul[place], TIBC, % sat. (without ferritin)2019-11-01 04:40:00 Test Item Value Reference Range Interpretation Comments Iron (test code = 2498-4) 158.0 ug/dL 40-160 TIBC (test code = 2500-7) 158 ug/dL 250-450 L Iron % Saturation (test 100 % 20-55 H code = 2502-3) RICO (test code = RICO) Supervisor Tumbling And Rolling JESUS Ambrosio Lab Interpretation (test Abnormal code = 54079-4) [facility] HospitalIRON, TIBC, % SAT. (WITHOUT FERRITIN)2019-11-01 04:40:00 Test Item Value Reference Range Interpretation Comments IRON (BEAKER) (test code = 547) 158.0 ug/dL 40.0-160.0 TOTAL IRON BINDING CAPACITY 158 ug/dL 250-450 L (BEAKER) (test code = 769) IRON % SATURATION (2) (BEAKER) 100 % 20-55 H (test code = 2590) Supervisor Tumbling And Rolling ID Deanna LIZARRAGA LImmunoglobulin G (IgG)2019-11-01 04:35:00 Test Item Value Reference Range Interpretation Comments IgG (test code = 2465-3) 1111 mg/dL 540-1822 RICO (test code = RICO) Supervisor Tumbling And Rolling ID - ELHAM L Lab Interpretation (test Normal code = 48538-3) [facility] HospitalIMMUNOGLOBULIN G (IGG)2019-11-01 04:35:00 Test Item Value Reference Range Interpretation Comments IMMUNOGLOBULIN G (IGG) (BEAKER) 1111 mg/dL 540-1,822 (test code = 427) Supervisor Tumbling And Rolling ID Deanna LIZARRAGA [id number] 04:34:00 Test Item Value Reference Range Interpretation Comments A-1 Antitrypsin (test code 134.50 mg/dL 90-200 = 1825-9) RICO (test code = RICO) Supervisor Tumbling And Rolling ID Deanna LIZARRAGA L Lab Interpretation (test Normal code = 40145-9) [facility] HospitalALPHA-1-[id number] 04:34:00 Test Item Value Reference Range Interpretation Comments ALPHA-1 ANTITRYPSIN (BEAKER) 134.50 mg/dL 90.00-200.00 (test code = 502) Supervisor Tumbling And Rolling ID Deanna LIZARRAGA LPROTHROMBIN [id number] 04:18:00 Test Item Value Reference Range Interpretation Comments PROTIME (BEAKER) (test code = 13.3 seconds 11.9-14.2 759) INR (BEAKER) (test code = 370) 1.0 <=5.9 Effective 12/20/2018: PT Reference Range ChangeNew: 11.9-14.2 Previous: 11.7- 14.7RECOMMENDED COUMADIN/WARFARIN INR THERAPY RANGESSTANDARD DOSE: 2.0-3.0 Includes: PROPHYLAXIS for venous thrombosis, systemic embolization; TREATMENT for venous thrombosis and/or pulmonary embolus.HIGH RISK: Target INR is2.5-3.5 for patients wiht mechanical heart valves.CBC (HEMOGRAM ONLY)2019-11-01 04:14:00 Test Item Value Reference Range Interpretation Comments WHITE BLOOD CELL COUNT (BEAKER) 3.8 K/ L 3.5-10.5 (test code = 775) RED BLOOD CELL COUNT (BEAKER) 2.92 M/ L 4.63-6.08 L (test code = 761) HEMOGLOBIN (BEAKER) (test code = 9.7 GM/DL 13.7-17.5 L 410) HEMATOCRIT (BEAKER) (test code = 30.3 % 40.1-51.0 L 411) MEAN CORPUSCULAR VOLUME (BEAKER) 103.8 fL 79.0-92.2 H (test code = 753) MEAN CORPUSCULAR HEMOGLOBIN 33.2 pg 25.7-32.2 H (BEAKER) (test code = 751) MEAN CORPUSCULAR HEMOGLOBIN CONC 32.0 GM/DL 32.3-36.5 L (BEAKER) (test code = 752) RED CELL DISTRIBUTION WIDTH 14.9 % 11.6-14.4 H (BEAKER) (test code = 412) PLATELET COUNT (BEAKER) (test 146 K/CU MM 150-450 L code = 756) MEAN PLATELET VOLUME (BEAKER) 10.7 fL 9.4-12.4 (test code = 754) NUCLEATED RED BLOOD CELLS 0 /100 WBC 0-0 (BEAKER) (test code = 413) POCT-GLUCOSE [id number] 23:20:00 Test Item Value Reference Range Interpretation Comments POC-GLUCOSE METER 112 mg/dL 70-110 H : TESTED A T [facility] 6720 (BEAKER) (test code = [place], 1538) [address]: Supervisor Tumbling And Rolling/Techni halie ID = [id number] for AN BEATRIZ CAMPOS, [id number] 11:15:00 Test Item Value Reference Range Interpretation Comments ABO Grouping (test code = 2588) O Rh Factor (test code = 2589) POS [facility] HospitalMR, [facility]BDOMEN, [id number] 09:36:00FINAL REPORT TECHNIQUE: MRI of the abdomen and MRCP WITHOUT intravenous contrast. 3-D volume reconstructions were obtained to evaluate the biliary ductal system. INDICATION: Outside imaging with gallstones, no comment on CBD size with elevated LFTs. Eval for choledoch. COMPARISON: None. FINDINGS: ABSENCE OF INTRAVENOUS CONTRAST DECREASES SENSITIVITY FOR DETECTION OF FOCAL LESIONS AND VASCULAR PATHOLOGY. LOWER THORAX: Unremarkable. LIVER: Diffuse loss of signal in the liver onout of phase imaging. No focal hepatic lesions. BILIARY: A few tiny stones layering the gallbladder.The gallbladder is distended but without wall thickening. No biliary ductal dilatation or filling defect. The common bile duct measures 0.5 cm in diameter. There is a questionable filling defect in thedistal common bile duct seen only on the MRCP images which measures 0.2 cm on image 38 SPLEEN: No splenomegaly.PANCREAS: No focal masses or ductal dilatation. ADRENALS: No adrenal nodules.KIDNEYS/URETERS: No hydronephrosis or solid mass lesions. Simple renal cysts measure 3.7 cm in the left upper poleand 0.6 cm in the left lower pole. No routine follow-up imaging is recommended. PERITONEUM/RETROPERITONEUM: No free fluid.LYMPH NODES: No lymphadenopathy.VESSELS: Unremarkable. GI TRACT: No distention or wall thickening. BONES AND SOFT TISSUES: Grade 1 anterolisthesis of L5 on S1. IMPRESSION: 1.Thereis a questionable filling defect in the distal common bile duct which measures 0.2 cm. 2.Cholelithiasis with gallbladder distention but no gallbladder wall thickening or significant pericholecystic inflammation. 3.Diffuse fatty infiltration of the liver. Signed: Dina Gaines MDReport Verified Date/Time: 10/31/2019 09:36:55 Reading Location: [facility] Diagnostic Imaging Reading Room - [place] [address] MR abdomen without IV contrast [id number] 09:36:00 Interface, External Ris In - 10/31/2019 9:39 AM CDTFINAL REPORT TECHNIQUE: MRI of the abdomen and MRCP WITHOUT intravenous contrast. 3- D volume reconstructions were obtained to evaluate the biliary ductal system. INDICATION: Outside imaging with gallstones, no comment on CBD size with elevated LFTs. Eval for choledoch. COMPARISON: None. FINDINGS: ABSENCE OF INTRAVENOUS CONTRAST DECREASES SENSITIVITY FOR DETECTION OF FOCAL LESIONS AND VASCULAR PATHOLOGY. LOWER THORAX: Unremarkable. LIVER: Diffuse loss of signal in the liver on out of phase imaging. No focal hepatic lesions. BILIARY: A few tiny stones layering the gallbladder. The gallbladder is distended but without wall thickening. No biliary ductal dilatation or filling defect. The common bile duct measures 0.5 cm in diameter. There is a questionable filling defect in the distal common bile duct seen only on the MRCP images which measures 0.2 cm on image 38 SPLEEN: No splenomegaly.PANCREAS: No focal masses or ductal dilatation. ADRENALS: No adrenal nodules.KIDNEYS/URETERS: No hydronephrosis or solid mass lesions. Simple renal cysts measure 3.7 cm in the left upper pole and 0.6 cm in the left lower pole. No routine follow-up imaging is recommended. PERITONEUM/RETROPERITONEUM: No free fluid.LYMPH NODES: No lymphadenopa thy.VESSELS: Unremarkable. GI TRACT: No distention or wall thickening. BONES AND SOFT TISSUES: Grade1 anterolisthesis of L5 on S1. IMPRESSION: 1.There is a questionable filling defect in the distal common bile duct which measures 0.2 cm. 2.Cholelithiasis with gallbladder distention but no gallbladder wall thickening or significant pericholecystic inflammation. 3.Diffuse fatty infiltration of the liver. Signed: Dina Gaines Verified Date/Time: 10/31/2019 09:36:55 Reading Location: [facility] Diagnostic Imaging Reading Room - [place] [address] [facility] [id number] 06:12:00 Test Item Value Reference Range Interpretation Comments POC-GLUCOSE METER 96 mg/dL 70-110 : TESTED A T [facility] 6720 (BEAKER) (test code = GAELTYSHAWN [place] [facility], 1538) [address]: Supervisor Tumbling And Rolling/Techni halie ID = [id number] for KOLE NEWBERRY [id number] 03:19:00 Test Item Value Reference Range Interpretation Comments PTT (test code = 49234-9) 32.1 22.5- 36.0 seconds Lab Interpretation (test code = Normal 12833-0) [facility] HospitalPROTHROMBIN TIME/[id number] 03:19:00 Test Item Value Reference Range Interpretation Comments PROTIME (BEAKER) (test code = 15.1 seconds 11.9-14.2 H 759) INR (BEAKER) (test code = 370) 1.2 <=5.9 Effective 12/20/2018: PT Reference Range ChangeNew: 11.9-14.2 Previous: 11.7- 14.7RECOMMENDED COUMADIN/WARFARIN INR THERAPY RANGESSTANDARD DOSE: 2.0-3.0 Includes: PROPHYLAXIS for venous thrombosis, systemic embolization; TREATMENT for venous thrombosis and/or pulmonary embolus.HIGH RISK: Target INR is2.5-3.5 for patients wiht mechanical heart valves.[id number] 03:19:00 Test Item Value Reference Range Interpretation Comments PARTIAL THROMBOPLASTIN TIME 32.1 seconds 22.5-36.0 (BEAKER) (test code = 760) BASIC METABOLIC [id number] 03:17:00 Test Item Value Reference Range Interpretation Comments SODIUM (BEAKER) 131 meq/L 136-145 L (test code = 381) POTASSIUM (BEAKER) 4.5 meq/L 3.5-5.1 (test code = 379) CHLORIDE (BEAKER) 99 meq/L 98-107 (test code = 382) CO2 (BEAKER) (test 24 meq/L 22-29 code = 355) BLOOD UREA NITROGEN 17 mg/dL 7-21 (BEAKER) (test code = 354) CREATININE (BEAKER) 0.97 mg/dL 0.57-1.25 (test code = 358) GLUCOSE RANDOM 102 mg/dL 70-105 (BEAKER) (test code = 652) CALCIUM (BEAKER) 8.3 mg/dL 8.4-10.2 L (test code = 697) EGFR (BEAKER) (test 82 mL/min/1.73 ESTIMA ESTUARDO GFR IS code = 1092) sq m NOT ACCURATE CREATININE CLEARANCE IN PREDICTING GLOMERULAR FILTRATION RATE . ESTIMATED GFR I S NOT APPLICABLE FOR DIALYSIS PATIEN TS. Specimen moderately ictericCOMPREHENSIVE METABOLIC [id number] 03:17:00 Test Item Value Reference Range Interpretation Comments TOTAL PROTEIN 5.6 gm/dL 6.0-8.3 L (BEAKER) (test code = 770) ALBUMIN (BEAKER) 2.7 g/dL 3.5-5.0 L (test code = 1145) ALKALINE PHOSPHATASE 458 U/L 40-150 H (BEAKER) (test code = 346) BILIRUBIN TOTAL 4.8 mg/dL 0.2-1.2 H (BEAKER) (test code = 377) SODIUM (BEAKER) (test 131 meq/L 136-145 L code = 381) POTASSIUM (BEAKER) 4.5 meq/L 3.5-5.1 (test code = 379) CHLORIDE (BEAKER) 99 meq/L 98-107 (test code = 382) CO2 (BEAKER) (test 24 meq/L 22-29 code = 355) BLOOD UREA NITROGEN 17 mg/dL 7-21 (BEAKER) (test code = 354) CREATININE (BEAKER) 0.97 mg/dL 0.57-1.25 (test code = 358) GLUCOSE RANDOM 102 mg/dL 70-105 (BEAKER) (test code = 652) CALCIUM (BEAKER) 8.3 mg/dL 8.4-10.2 L (test code = 697) AST (SGOT) (BEAKER) 185 U/L 5-34 H (test code = 353) ALT (SGPT) (BEAKER) 93 U/L 6-55 H (test code = 347) EGFR (BEAKER) (test 82 mL/min/1.73 ESTIMA ESTUARDO GFR IS code = 1092) sq m NOT ACCURATE CREATININE CLEARANCE IN PREDICTING GLOMERULAR FILTRATION RATE . ESTIMATED GFR I S NOT APPLICABLE FOR DIALYSIS PATIEN TS. Supervisor [employer] ID - THEO MSpecimen moderately ictericCBC with platelet count + automated [id number] 03:02:00 Test Item Value Reference Range Interpretation Comments WBC (test code = 6690-2) 4.4 3.5- 10.5 K/L RBC (test code = 789-8) 2.82 4.63- 6.08 M/L L MCHC (test code = 786-4) 34.1 32.3- 36.5 GM/DL L Hematocrit (test code = 4544-3) 29.0 % 40.1-51 L MCV (test code = 787-2) 102.8 fL 79-92.2 H MCH (test code = 785-6) 35.1 pg 25.7-32.2 H RDW (test code = 788-0) 15.6 % 11.6-14.4 H Platelets (test code = 777-3) 155 150- 450 K/CU MM MPV (test code = 02752-6) 10.8 fL 9.4-12.4 nRBC (test code = 413) 0 0- 0 /100 WBC % Neutros (test code = 429) 51 % % Lymphs (test code = 430) 35 % % Monos (test code = 431) 11 % % Eos (test code = 432) 3 % % Baso (test code = 437) 1 % # Neutros (test code = 670) 2.27 1.78- 5.38 K/L # Lymphs (test code = 414) 1.53 1.32- 3.57 K/L # Monos (test code = 415) 0.48 0.30- 0.82 K/L # Eos (test code = 416) 0.11 0.04- 0.54 K/L # Baso (test code = 417) 0.04 0.01- 0.08 K/L Immature Granulocytes-Relative 0 % 0-1 (test code = 2801) Lab Interpretation (test code = Abnormal 06102-1) [place] [facility] W/PLT COUNT & AUTO [id number] 03:02:00 Test Item Value Reference Range Interpretation Comments WHITE BLOOD CELL COUNT (BEAKER) 4.4 K/ L 3.5-10.5 (test code = 775) RED BLOOD CELL COUNT (BEAKER) 2.82 M/ L 4.63-6.08 L (test code = 761) HEMOGLOBIN (BEAKER) (test code = 9.9 GM/DL 13.7-17.5 L 410) HEMATOCRIT (BEAKER) (test code = 29.0 % 40.1-51.0 L 411) MEAN CORPUSCULAR VOLUME (BEAKER) 102.8 fL 79.0-92.2 H (test code = 753) MEAN CORPUSCULAR HEMOGLOBIN 35.1 pg 25.7-32.2 H (BEAKER) (test code = 751) MEAN CORPUSCULAR HEMOGLOBIN CONC 34.1 GM/DL 32.3-36.5 (BEAKER) (test code = 752) RED CELL DISTRIBUTION WIDTH 15.6 % 11.6-14.4 H (BEAKER) (test code = 412) PLATELET COUNT (BEAKER) (test 155 K/CU MM 150-450 code = 756) MEAN PLATELET VOLUME (BEAKER) 10.8 fL 9.4-12.4 (test code = 754) NUCLEATED RED BLOOD CELLS 0 /100 WBC 0-0 (BEAKER) (test code = 413) NEUTROPHILS RELATIVE PERCENT 51 % (BEAKER) (test code = 429) LYMPHOCYTES RELATIVE PERCENT 35 % (BEAKER) (test code = 430) MONOCYTES RELATIVE PERCENT 11 % (BEAKER) (test code = 431) EOSINOPHILS RELATIVE PERCENT 3 % (BEAKER) (test code = 432) BASOPHILS RELATIVE PERCENT 1 % (BEAKER) (test code = 437) NEUTROPHILS ABSOLUTE COUNT 2.27 K/ L 1.78-5.38 (BEAKER) (test code = 670) LYMPHOCYTES ABSOLUTE COUNT 1.53 K/ L 1.32-3.57 (BEAKER) (test code = 414) MONOCYTES ABSOLUTE COUNT (BEAKER) 0.48 K/ L 0.30-0.82 (test code = 415) EOSINOPHILS ABSOLUTE COUNT 0.11 K/ L 0.04-0.54 (BEAKER) (test code = 416) BASOPHILS ABSOLUTE COUNT (BEAKER) 0.04 K/ L 0.01-0.08 (test code = 417) IMMATURE GRANULOCYTES-RELATIVE 0 % 0-1 PERCENT (BEAKER) (test code = 2801) POCT-GLUCOSE [id number] 00:35:00 Test Item Value Reference Range Interpretation Comments POC-GLUCOSE METER 89 mg/dL 70-110 : TESTED A T [facility] 6720 (BEAKER) (test code = [place], 1538) [address]: Supervisor [employer] Rolling/Techni halie ID = [id number] for KOLE NEWBERRY
--- OUTSIDE RECORDS SUMMARY | 2020-07-18 17:59 | XMS REPORT ---
:1970 Author Organization [facility] Address [address] [place], [address] [place] [address] Care Team Providers Name Role Phone Segovia Unavailable [phone] PROBLEMS Type Condition ICD9-CM PGM78-BA Onset Condition SNOMED Code Notes Code Code Dates Status Problem Morbid (severe) E66.01 Active 14326237516417 obesity due to excess calories Problem Mixed E78.2 Active 076702124 hyperlipidemia Problem Panic disorder F41.0 Active 052183730 [episodic paroxysmal anxiety] Problem Alcohol abuse F10.10 Active 36424467 Problem Generalized F41.1 Active 16277630 anxiety disorder Problem HTN, goal below I10 Active 83925748 140/90 Problem Insomnia, G47.00 Active 543692856 unspecified type Problem Dependence 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 Active 072729854 other enabling machines and devices Problem Type 2 diabetes E11.65 Active 28219072 mellitus with hyperglycemia, without long-term current use of insulin Problem Current moderate F32.1 Active 90271896 episode of major depressive disorder without prior episode Problem Asymptomatic K80.20 Active 38517977 gallstones Problem Body mass index Z68.41 Active 170228559 (BMI) 40.0-44.9, adult Problem Obstructive sleep G47.33 Active 82563113 apnea (adult) (pediatric) Problem Calculus of K80.20 Active 83173197 gallbladder without cholecystitis without obstruction Problem Alcoholic fatty K70.0 Active 23386149 liver Problem Hypocalcemia E83.51 Active 0429090 ALLERGIES Allergen (clinical drug Drug/Non Drug Allergy Reaction Allergy Type Onset Date Status ingredient) documented on EMR penicillin Unknown Drug Allergy Active ENCOUNTERS from 1970 to 2020-06-03 Encounter Location Date Provider Diagnosis [facility] [address] [place] [address] [place], [place] [id number] depressive dis order without prior episode F32.1 IMMUNIZATIONS Vaccine Route Administration Date Status Adacel [...] REASON FOR REFERRAL No Information VITAL SIGNS No information MEDICATIONS Medication SIG (Take, Route, Start Date End Date Status Frequency, Duration) Vitamin B-1 100 MG 1 tablet Orally Once a Active day Alprazolam 0.5 MG 1 tablet Orally PRN Act tammy Celexa 40 MG 1 tablet Orally Once a Activ e day for 90 days Trazodone HCl 100 MG 1 tablet at bedtime Active Orally Once a day for 30 days Trazodone HCl 100 MG 1 tablet at bedtime Active Orally Once a day for 30 Zinc Sulfate 220 (50 Zn) MG 1 capsule Orally Once a Active day Carvedilol 25 MG TAKE 1& 1/2 TABLERS BY A ctive MOUTH TWICE A DAY MAKE APPT FOR REFILLS for 90 Mens Multivitamin - as directed Orally Ac tive Atorvastatin Calcium 10 MG 1 tablet Orally Once a Active day for 90 Chlordiazepoxide HCl 25 MG (Schedule IV Drug) Not-Taking PLEASE SEE ATTACHED FOR DETAILED DIRECTIONS Oral for 3 Aspir-Low 81 MG 1 tablet Orally Once a Ac tive day Fenofibrate 54 MG 1 tablet with food Acti ve Orally Once a day for 90 Citalopram Hydrobromide 40 MG TAKE 1 TABLET BY MOUTH Active EVERY DAY for 90 Lisinopril 40 MG 1 tablet Orally Once a A ctive day for 90 PROCEDURES No Information RESULTS No Results REASON FOR VISIT Rx Celexa MEDICAL (GENERAL) HISTORY Type Description Date Medical [...] (BMI) 40.0-44.9, adult Surgical History Hemorroids 2004 Goals Section No Information Health Concerns No Information MEDICAL EQUIPMENT No Information MENTAL STATUS No Information FUNCTIONAL STATUS No Information ASSESSMENTS Encounter Date Diagnosis Notes May, Current moderate episode of major depres sive disorder without prior episode (ICD-10 - F32.1) PLAN OF TREATMENT Medication Medication Name Sig Start Date Stop Date Celexa 40 MG 1 tablet Orally Once a day for 90 days Fenofibrate 54 MG 1 tablet with food Orally Once a day for 90 Alprazolam 0.5 MG 1 tablet Orally PRN Trazodone HCl 100 MG 1 tablet at bedtime Orally Once a day for 30 days Atorvastatin Calcium 10 MG 1 tablet Orally Once a day for 90 Carvedilol 25 MG TAKE 1& 1/2 TABLERS BY MOUTH TWICE A DAY MAKE APPT FOR REFILLS for 90 Lisinopril 40 MG 1 tablet Orally Once a day for 90 Next Appt Details Provider Name:Leonardoevonne Segovia, 2020-06-09 0 1:40:00 PM, [address], [place], [address], Insurance Providers Payer Name Payer Payer Insured Name Patient Coverage Covera ge End Address Phone Relationship to Start Date Wayne e Insured [employer] [phone] Alexis,Ph self 2017 and [place] [id number] [facility] [id number]
[2020-07-18 18:39] LABS: Absolute Lymphocytes (CBC) 1.5 K/uL (0.7-4.9); Basophils % 1.1 % (0-1.3); Hematocrit 41.5 % (39.6-49.0); Lymphocytes % 16.3 % (15.3-44.8); MPV 8.7 fL (7.6-11.3); RBC Red Blood Cell Count 4.51 M/uL (4.33-5.43)
[2020-07-18 18:40] LABS: Protime INR 1.08
[2020-07-18 19:02] LABS: ALT/SGPT 56 U/L (12-78); AST/SGOT 58 U/L (15-37); Albumin 3.9 g/dL (3.4-5.0); Alkaline Phosphatase 98 U/L (45-117); BUN Blood Urea Nitrogen 21 mg/dL (7-18); Bicarbonate 26 mmol/L (21-32); Bilirubin Direct 0.3 mg/dL (0-0.2); Bilirubin Total 1.1 mg/dL (0.2-1.0); Glucose Level 104 mg/dL (74-106); Magnesium 2.4 mg/dL (1.8-2.4); NT PRO-BNP 25 pg/mL (<125); Potassium 4.4 mmol/L (3.5-5.1); Protein, Total 7.9 g/dL (6.4-8.2); Sodium Level 135 mmol/L (136-145); Troponin (Emerg Dept Use Only) < 0.02 ng/mL (0.0-0.045)
[2020-07-18] MEDS ORDERED: LORAZEPAM 1 MG TABLET ONE (19:04)
[2020-07-18] MEDS ORDERED: ASPIRIN 81 MG CHEWABLE TABLET ONE (19:04)
[2020-07-18] MEDS ORDERED: ONDANSETRON 4 MG/2 ML VIAL ONE (19:05)
[2020-07-18] MEDS ORDERED: MORPHINE 4 MG/ML SYR ONE (19:05)
--- NOTE | 2020-07-18 19:07 | RAD REPORT ---
EXAM DESCRIPTION: RAD - Chest Single View - 07/18/2020 6:37 pm CLINICAL HISTORY: CHEST PAIN Chest pain. COMPARISON: Chest Single View dated 10/30/2019; CHEST SINGLE VIEW dated 04/30/2014 FINDINGS: Portable technique limits examination quality. The lungs are grossly clear. The heart is normal in size. No displaced fractures. IMPRESSION: No acute intrathoracic process suspected.
--- NOTE | 2020-07-18 20:46 | ER ---
Nurse's Notes [facility] Name: Nahid Espinoza Age: 49 yrs Sex: Male : 1970 Arrival Date: 07/18/2020 Time: 17:53 Bed 2 Private MD: Diagnosis: Chest pain, unspecified Presentation: 07/18 18:12 Chief complaint: Patient states: constant chest pain that began this morning. Pt aa5 reports vomited once this morning. Denies cough or recent illness. Ebola Screen: Patient negative for fever greater than or equal to 101.5 degrees Fahrenheit, and additional compatible Ebola Virus Disease symptoms. Initial Sepsis Screen: Does the patient meet any 2 criteria? No. Patient's initial sepsis screen is negative. Does the patient have a suspected source of infection? No. Patient's initial sepsis screen is negative. Risk Assessment: Do you want to hurt yourself or someone else? Patient reports no desire to harm self or others. Onset of symptoms was June 2020. 18:12 Acuity: KATIE 3 aa5 18:12 Method Of Arrival: Wheelchair aa5 18:12 Coronavirus screen: vomiting. aa5 Historical: - Allergies: 18:14 PENICILLINS; rash; aa5 - PMHx: 18:14 High Cholesterol; Hypertension; aa5 - PSHx: 18:14 Hernia repair; aa5 - Immunization history:: Adult Immunizations unknown. - Social history:: Smoking status: unknown. Screenin:20 Abuse screen: Denies threats or abuse. Nutritional screening: No deficits noted. em Tuberculosis screening: No symptoms or risk factors identified. Fall Risk None identified. Assessment: 18:20 General: Appears uncomfortable, Behavior is calm, cooperative, appropriate for age. em Pain: Complains of pain in chest Pain does not radiate. Pain began this morning. Neuro: Level of Consciousness is awake, alert, obeys commands, Oriented to person, place, time, situation, Appropriate for age. Cardiovascular: Reports chest pain, shortness of breath, Capillary refill < 3 seconds Patient's skin is warm and dry. Rhythm is sinus rhythm. Respiratory: Airway is patent. GI: Abdomen is flat. Derm: Skin is intact, is healthy with good turgor, Skin is pink, warm \T\ dry. Musculoskeletal: Capillary refill < 3 seconds, Range of motion: intact in all extremities. 20:45 Reassessment: DYLON barragan at bedside assessing the patient. mg2 20:45 General: Appears in no apparent distress. Behavior is calm, cooperative, appropriate ea for age. Neuro: Level of Consciousness is awake, alert, obeys commands, Oriented to person, place, time, situation, Appropriate for age. Cardiovascular: Patient's skin is warm and dry. Respiratory: Airway is patent Respiratory effort is even, unlabored, Respiratory pattern is regular, symmetrical. Derm: Skin is pink, warm \T\ dry. 20:46 Reassessment: Hospitalist at bedside updating pt on plan of care. ea 22:40 Reassessment: Patient and/or family updated on plan of care and expected duration. Pain ea level reassessed. Patient is alert, oriented x 3, equal unlabored respirations, skin warm/dry/pink. pt admitted to second floor. Report called to receiving nurse on second floor. Pt left ED via wheelchair per tech, pt tolerating well. Vital Signs: 18:12 BP 118 / 79; Pulse 81; Resp 18 S; Temp 98.4(O); Pulse Ox 97% on R/A; aa5 20:45 BP 114 / 68; Pulse 76; Resp 18; Pulse Ox 98% on R/A; mg2 20:48 BP 114 / 68; Pulse 87; Resp 18; Pulse Ox 98% on R/A; ea 21:36 BP 117 / 80; Pulse 78; Resp 20; Temp 98.6; Pulse Ox 97% ; ea ED Course: 17:53 Patient arrived in ED. ag5 18:12 Arm band placed on. aa5 18:14 Triage completed. aa5 18:16 Harrison Orozco MD is Attending Physician. kdr 18:20 Patient has correct armband on for positive identification. Placed in gown. Bed in low em position. Call light in reach. Side rails up X2. clinical research monitor on. Pulse ox on. NIBP on. 18:20 Initial lab(s) drawn, by me, sent to lab. Inserted saline lock: 20 gauge in right em antecubital area, using aseptic technique. Blood collected. 18:20 Patient maintains SpO2 saturation greater than 95% on room air. em 18:22 Gerald Marquez, RN is Primary Nurse. em 18:38 XRAY Chest (1 view) In Process Unspecified. EDMS 19:01 Attending Physician role handed off by Harrison Orozco MD [facility] 19:01 Good Arteaga MD is Attending Physician. [facility] 20:44 Balbir Fabian MD is Hospitalizing Provider. [facility] 21:34 No provider procedures requiring assistance completed. Patient admitted, IV remains in ea place. Administered Medications: 18:51 Drug: Ativan 1 mg Route: PO; em 20:54 Follow up: Response: No adverse reaction mg2 18:53 Drug: Zofran (Ondansetron) 4 mg Route: IVP; Site: right antecubital; em 20:55 Follow up: Response: No adverse reaction mg2 18:54 Not Given (Other Intervention Used): Aspirin Chewable Tablet 243 mg PO once; 81 mg em tablets x 3 18:54 Drug: Aspirin Chewable Tablet 162 mg Route: PO; em 20:54 Follow up: Response: No adverse reaction mg2 18:55 Drug: morphine 4 mg Route: IVP; Site: right antecubital; em 20:55 Follow up: Response: No adverse reaction mg2 Outcome: 20:45 Decision to Hospitalize by Provider. [facility] 21:34 Instructed on the need for admit, Demonstrated understanding of instructions. ea 22:36 Admitted to Med/surg accompanied by tech, via wheelchair, room 212, with chart, Report ea called to Receiving nurse on second floor 22:37 Condition: stable ea 22:41 Patient left the ED. ea Signatures: Dispatcher [employer] EDID Harrison Orozco MD MD kdr Munoz, Edgar RN RN Kenyetta Escobedo, RN RN 5 Anat Patterson RN RN ea Gardose, Michele, GEMINI SINGLETARY [facility] Abdulaziz Fowler [facility] Good Arteaga MD MD [facility]
--- NOTE | 2020-07-18 20:46 | EDPHYS ---
Physician Documentation [facility] Name: Nahid Espinoza Age: 49 yrs Sex: Male : 1970 Arrival Date: 07/18/2020 Time: 17:53 Bed 2 Private MD: ED Physician Good Arteaga HPI: 07/18 18:30 This 49 yrs old Male presents to ER via Wheelchair with complaints of Chest kdr Pain. 18:30 The patient or guardian reports chest pain that is located primarily in the anterior kdr chest wall, left. Onset: suddenly, this morning. The pain radiates to the left shoulder. Associated signs and symptoms: Pertinent positives: diaphoresis, shortness of breath, Pertinent negatives: abdominal pain, cough, dizziness, headache, lower extremity pain, lower extremity swelling, lightheadedness, palpitations, recent travel, shortness of breath, syncope. 18:34 The chest pain is described as aching, dull, a pressure. Duration: The patient or kdr guardian reports a single episode, that is still ongoing. Modifying factors: The symptoms are alleviated by nothing. the symptoms are aggravated by nothing. Severity of pain: At its worst the pain was mild moderate. The patient has not experienced similar symptoms in the past. The patient has not recently seen a physician. Historical: - Allergies: 18:14 PENICILLINS; rash; aa5 - PMHx: 18:14 High Cholesterol; Hypertension; aa5 - PSHx: 18:14 Hernia repair; aa5 - Immunization history:: Adult Immunizations unknown. - Social history:: Smoking status: unknown. ROS: 18:34 Constitutional: Negative for fever, chills, and weight loss, Eyes: Negative for injury, kdr pain, redness, and discharge, ENT: Negative for injury, pain, and discharge, Neck: Negative for injury, pain, and swelling, Respiratory: Negative for shortness of breath, cough, wheezing, and pleuritic chest pain, Abdomen/GI: Negative for abdominal pain, nausea, vomiting, diarrhea, and constipation, Back: Negative for injury and pain, : Negative for injury, bleeding, discharge, and swelling, MS/Extremity: Negative for injury and deformity, Skin: Negative for injury, rash, and discoloration, Neuro: Negative for headache, weakness, numbness, tingling, and seizure activity. Psych: Negative for depression, anxiety, suicide ideation, homicidal ideation, and hallucinations, Allergy/Immunology: Negative for hives, rash, and allergies, Endocrine: Negative for neck swelling, polydipsia, polyuria, polyphagia, and marked weight changes, Hematologic/Lymphatic: Negative for swollen nodes, abnormal bleeding, and unusual bruising. 18:34 Cardiovascular: Positive for chest pain, Negative for edema, orthopnea, palpitations, paroxysmal nocturnal dyspnea. Exam: 18:34 Constitutional: This is a well developed, well nourished patient who is awake, alert, kdr and in no acute distress. Head/Face: Normocephalic, atraumatic. Eyes: Pupils equal round and reactive to light, extra-ocular motions intact. Lids and lashes normal. Conjunctiva and sclera are non-icteric and not injected. Cornea within normal limits. Periorbital areas with no swelling, redness, or edema. Neck: Trachea midline, no thyromegaly or masses palpated, and no cervical lymphadenopathy. Supple, full range of motion without nuchal rigidity, or vertebral point tenderness. No Meningismus. Chest/axilla: Normal chest wall appearance and motion. Nontender with no deformity. No lesions are appreciated. Cardiovascular: Regular rate and rhythm with a normal S1 and S2. No gallops, murmurs, or rubs. Normal PMI, no JVD. No pulse deficits. Respiratory: Lungs have equal breath sounds bilaterally, clear to auscultation and percussion. No rales, rhonchi or wheezes noted. No increased work of breathing, no retractions or nasal flaring. Abdomen/GI: Soft, non-tender, with normal bowel sounds. No distension or tympany. No guarding or rebound. No evidence of tenderness throughout. Back: No spinal tenderness. No costovertebral tenderness. Full range of motion. Skin: Warm, dry with normal turgor. Normal color with no rashes, no lesions, and no evidence of cellulitis. MS/ Extremity: Pulses equal, no cyanosis. Neurovascular intact. Full, normal range of motion. Neuro: Awake and alert, GCS 15, oriented to person, place, time, and situation. Cranial nerves II-XII grossly intact. Motor strength 5/5 in all extremities. Sensory grossly intact. Cerebellar exam normal. Normal gait. Psych: Awake, alert, with orientation to person, place and time. Behavior, mood, and affect are within normal limits. 18:34 Abdomen/GI: Inspection: obese Vital Signs: 18:12 BP 118 / 79; Pulse 81; Resp 18 S; Temp 98.4(O); Pulse Ox 97% on R/A; aa5 20:45 BP 114 / 68; Pulse 76; Resp 18; Pulse Ox 98% on R/A; mg2 20:48 BP 114 / 68; Pulse 87; Resp 18; Pulse Ox 98% on R/A; ea 21:36 BP 117 / 80; Pulse 78; Resp 20; Temp 98.6; Pulse Ox 97% ; ea MDM: 20:43 Differential diagnosis: acute myocardial infarction, acute pericarditis, anxiety, mh7 coronary artery disease chest wall pain, congestive heart failure costochondritis, myocarditis, pericarditis, pleurisy. HEART Score: History: Highly Suspicious (2), ECG: Normal (0), Age: > 45 and < 65 years (1), Risk Factors: 1 or 2 risk factors (1), [Hypercholesterolemia] [Hypertension] Troponin: < or = 1 x Normal Limit (0), Total Score = 4. Data reviewed: vital signs, nurses notes, lab test result(s), EKG, radiologic studies. Data interpreted: Pulse oximetry: on room air is 97 %. Interpretation: normal. Counseling: I had a detailed discussion with the patient and/or guardian regarding: the historical points, exam findings, and any diagnostic results supporting the discharge/admit diagnosis, lab results, radiology results, the need for further work-up and treatment in the hospital. 20:45 Patient medically screened. [facility] 07/18 18:23 Order name: Basic Metabolic Panel 07/18 18:23 Order name: CBC with Diff 07/18 18:23 Order name: LFT's 07/18 18:23 Order name: Magnesium; Complete Time: 19:33 07/18 18:23 Order name: NT PRO-BNP; Complete Time: 19:33 07/18 18:23 Order name: PT-INR; Complete Time: 19:33 07/18 18:23 Order name: Troponin (emerg Dept Use Only); Complete Time: 19:33 07/18 18:23 Order name: XRAY Chest (1 view); Complete Time: 19:33 07/18 18:23 Order name: Basic Metabolic Panel; Complete Time: 19:33 EDMS 07/18 18:23 Order name: CBC with Automated Diff; Complete Time: 19:33 EDNY 07/18 18:23 Order name: Liver (Hepatic) Function; Complete Time: 19:33 EDMS 07/18 20:54 Order name: COVID-19 mg2 07/18 20:54 Order name: CORONAVIRUS EDNY 07/18 22:22 Order name: SARS-COV-2 RT PCR EDNY 07/18 18:23 Order name: EKG; Complete Time: 18:24 em 07/18 18:23 Order name: Cardiac monitoring; Complete Time: 18:23 em 07/18 18:23 Order name: EKG - Nurse/Tech; Complete Time: 18:23 em 07/18 18:23 Order name: IV Saline Lock; Complete Time: 18:23 em 07/18 18:23 Order name: Labs collected and sent; Complete Time: 18:23 em 07/18 18:23 Order name: O2 Per Protocol; Complete Time: 18:23 em 07/18 18:23 Order name: O2 Sat Monitoring; Complete Time: 18:23 em Administered Medications: 18:51 Drug: Ativan 1 mg Route: PO; em 20:54 Follow up: Response: No adverse reaction mg2 18:53 Drug: Zofran (Ondansetron) 4 mg Route: IVP; Site: right antecubital; em 20:55 Follow up: Response: No adverse reaction mg2 18:54 Not Given (Other Intervention Used): Aspirin Chewable Tablet 243 mg PO once; 81 mg em tablets x 3 18:54 Drug: Aspirin Chewable Tablet 162 mg Route: PO; em 20:54 Follow up: Response: No adverse reaction mg2 18:55 Drug: morphine 4 mg Route: IVP; Site: right antecubital; em 20:55 Follow up: Response: No adverse reaction mg2 Disposition: 07/18/20 20:45 Hospitalization ordered by Balbir Fabian for Observation. Preliminary diagnosis is Chest pain, unspecified. - Bed requested for Telemetry/MedSurg (observation). - Status is Observation. ea - Condition is Stable. - Problem is new. - Symptoms have improved. Signatures: Dispatcher [employer] EDMS Harrison Orozco MD MD kdr Munoz Gerald, RN RN em Kenyetta Escobedo, RN RN aa5 Cora Higuera, RN RN tl1 Anat Patterson, GEMINI RN Good Stanton MD MD 7 Rocky Lobo RN [facility] Corrections: (The following items were deleted from the chart) 22:08 20:45 Hospitalization Ordered by Balbir Fabian MD for Observation. Preliminary tl1 diagnosis is Chest pain, unspecified. Bed requested for Telemetry/MedSurg (observation). Status is Observation. Condition is Stable. Problem is new. Symptoms have improved. [facility] 22:41 22:08 07/18/2020 20:45 Hospitalization Ordered by Balbir Fabian MD for Observation. prabha Preliminary diagnosis is Chest pain, unspecified. Bed requested for Telemetry/MedSurg (observation). Status is Observation. Condition is Stable. Problem is new. Symptoms have improved. tl1
--- NOTE | 2020-07-18 21:48 | P.HP ---
Certification for Inpatient Patient admitted to: Observation With expected LOS: <2 Midnights Patient will require the following post-hospital care: None Practitioner: I am a practitioner with admitting privileges, knowledge of patient current condition, hospital course, and medical plan of care. Services: Services provided to patient in accordance with Admission requirements found in Title 42 Section 412.3 of the Code of Federal Regulations Patient History Date of Service: 07/18/20 Primary Care Provider: Luca Reason for admission: Chest pain History of Present Illness: 49-year-old male with history of hypertension presents emergency department for chest pain. Patient reports that he has had chest pain since t his morning, describes pain as sharp, substernal, nonradiating, did have episode of vomiting and shortness of breath today as well. Patient had stress test approximately 5 years ago but has never had a more thorough cardiac evaluation. Initial troponin negative, EKG unremarkable, chest x-ray unremarkable. Patient with some renal insufficiency, no baseline labs available for comparison. Allergies PENICILLINS Allergy (Uncoded 10/10/19 11:17) unknown Home Medications: Aspirin Chewable [Aspirin Chewable*] 81 mg PO DAILY 10/10/19 Atorvastatin Calcium 10 mg PO DAILY 10/10/19 Carvedilol [Coreg] 1.5 tab PO BID 10/10/19 Citalopram Hydrobromide [Citalopram HBr] 40 mg PO DAILY 10/10/19 Fenofibrate 50 mg PO DAILY 10/10/19 Lisinopril [Zestril] 40 mg PO DAILY 10/10/19 Multivitamin [Multivitamins] 1 each PO DAILY 10/10/19 Psyllium Husk/Aspartame [Metamucil Fiber Singles Packet] 3.4 gm PO DAILY 10/10/19 Trazodone HCl 100 mg PO BEDTIME 10/10/19 - Past Medical/Surgical History -: Hypertension -: Hyperlipidemia -: willy -: Cholecystectomy Psychosocial/ Personal History: Patient is retired, lives with family - Family History Family History: Reviewed- Non-Contributory - Social History Smoking Status: Never smoker Alcohol use: Yes CD- Drugs: No Caffeine use: Yes Place of Residence: Home Review of Systems 10-point ROS is otherwise unremarkable Respiratory: Shortness of Breath Cardiovascular: Chest Pain Gastrointestinal: Nausea, Vomiting Physical Examination - Physical Exam General: Alert, In no apparent distress HEENT: Atraumatic, PERRLA, Mucous membr. moist/pink Neck: Supple, 2+ carotid pulse no bruit, No LAD Respiratory: Clear to auscultation bilaterally, Normal air movement Cardiovascular: Regular rate/rhythm, Normal S1 S2 Gastrointestinal: Normal bowel sounds, No tenderness Musculoskeletal: No tenderness Integumentary: No rashes Neurological: Normal speech, Normal strength at 5/5 x4 extr, Normal tone, Normal affect - Studies Laboratory Data (last 24 hrs) 07/18/20 18:20: PT 12.7 H, INR 1.08 07/18/20 18:20: WBC 9.2, Hgb 13.8, Hct 41.5, Plt Count 225 07/18/20 18:20: Sodium 135 L, Potassium 4.4, BUN 21 H, Creatinine 1.31 H, Glucose 104, Magnesium 2.4 D, Total Bilirubin 1.1 H, AST 58 H, ALT 56, Alkaline Phosphatase 98 Assessment and Plan - Plan Assessment Chest pain rule out ACS Hypertension Renal insufficiency Obstructive sleep apnea Plan Chest pain rule out ACS: Trend troponins, monitor on telemetry. Aspirin, increase atorvastatin from 10 mg to 40 mg, continue carvedilol. Cardiology consult in place. Hypertension: Continue carvedilol, hold lisinopril at this time due to renal insufficiency, unsure if acute or not. Renal insufficiency: Continue gentle hydration overnight, recheck renal function with morning labs. Obstructive sleep apnea: Provide patient with CPAP. Discharge Plan: Home Plan to discharge in: 24 Hours - Advance Directives Does patient have a Living Will: No Does patient have a Durable POA for Healthcare: No - Code Status/Comfort Care Code Status Assessed: Yes (Full code) Critical Care: No Time Spent Managing Pts Care (In Minutes): 55
[2020-07-18] MEDS ORDERED: ACETAMINOPHEN 500 MG TAB PO PRN (22:58)
[2020-07-18 22:59] VITALS: BMI 43.4
[2020-07-18 23:45] VITALS: O2SAT 97
[2020-07-19] MEDS: MORPHINE 2 MG/ML SYR IV PRN ×2 (00:40→08:47)
[2020-07-19] MEDS: ONDANSETRON 4 MG/2 ML VIAL IV PRN ×2 (00:40→08:43)
[2020-07-19] MEDS: NA CHLORIDE 0.9% 1,000 ML IV SCH ×2 (00:40→13:16)
[2020-07-19 06:18] LABS: Absolute Lymphocytes (CBC) 1.3 K/uL (0.7-4.9); Basophils % 0.9 % (0-1.3); Hematocrit 38.6 % (39.6-49.0); Lymphocytes % 22.3 % (15.3-44.8); MPV 8.6 fL (7.6-11.3); RBC Red Blood Cell Count 4.21 M/uL (4.33-5.43)
[2020-07-19 06:41] LABS: BUN Blood Urea Nitrogen 20 mg/dL (7-18); Bicarbonate 29 mmol/L (21-32); Glucose Level 106 mg/dL (74-106); HDL Cholesterol 82 mg/dL (40-60); LDL Cholesterol, Calculated 37 (<130); Magnesium 2.3 mg/dL (1.8-2.4); Potassium 4.1 mmol/L (3.5-5.1); Sodium Level 136 mmol/L (136-145); Troponin I < 0.02 ng/mL (0.0-0.045)
[2020-07-19] MEDS ORDERED: carvediloL 6.25 MG TAB PO SCH (09:00)
[2020-07-19] MEDS ORDERED: ENOXAPARIN 40 MG/0.4 ML SQ SCH (09:00)
[2020-07-19] MEDS ORDERED: ASPIRIN EC 81 MG TAB PO SCH (09:00)
[2020-07-19 10:47] VITALS: TEMP 97.3
--- NOTE | 2020-07-19 11:03 | P.PN ---
Subjective Date of Service: 07/19/20 Primary Care Provider: Luca Chief Complaint: Chest pain No change still complaining of localized atypical chest pain left parasternal region no prior history of coronary artery disease sounds like a very atypical chest pain still persistent Review of Systems Unremarkable Physical Examination - Vital Signs Temperature: 97.3 F Blood Pressure: 115/69 Pulse: 72 Respirations: 18 Pulse Ox (%): 98 - Physical Exam General: Alert, Oriented x3 HEENT: Atraumatic Respiratory: Clear to auscultation bilaterally Cardiovascular: No edema Gastrointestinal: Normal bowel sounds, Soft and benign - Studies Laboratory Data (last 24 hrs) 07/18/20 18:20: PT 12.7 H, INR 1.08 07/18/20 18:20: WBC 9.2, Hgb 13.8, Hct 41.5, Plt Count 225 07/18/20 18:20: Sodium 135 L, Potassium 4.4, BUN 21 H, Creatinine 1.31 H, Glucose 104, Magnesium 2.4 D, Total Bilirubin 1.1 H, AST 58 H, ALT 56, Alkaline Phosphatase 98 Assessment & Plan - Problems (Diagnosis) (1) Chest pain Current Visit: Yes Status: Acute Plan: Patient is 49 years of age presented with atypical localize left parasternal chest pain mittal persistent denies any symptoms of reflux no prior history of coronary artery disease he has hypertension no prior history of chest pain on exertion troponins negative EKG not available plan to ambulate Consul cardiology possible discharge outpatient stress test Qualifiers: Chest pain type: unspecified Qualified Code(s): R07.9 - Chest pain, unspecified Discharge Plan: Home
[2020-07-19] MEDS ORDERED: KETOROLAC 30 MG/ML INJ IV ONE (13:11)
--- NOTE | 2020-07-19 17:20 | P.DS ---
Admission Date: 07/18/20 Discharge Date: 07/19/20 Primary Care Provider: Luca Disposition: ROUTINE DISCHARGE Discharge Condition: FAIR Reason for Admission: Chest pain - Problems (1) Chest pain Status: Acute Qualifiers: Chest pain type: unspecified Qualified Code(s): R07.9 - Chest pain, unspecified Brief History of Present Illness: Patient is 54 years of age admitted with atypical chest pain Hospital Course: Admitted is still continues to complain of persistent left-sided parasternal chest pain waited localize no prior history of coronary artery disease no cardiac risk factors apart from hypertension 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 and discharged is to follow-up with Cardiology Vital Signs/Physical Exam: Temp Pulse Resp BP Pulse Ox 97.3 F 89 20 122/67 95 07/19/20 14:04 07/19/20 12:00 07/19/20 12:00 07/19/20 12:00 07/19/20 12:00 Laboratory Data at Discharge: WBC 6.0 K/uL (4.3-10.9) D 07/19/20 05:25 Hgb 13.1 g/dL (13.6-17.9) L 07/19/20 05:25 Hct 38.6 % (39.6-49.0) L 07/19/20 05:25 Plt Count 176 K/uL (152-406) D 07/19/20 05:25 PT 12.7 SECONDS (9.5-12.5) H 07/18/20 18:20 INR 1.08 07/18/20 18:20 Sodium 136 mmol/L (136-145) 07/19/20 05:25 Potassium 4.1 mmol/L (3.5-5.1) 07/19/20 05:25 BUN 20 mg/dL (7-18) H 07/19/20 05:25 Creatinine 1.17 mg/dL (0.55-1.3) 07/19/20 05:25 Glucose 106 mg/dL (74-106) 07/19/20 05:25 Magnesium 2.3 mg/dL (1.8-2.4) 07/19/20 05:25 Total Bilirubin 1.1 mg/dL (0.2-1.0) H 07/18/20 18:20 AST 58 U/L (15-37) H 07/18/20 18:20 ALT 56 U/L (12-78) 07/18/20 18:20 Alkaline Phosphatase 98 U/L (45-117) 07/18/20 18:20 Troponin I < 0.02 ng/mL (0.0-0.045) 07/19/20 14:18 Triglycerides 336 mg/dL (<150) H 07/19/20 05:25 Cholesterol 186 mg/dL (<200) 07/19/20 05:25 HDL Cholesterol 82 mg/dL (40-60) H 07/19/20 05:25 Cholesterol/HDL Ratio 2.27 07/19/20 05:25 Home Medications: Aspirin Chewable [Aspirin Chewable*] 81 mg PO DAILY 10/10/19 Atorvastatin Calcium 10 mg PO DAILY 10/10/19 Carvedilol [Coreg] 1.5 tab PO BID 10/10/19 Citalopram Hydrobromide [Citalopram HBr] 40 mg PO DAILY 10/10/19 Lisinopril [Zestril] 40 mg PO DAILY 10/10/19 Multivitamin [Multivitamins] 1 each PO DAILY 10/10/19 Fenofibrate 54 mg PO DAILY WITH BREAKFAST 07/19/20 Fiber Capsules 5 cap PO DAILY 07/19/20 Trazodone HCl 100 mg PO BEDTIME 07/19/20 Diet: Regular Followup: Leonardo Segovia DO [Primary Care Provider] - Miguel Mata MD [ACTIVE - CAN ADMIT] -
[2020-07-19 17:21] VITALS: BP 115/69
--- NOTE | 2020-07-19 18:52 | CON ---
Date of Consultation: 07/19/2020 Reason For Consultation: Chest pain. History Of Present Illness: A 49-year-old male, history of obstructive sleep apnea, dyslipidemia, hy pertension, presented with chest pain that is sharp, short lived, substernal, no radiation, not relat ed to exertion, had some shortness of breath and nausea earlier but it is completely resolved. The p atient apparently had a stress test about 5 years ago that was negative. The patient is otherwise ac tive and no exertional chest pain or shortness of breath and at the present time, he is comfortable. Did an EKG with the last chest pain and did not show any acute abnormalities. Past Medical History: As outlined above in HPI. Medications: Refer to reconciliation sheet for detailed list. Allergies: PENICILLIN. Family History: No premature coronary artery disease or cancer. Social History: Does not smoke or drink. Does not use any drugs. Review of Systems: All systems reviewed and they were negative except for what is mentioned in the HPI. Physical Examination: Vital Signs: Temperature is 97.3, pulse 72, breathing 18, blood pressure 115/69, saturating 98% on r oom air. General: Pleasant middle-aged male, in no apparent distress. Head and Neck: Pupils are equal, react to light. Intact eye movements. No JVD. No cervical lympha denopathy. Neck: Supple. Thyroid is not enlarged. Lungs: Clear to auscultation bilaterally. No rhonchi, wheezing, or crackles. No accessory muscle u se. Heart: Regular rate and rhythm. No extra sounds. Abdomen: Soft, nontender. Bowel sounds positive. No organomegaly. No masses or hernia. No rigidi ty or rebound. Extremities: No edema, clubbing, or cyanosis. Intact pulses. Skin: No rashes. Neurologic: Alert, awake, oriented x3. No acute focal deficits appreciated. Investigations: Troponins x3 are negative. Creatinine 1.17. His LDL is 37, HDL is 82. White blood count 6, hemoglobin 13.1. EKG without acute specific abnormalities. Assessment And Plan: 1.Chest pain. It is atypical, nonexertional and EKG without specific abnormalities as his sets of c ardiac enzymes are negative. Repeat 1 more troponin. If this is negative, from Cardiology standpoin t, the patient can be released to do an exercise nuclear stress test early this coming week as well a s an echo. Start baby aspirin 81 mg and report any further chest pain back immediately to the emerge ncy room. 2.Hypertension. Blood pressure is controlled. Thank you for the consult. /ALEX Voice ID: [id number] Report ID: [id number]
[2020-07-19] MEDS ORDERED: ATORVASTATIN 40 MG TAB PO SCH (21:00)
== END 2020-07-19 16:09 | disposition home or self-care (01) ==
LOC: ER 17:52 → ERHOLD 21:29 → 2ND 22:35
PROVIDERS: ADMIT Internal Medicine Sleep Medicine; ATTEND Internal Medicine Sleep Medicine
DX: R07.9 Chest pain, unspecified (principal); G47.33 Obstructive sleep apnea (adult) (pediatric); E78.5 Hyperlipidemia, unspecified; I10 Essential (primary) hypertension; Z79.82 Long term (current) use of aspirin; N28.9 Disorder of kidney and ureter, unspecified; Z20.828 Contact with and (suspected) exposure to other viral communicable diseases; R94.31 Abnormal electrocardiogram [ECG] [EKG]
CPT/HCPCS: 93005 ×2; 85025 ×2; 80048 ×2; 36415; 83735 ×2; 85610; 80061; 80076; 84443; 84484 ×4; 84439; 83880; 71045; 94660; 96375; 96374; 99285; U0003; J1650; J2270 ×3; J7030 ×2; J2405 ×3

== ENCOUNTER 2021-03-28 07:49 | Inpatient (IN) | payer BC ==
--- OUTSIDE RECORDS SUMMARY | 2021-03-28 07:52 | XMS REPORT | Continuity of Care Document ---
:1970 Author Organization [facility] t Address [address] [place] [address] Care Team Providers Name Role Phone Jamshid Segovia DO Primary Care Physician Melvin AKERS Attending Clinician Unavailable Laura AKERS Attending Clinician Unavailable Alistair AKERS Attending Clinician Unavailable Jelena BELTRAN Attending Clinician Unavailable SHILOH SEGOVIA Attending Clinician Unavailable Jelena BELTRAN Admitting Clinician Unavailable BLAYNE SEGURA Admitting Clinician Unavailable Payers Payer Name Policy Type Policy Number Effective Date Expiration Date S ource Problems Condition Condition Condition Status Onset Resolution Last Treating Co mments Source Name Details Category Date Date Treatment Clinician Date Symptomati Symptomati Disease Active 2019-[address] [facility] c 6-02 [facility] cholelithi cholelithi 00:00: Me dical asis asis 00 Center Essential Essential Disease Active [address] [facility] [address] hypertensi hypertensi 10-31 Yael kes - on on 00:00: Medical 00 [place] Mixed Mixed Disease Active 2020-[address] [facility] hyperlipid hyperlipid 10-31 Yael kes - emia emia 00:00: Medical 00 Center Coronary Coronary Disease Active 2020-0 [facility] artery 4 [facility] - disease disease 00:00: Medical involving involving 00 Cent [place] coronary coronary artery of artery of [place] heart heart without without angina angina pectoris pectoris Alcohol Alcohol Disease Active 2019- [facility] use use 10-30 [facility] - 00:00: Medical 00 [place] Elevated Elevated Disease Active 2020-0 [facility] LFTs LFTs 4-08 [facility] - 00:[facility]: Medical 00 [place] Cholelithi Cholelithi Disease Active [facility] asis asis 10-29 [facility] - 00:00: Medical 00 [place] Allergies, Adverse Reactions, Alerts Allergy Allergy Status Severity Reaction(s) Onset Inactive Treating Comm ents Source Name Type Date Date Clinician Penicill Propensi Active Rash [facility] ins [facility] to 10-29 [facility] - adverse 00:00: Medical reaction 00 Center s penicill Adverse Active Info Not [facility] in Reaction Available [facility] Social History Social Habit Start Date Stop Date Quantity Comments Source History [facility] - Alcohol Std Drinks [facility] History [facility] - Alcohol Binge Medical [facility] ter Sex Assigned At [facility] Alcohol intake 2019-12-25 2019-12-25 [facility]00 non-drinker of Medical Ce nter alcohol (finding) Tobacco use and 2019-12-25 2019-12-25 Never used [facility] - exposure 00:00:00 00:00:00 [facility] History SDOH 2019-12-21 2019-12-21 1 [facility] - Alcohol Frequency 00:00:00 00:00:00 [facility] Tobacco Comment 2019-12-21 2019-12-21 quit age 20 [facility] - 00:00:00 00:00:00 [facility] Smoking Status Start Date Stop Date Source Former smoker 2019-12-25 00:00:00 2019-12-25 00:00:00 [facility] Medications Ordered Filled Start Stop Current Ordering Indication Dosage Frequency Signature Comments Components Source Medication Medication Date Date Medication? Clinician (SIG) Name Name citalopram Yes 40mg QD Take [address] (CELEXA) 40 7-31 by mouth Luke s - MG tablet 09:54: daily. Medica l 25 [place] carvediloL Yes 37.5mg Take 37.[address] [facility] (COREG) 25 7-31 mg by [facility] - MG tablet 09:54: mouth 2 Medic al 25 (two) Center times daily with breakfast and dinner . traZODone Yes 100mg QD Take [address] (DESYREL) 7-31 mg by [facility] - 100 MG 09:54: mouth Medical tablet 25 nightly. [place] fenofibrate Yes 54mg QD Take [address] (LOFIBRA) 7-31 by mouth [facility] - 54 MG 09:54: daily. Medical tablet 25 [place] lisinopriL Yes 40mg QD Take [address] (PRINIVIL,Z 7-31 by mouth Luke s - ESTRIL) 40 09:54: daily. Medic al MG tablet 25 [place] atorvastati Yes 10mg QD Take [address] n (LIPITOR) 7-31 by mouth Luke s - 10 MG 09:54: daily. Medical tablet 25 [place] aspirin 81 Yes 81mg QD Take [address] MG EC 7- by mouth [facility] - tablet 09:54: daily. Medical 25 [place] multivitami 2020- No 1{tbl} QD Take [address] n 4-10 04-10 tablet by [facility] - (THERAGRAN) 00:00: 23:59 mouth Medi sherwin tablet 00 :00 daily. [place] thiamine No 100mg QD Take 1 [facility] t 100 MG 4-10 04-10 tablet [facility] - tablet 00:00: 23:59 (100 mg Medical 00 :00 total) by Center mouth daily. zinc No 220mg QD Take [address] sulfate 4-10 04-10 capsule [facility] - (ZINCATE) 00:00: 23:59 (220 mg Medi sherwin 220 (50) mg 00 :00 total) by [facility] ter capsule mouth daily. Alprazolam Alprazolam Yes Leonardo [address] [place] [facility] Carvedilol Carvedilol Yes Leonardo [address] [facility] [place] [facility] Mens Mens Yes Leonardo as [facility] Multivitami Multivitami Seg[place]ia directed [facility] Atorvastati Atorvastati [...] [place] at bedtime [facility] Aspir-Low Aspir-Low Yes Leonardo [address] [place] [facility] Zinc Zinc Yes Leonardo [address] Sulfate Sulfate [place] [facility] Celexa Celexa Yes Leonardo 1 [...] s - Memoria l Outpati ent Clinics Citalopram Citalopram Yes Leonardo TAKE [address] Hydrobromid Hydrobromid [place] TABLET BY [facility] - e e MOUTH Memoria EVERY DAY l Outpati ent Clinics Immunizations Ordered Filled Immunization Date Status Comments [facility] e Immunization Name Name TDAP > 7 TDAP > 7 2019-08-[address] [facility] [facility] - Years-Adacel Years-Adacel 00:00:00 [facility] Outpatient Clinics Procedures This patient has no known procedures. Plan of Care Planned Activity Planned Date Details Comments Source Future Scheduled 2029-08-06 DTAP/TDAP/TD VACCINES [facility] - Test 00:00:00 (3 - Td) [code = Medical Zina ter DTAP/TDAP/TD VACCINES (3 - Td)] Future Scheduled 2022-10-[address] [facility] - Test 00:00:00 (procedure) [code = Medical Center [id number]] Future Scheduled 2021-03-25 INFLUENZA VACCINE (#1) [facility] - Test 00:00:00 [code = INFLUENZA Medical Ce nter VACCINE (#1)] Future Scheduled 2020-07-[address] [facility] - Test 00:00:00 (12+) [code = Medical Center DEPRESSION SCREENING (12+)] Future Scheduled 2019-10-06 SHINGLES VACCINES ([address] [facility] - Test 00:00:00 of 2) [code = SHINGLES Medic al Center VACCINES (1 of 2)] Future Scheduled 1975-10-[address] [facility] - Test 00:00:00 0-64 YRS (1 of 1 - Medical C enter PPSV23) [code = PNEUMOCOCCAL VACCINE 0-64 YRS (1 of 1 - PPSV23)] Future Scheduled [address] [facility] - Test 00:00:00 malignant neoplasm of [facility] colon (procedure) [code = 221514894] Encounters Start End Encounter Admission Attending Care Care Encounter Source Date/Time Date/Time Type Type Clinicians Facility Department ID 2021-02-20 2021-02-20 Outpatient [facility] [id number] [facility] 2021-01-23 2021-01-23 Outpatient [facility] [id number] [facility] 2020-12-02 2020-12-[address] [facility] [id number] 00:[facility]00 00:00:00 ion [facility] 2020-11-07 2020-11-07 Telephone Canjarett, [facility] [id number] 00:00[facility]00 00:00:00 [facility] 2020-10-09 2020-10-09 Outpatient [facility] [id number] [facility] 2020-10-06 2020-10-06 Outpatient [facility] [id number] [facility] 2020-10-03 2020-10-03 Outpatient [facility] [id number] [facility] 2020-09-25 2020-09-25 [facility] [id number] [facility] 2020-09-13 2020-09-13 [facility] [id number] [facility] 2020-09-12 2020-09-12 [facility] [id number] [facility] 2020-09-04 2020-09-04 Telephone Alistair, [facility] [id number] 00:00[facility]00 00:00:00 [facility] 2020-08-21 2020-08-21 Victor Manuel Sainz, [facility] [id number] 00:00[facility]00 00:00:00 [facility] 2020-08-05 2020-08-05 [facility] [id number] [facility] 2020-08-04 2020-08-04 [facility] [id number] [facility] 2020-07-31 2020-07-31 [facility] [id number] [facility] 2020-07-31 2020-07-31 Outpatient [facility] [id number] [facility] 2020-06-09 2020-06-09 Outpatient [facility] [id number] [facility] 2020-06-03 2020-06-03 Outpatient [facility] [id number] [facility] 2020-03-27 2020-03-27 [facility] [id number] 09:30:00 09:30:00 [place] [employer] Luke s - Drive [facility] Medicine Outpati ent Clinics 2020-03-06 2020-03-06 [facility] [id number] 08:00:00 08:00:00 t [place] [employer] - Drive [facility] Medicine Outpati ent Clinics 2020-02-08 2020-02-08 [facility] [id number] 10:18:00 10:18:00 [place] [employer] - Drive [facility] Medicine Outpati ent Clinics 2019-12-20 2019-12-20 [facility] [id number] 11:56:00 11:56:00 t [facility] [employer] - Road [facility] Medicine Outpati ent Clinics 2019-12-05 2019-12-05 [facility] [id number] 10:15:00 10:15:00 [place] [employer] - Drive [facility] Medicine Outpati ent Clinics 2019-11-20 2019-11-20 [facility] [id number] 15:55:00 15:55:00 t [employer] - Drive [facility] Medicine Outpati ent Clinics 2019-09-05 2019-09-05 [facility] [id number] 11:20:00 11:20:00 t [place] [employer] - Drive [facility] Medicine Outpati ent Clinics 2019-09-05 2019-09-05 [facility] [id number] 09:30:00 09:30:00 t [place] [employer] - Drive [facility] Medicine Outpati ent Clinics 2019-08-10 2019-08-10 [facility] [id number] 11:23:00 11:23:00 t [place] [employer] - Drive [facility] Medicine Outpati ent Clinics 2019-08-06 2019-08-06 [facility] [id number] 10:00:00 10:00:00 [place] [employer] [facility] 2019-07-24 2019-07-24 [facility] [id number] 09:55:00 09:55:00 t [facility] s [facility] ent Clinics 2019-07-13 2019-07-13 [facility] [id number] 11:00:00 11:00:00 t [facility] s [facility] 2019-07-09 2019-07-09 [facility] [id number] 08:47:00 08:47:00 [facility] 2019-07-06 2019-07-06 [facility] [id number] 10:45:00 10:45:00 [facility] s [facility] ent [facility] Results Test Description Test Time Test Comments Results Result [facility] e Comments TISSUE EXAM 2019-12-26 Surgical Pathology Report 13:53:00 Case: [id number] Authorizing Provider: Kayla Beltran MD Collected: 12/25/2019 08:43 AM Ordering Location: [facility] PERIOPERATIVE Received: 12/25/2019 09:37 AM SERVICES Pathologist: Tamia Lopez MD Specimens: A) - Gallbladder B) - Biopsy, Liver A. GALLBLADDER, CHOLECYSTECTOMY: - CHRONIC CHOLECYSTITIS.B. LIVER, CORE NEEDLE BIOPSY: - MILD STEATOSIS. - MILD PORTAL AND PERISINUSOIDAL FIBROSIS (FIBROSIS GRADE 2 OF 4) - NEGATIVE FOR BALLOONING DEGENERATION OR CHOLESTASIS. - MILD BILE DUCT REACTION. Signing Pathologist Direct Phone Line: [phone] y signed by Tamia Lopez MD on 12/26/2019 at 1:53 PMSymptomatic cholelithiasis [K80.20] 08373E. GallbladderB. Biopsy, liverA. Received in formalin labeled [...] x 1.0 cm thickened area at the fundus. Sectioning of the area reveals a focally cystic wall measuring up to 0.4 cm thick. Technical Director sections are submitted as follows:Section codeA1-gallbladder and inked cystic duct marginA2-entire thickened areaB. Received in formalin labeled with the patient's name, accession number and "liver biopsy" is a 1.7 cm in length by 0.1 cm in diameter delgadillo-yellow soft tissue core which is filtered and submitted in toto in B1.HAZEL Burroughs ([facility])cmB. Section shows 1 core of liver parenchyma [...] portal tracts have preserved bile ducts with mild bile duct reaction. No periductal inflammation, granulomas or bile duct scars are seen. Trichrome highlights mild increase in portal and mild perisinusoidal fibrosis. Special stains:Iron stain; No iron deposition in the hepatocytes. PAS (D): No hyaline globules are seen.Trichrome: Periportal and perisinusoidal fibrosis.Reticulin: Highlights preserved architecture.ACTIVITY SCORE (JESUS)Steatosis: ___ 0 (<5%) _X__ 1 (5-33%); ___ 2 (33-66); ___ 3 (>66%)Lobular Inflammation: ___0 ; __X_1 (<2 foci/200x); __ 2 (2-4 foci/200x); ___ 3 (>4 foci/200x) Hepatocyte Ballooning:_X__ 0 (None); ___ 1 (few ballooned hepatocytes) ; ___ 2 (Many/prominent ballooning)Total: 2/8FIBROSIS:__ 0 None__1 Perisinusoidal or periportal (perivenular)__1A Mild, zone 3, perisinusoidal "delicate" fibrosis __1B Moderate, zone 3, perisinusoidal "dense" fibrosis __1C Portal/periportal This category is included to accommodate cases with portal and/or darya portal fibrosis without accompanying pericellular/perisinusoid al fibrosis_X_ 2 Perisinusoidal and portal/periportal __3 Bridging fibrosis __4 CirrhosisThe interpretation of this case included the use of immunohistochemistry or special stains.Control Slides Examined: In-house known positive controls were evaluated along with the test tissue. These control slides run alongside of the patients sample show appropriate staining. Internal positive and negative controls when available are evaluated Immunohistochemistry technical testing was performed at [facility], Pathology Laboratory where it was developed [...] to perform high complexity clinical laboratory testing. CBC WITH PLATELET COUNT + MANUAL DIFF 2019-12-25 11:59:00 Test Item Value Reference Range Interpretation Comme nts WHITE BLOOD CELL COUNT (BEAKER) (test code = 775) 5.4 K/ L 3.5- 10.5 RED BLOOD CELL COUNT (BEAKER) (test code = 761) 3.68 M/ L 4.63-6 .08 L HEMOGLOBIN (BEAKER) (test code = 410) 11.6 GM/DL 13.7-17.5 L HEMATOCRIT (BEAKER) (test code = 411) 35.4 % 40.1-51.0 L MEAN CORPUSCULAR VOLUME (BEAKER) (test code = 753) 96.2 fL 79. 0-92.2 H MEAN CORPUSCULAR HEMOGLOBIN (BEAKER) (test code = 751) 31.5 pg 25.7-32.2 MEAN CORPUSCULAR HEMOGLOBIN CONC (BEAKER) (test code = 752) 32.8 GM/DL 32.3-36.5 RED CELL DISTRIBUTION WIDTH (BEAKER) (test code = 412) 13.4 % 11.6-14.4 PLATELET COUNT (BEAKER) (test code = 756) 226 K/CU MM 150-450 MEAN PLATELET VOLUME (BEAKER) (test code = 754) 10.9 fL 9.4-12 .4 (MANUAL DIFFERENTIAL)2019-12-25 11:59:00 Test Item Value Reference [...] MORPHOLOGY (BEAKER) (test code Normal = 762) BASIC METABOLIC [id number] 06:42:00 Test Item Value Reference Range Interpretation [...] S NOT APPLICABLE FOR DIALYSIS PATIEN TS. Manager Oncology ID - ELHAM [id number] 09:18:00 Test Item Value Reference Range Interpretation Comments AMMONIA (BEAKER) (test code = 348) 50 mol/L 18-72 Manager Oncology ID - THEO MANTJohn-MITOCHONDRIAL AB, REFLEX TO [id number] 08:17:00 Test Item Value Reference Range Interpretation Comments SCAN RESULT (test code = 0203821) ANTI-NUCLEAR ANTIBODY (GUNNAR)2019-11-03 02:32:00 Test Item Value Reference Range Interpretation Comments ANTI-NUCLEAR ANTIBODY (GUNNAR) (BEAKER) Negative Negative (test code = 418) Test performed by IFA method.Test performed by IFA method.POCT-GLUCOSE METER 2019-11-02 09:08:00 Test Item Value Reference Range Interpretation Comments POC-GLUCOSE METER 115 mg/dL 70-110 H : TESTED A T [facility] 6720 (BEAKER) (test code = [place], 1538) [address]: Manager Oncology/Techni halie ID = [id number] for Sri Wild [id number] 05:06:00 Test Item Value Reference Range Interpretation Comments PHOSPHORUS (BEAKER) (test code = 2.9 mg/dL 2.3-4.7 604) Manager Oncology ID - SANDRA [id number] 05:06:00 Test Item Value Reference Range Interpretation Comments MAGNESIUM (BEAKER) (test code = 1.8 mg/dL 1.6-2.6 627) Manager Oncology ID Deanna FLORES WCOMPREHENSIVE METABOLIC [id number] 05:06:00 Test Item Value Reference Range Interpretation [...] S NOT APPLICABLE FOR DIALYSIS PATIEN TS. Manager Oncology ID Deanna FLORES WSpecimen slightly ictericCBC (HEMOGRAM ONLY)2019-11-02 04:43:00 Test Item Value Reference [...] 0-0 (BEAKER) (test code = 413) POCT-GLUCOSE [id number] 22:50:00 Test Item Value Reference Range Interpretation Comments POC-GLUCOSE METER 155 mg/dL 70-110 H : TESTED A T [facility] 6720 (BEAKER) (test code = [facility], 153) [address]: Manager Oncology/Techni halie ID = [id number] for AN BEATRIZ CAMPOS POCT-GLUCOSE [id number] 19:10:00 Test Item Value Reference Range Interpretation Comments POC-GLUCOSE METER 99 mg/dL 70-110 : TESTED A T [facility] 6720 (BEAKER) (test code = [facility], 1538) 58990: Manager Oncology/Techni halie ID = [id number] for MILLER S, TABITHA POCT-GLUCOSE [id number] 19:00:00 Test Item Value Reference Range Interpretation Comments POC-GLUCOSE METER 148 mg/dL 70-110 H : TESTED A T [facility] 6720 (BEAKER) (test code = [facility], 1538) 33455: Manager Oncology/Techni halie ID = [id number] for RA MOS, TABITHA FL, [id number] 12:00:00Reason for exam:->bile duct obstructionFINAL REPORT A fluoroscopic unit was utilized for a procedure performed in the operating room. No interpretation was requested. Please refer to the operative report regarding findings. Please refer to PACS for patient radiation dose information. Signed: Maxi Montiel Verified Date/Time: 11/01/2019 12:00:41 Reading Location: [facility] Reading Room -GLUCOSE [id number] 06:31:00 Test Item Value Reference Range Interpretation Comments POC-GLUCOSE METER 89 mg/dL 70-110 : TESTED A T [facility] 6720 ([facility] [place] (test code = [place] [facility], 1538) 50185: Manager Oncology/Techni halie ID = [id number] for BEATRIZ SCHUMACHER [id number] 05:53:00 Test Item Value Reference Range Interpretation Comments FERRITIN (BEAKER) (test code = 960.19 ng/mL 5.00-275.00 H 361) Manager Oncology ID - ELHAM LLIPID [id number] 05:53:00 Test Item Value Reference Range Interpretation [...] Borderline 130-159 High 160-189 Very High >=190 Manager Oncology ID - ELHAMLOperator ID - ELHAM LSpecimen slightly icteric HEPATITIS B SURFACE [id number] 05:19:00 Test Item Value Reference Range Interpretation Comments HEPATITIS B SURFACE ANTIBODY < mIU/mL <8.0 (BEAKER) (test code = 647) Manager Oncology ID - ELHAM LVITAMIN B12 AND [id number] 05:15:00 Test Item Value Reference Range Interpretation Comments VITAMIN B12 (BEAKER) (test code = 1049 pg/mL 213-816 H 774) FOLATE (BEAKER) (test code = 362) 14.30 ng/mL >=7.00 Manager Oncology ID - ELHAM LHEPATITIS PANEL, [id number] 04:58:00 Test Item Value Reference Range Interpretation Comments HEPATITIS A IGM ANTIBODY (BEAKER) Nonreactive Nonreactive (test code = 498) HEPATITIS B CORE IGM ANTIBODY Nonreactive Nonreactive (BEAKER) (test code = 645) HEPATITIS C ANTIBODY (BEAKER) Nonreactive Nonreactive (test code = 367) HEPATITIS B SURFACE ANTIGEN (2) Nonreactive Nonreactive (BEAKER) (test code = 2585) Manager Oncology ID - ELHAM LHEPATITIS A ANTIBODY, [id number] 04:58:00 Test Item Value Reference Range Interpretation Comments HEPATITIS A IGG ANTIBODY (BEAKER) Nonreactive Nonreactive (test code = 2797) Manager Oncology ID - ELHAM [id number] 04:43:00 Test Item Value Reference Range Interpretation Comments PHOSPHORUS (BEAKER) (test code = 2.8 mg/dL 2.3-4.7 604) Manager Oncology ID - ELHAM [id number] 04:43:00 Test Item Value Reference Range Interpretation Comments MAGNESIUM (BEAKER) (test code = 1.7 mg/dL 1.6-2.6 627) Manager Oncology ID - ELHAM LCOMPREHENSIVE METABOLIC [id number] 04:43:00 Test Item Value Reference Range Interpretation [...] S NOT APPLICABLE FOR DIALYSIS PATIEN TS. Manager Oncology ID - ELHAM LSpecimen slightly ictericBILIRUBIN, [id number] 04:43:00 Test Item Value Reference Range Interpretation Comments BILIRUBIN DIRECT (BEAKER) (test 2.4 mg/dL 0.1-0.5 H code = 706) Manager Oncology ID - ELHAM PEARSON, TIBC, % SAT. (WITHOUT FERRITIN)2019-11-01 04:40:00 Test Item Value Reference Range Interpretation Comments IRON (BEAKER) (test code = 547) 158.0 ug/dL 40.0-160.0 TOTAL IRON BINDING CAPACITY 158 ug/dL 250-450 L (BEAKER) (test code = 769) IRON % SATURATION (2) (BEAKER) 100 % 20-55 H (test code = 2590) Manager Oncology ID - ELHAM LIMMUNOGLOBULIN G (IGG)2019-11-01 04:35:00 Test Item Value Reference Range Interpretation Comments IMMUNOGLOBULIN G (IGG) (BEAKER) 1111 mg/dL 540-1,822 (test code = 427) Manager Oncology ID - ELHAM [id number] 04:34:00 Test Item Value Reference Range Interpretation Comments ALPHA-1 ANTITRYPSIN (BEAKER) 134.50 mg/dL 90.00-200.00 (test code = 502) Manager Oncology ID - PIAYA LPROTHROMBIN [id number] 04:18:00 Test Item Value Reference Range Interpretation [...] 0-0 (BEAKER) (test code = 413) POCT-GLUCOSE [id number] 23:20:00 Test Item Value Reference Range Interpretation Comments POC-GLUCOSE METER 112 mg/dL 70-110 H : TESTED Maddison Shah [facility] [employer] (EVAN) (test code = [place], 1538) [address]: Manager Oncology/Techni halie ID = [id number] for AN BEATRIZ CAMPOS MR, ABDOMEN, [id number] 09:36:00FINAL REPORT TECHNIQUE: MRI of the abdomen [...] 3.Diffuse fatty infiltration of the liver. Signed: Jorge Gaines Verified Date/Time: 10/31/2019 09:36:55 Reading Location: [facility] Diagnostic Imaging Reading Room - [place] [address] POCT-GLUCOSE [id number] 06:12:00 Test Item Value Reference Range Interpretation Comments POC-GLUCOSE METER 96 mg/dL 70-110 : TESTED A T [facility] 6720 (BEAKER) (test code = [place], 1538) [address]: Manager Oncology/Techni halie ID = [id number] for KOLE NEWBERRY PROTHROMBIN [id number] 03:19:00 Test Item Value Reference Range Interpretation [...] INR is2.5-3.5 for patients wiht mechanical heart valves.[id number] 03:19:00 Test Item Value Reference Range Interpretation Comments PARTIAL THROMBOPLASTIN TIME 32.1 seconds 22.5-36.0 (BEAKER) (test code = 760) BASIC METABOLIC [id number] 03:17:00 Test Item Value Reference Range Interpretation [...] DIALYSIS PATIEN TS. Specimen moderately ictericCOMPREHENSIVE METABOLIC [id number] 03:17:00 Test Item Value Reference Range Interpretation [...] S NOT APPLICABLE FOR DIALYSIS PATIEN TS. Manager Oncology ID - THEO MSpecimen moderately ictericCBC W/PLT COUNT & AUTO [id number] 03:02:00 Test Item Value Reference Range Interpretation [...] PERCENT (BEAKER) (test code = 2801) POCT-GLUCOSE [id number] 00:35:00 Test Item Value Reference Range Interpretation Comments POC-GLUCOSE METER 89 mg/dL 70-110 : TESTED A T [facility] 67[address] ([facility]) (test code = [place], 1538) [id number]: Manager Oncology/Techni halie ID = [id number] for KOLE NEWBERRY
[2021-03-28 08:36] LABS: Absolute Lymphocytes (CBC) 0.8 K/uL (0.7-4.9); Basophils % 0.5 % (0-1.3); Hematocrit 31.8 % (39.6-49.0); Lymphocytes % 13.5 % (15.3-44.8); MPV 8.4 fL (7.6-11.3); RBC Red Blood Cell Count 3.44 M/uL (4.33-5.43)
[2021-03-28 08:38] LABS: Protime INR 0.97
[2021-03-28 08:51] LABS: ALT/SGPT 28 U/L (12-78); AST/SGOT 27 U/L (15-37); Albumin 4.2 g/dL (3.4-5.0); Alkaline Phosphatase 56 U/L (45-117); BUN Blood Urea Nitrogen 53 mg/dL (7-18); Bicarbonate 26 mmol/L (21-32); Bilirubin Direct 0.2 mg/dL (0-0.2); Bilirubin Total 0.5 mg/dL (0.2-1.0); Glucose Level 110 mg/dL (74-106); Magnesium 2.6 mg/dL (1.8-2.4); NT PRO-BNP 34 pg/mL (<125); Potassium 4.5 mmol/L (3.5-5.1); Protein, Total 7.8 g/dL (6.4-8.2); Sodium Level 130 mmol/L (136-145); Troponin (Emerg Dept Use Only) < 0.02 ng/mL (0.0-0.045)
[2021-03-28] MEDS ORDERED: HYDROCODONE/APAP 5/325 MG TAB ONE (08:51)
--- NOTE | 2021-03-28 09:22 | RAD REPORT ---
EXAM DESCRIPTION: Odin Single View03/28/2021 9:11 am CLINICAL HISTORY: Chest pain COMPARISON: 2019 FINDINGS: No gross rib fracture seen. The lungs appear clear of acute infiltrate. The heart is normal size IMPRESSION: No acute abnormalities displayed
--- NOTE | 2021-03-28 10:06 | ER ---
Nurse's Notes [facility] Name: Nahid Espinoza Age: 50 yrs Sex: Male : 1970 Arrival Date: 03/28/2021 Time: 07:52 Bed 8 Private MD: Leonardo Segovia Diagnosis: Dizziness and giddiness;Acute kidney failure, unspecified-on chronic;Fall due to bumping against object;Contusion of back wall of thorax;Obesity, unspecified;Syncope Near Presentation: 03/28 08:10 Chief complaint: Patient states: "I was dizzy yesterday and one of the times I tried to aa5 hold on to the nightstand and ended up falling onto it on my right side and I was in so much pain all night". Pt c/o pain to lateral aspect of chest. Pt denies any dizziness today. Coronavirus screen: At this time, the client does not indicate any symptoms associated with coronavirus-19. Ebola Screen: Patient negative for fever greater than or equal to 101.5 degrees Fahrenheit, and additional compatible Ebola Virus Disease symptoms. Initial Sepsis Screen: Does the patient meet any 2 criteria? No. Patient's initial sepsis screen is negative. Does the patient have a suspected source of infection? No. Patient's initial sepsis screen is negative. Risk Assessment: Do you want to hurt yourself or someone else? Patient reports no desire to harm self or others. Onset of symptoms was March 2021. 08:10 Method Of Arrival: Ambulatory aa5 08:10 Acuity: KATIE 3 aa5 Historical: - Allergies: 08:12 PENICILLINS; rash; aa5 - PMHx: 08:12 High Cholesterol; Hypertension; aa5 - PSHx: 08:12 Hemorrhoidectomy; aa5 - Immunization history:: Client reports receiving the Victor M \\T\\ Victor M single-dose vaccine. - Social history:: Smoking status: Patient denies any tobacco usage or history of. Screenin:14 Abuse screen: Denies threats or abuse. Nutritional screening: No deficits noted. jd3 Tuberculosis screening: No symptoms or risk factors identified. Fall Risk Ambulatory Aid- None/Bed Rest/Nurse Assist (0 pts). Gait- Normal/Bed Rest/Wheelchair (0 pts) Mental Status- Oriented to own ability (0 pts). Total [place] Fall Scale indicates No Risk (0-24 pts). Assessment: 10:13 General: Appears in no apparent distress. comfortable, Behavior is calm, cooperative, jd3 appropriate for age. Pain: Complains of pain in right mid back and right subscapular area and right lateral posterior chest Quality of pain is described as aching, tender. Neuro: Level of Consciousness is awake, alert, obeys commands, Oriented to person, place, time, situation. Cardiovascular: Capillary refill < 3 seconds Patient's skin is warm and dry. Rhythm is regular. Respiratory: Airway is patent Respiratory effort is even, unlabored, Respiratory pattern is regular, symmetrical, Denies cough, shortness of breath. GI: No signs and/or symptoms were reported involving the gastrointestinal system. : No signs and/or symptoms were reported regarding the genitourinary system. EENT: No signs and/or symptoms were reported regarding the EENT system. Derm: Skin is intact, Skin is dry, Skin is normal, Skin temperature is warm. Musculoskeletal: Circulation, motion, and sensation intact. Range of motion: intact in all extremities. 11:12 Reassessment: Patient appears in no apparent distress at this time. No changes from jd3 previously documented assessment. Patient and/or family updated on plan of care and expected duration. Pain level reassessed. Patient is alert, oriented x 3, equal unlabored respirations, skin warm/dry/pink. 12:13 Reassessment: Patient appears in no apparent distress at this time. Patient and/or jd3 family updated on plan of care and expected duration. Pain level reassessed. Patient is alert, oriented x 3, equal unlabored respirations, skin warm/dry/pink. 13:11 Reassessment: Patient appears in no apparent distress at this time. No changes from jd3 previously documented assessment. Patient and/or family updated on plan of care and expected duration. Pain level reassessed. Patient is alert, oriented x 3, equal unlabored respirations, skin warm/dry/pink. charting continued in [facility]. 17:20 Reassessment: Gave report to GEMINI Shearer. Information from the SBAR was given. All rb3 questions asked and answered. 17:30 Reassessment: Patient appears in no apparent distress at this time. Patient and/or rb3 family updated on plan of care and expected duration. Pain level reassessed. Patient is alert, oriented x 3, equal unlabored respirations, skin warm/dry/pink. Vital Signs: 08:10 BP 113 / 61; Pulse 74; Resp 18 S; Temp 97.4(TE); Pulse Ox 100% on R/A; Weight 136.08 kg aa5 (R); Height 5 ft. 11 in. (180.34 cm) (R); Pain 9/10; 12:13 BP 98 / 56; Pulse 79; Resp 18 S; Pulse Ox 100% on R/A; jd3 16:15 BP 97 / 47; Pulse 63; Resp 19; Pulse Ox 100% ; rb3 08:10 Body Mass Index 41.84 (136.08 kg, 180.34 cm) aa5 ED Course: 07:52 Patient arrived in ED. mr 07:52 Leonardo Segovia DO is Private Physician. mr 08:10 Arm band placed on. aa5 08:12 Triage completed. aa5 08:20 Initial lab(s) drawn, by ia, sent to lab. Inserted saline lock: 20 gauge in right aa5 forearm, using aseptic technique. Blood collected. 09:11 Chest Single View XRAY In Process Unspecified. EDMS 09:46 Justin Luevano MD is Attending Physician. mercy 10:02 Landry Parikh DO is Hospitalizing Provider. mercy 10:08 Terrence Butterfield, GEMINI is Primary Nurse. jd3 10:14 Patient has correct armband on for positive identification. Bed in low position. Call jd3 light in reach. Side rails up X 1. aluminum pourer on. Pulse ox on. NIBP on. 10:21 CT Traumagram (Head C Spine CAP wo con) In Process Unspecified. EDMS 13:12 No provider procedures requiring assistance completed. Patient admitted, IV remains in jd3 place. 17:33 No provider procedures requiring assistance completed. Patient admitted, IV remains in rb3 place. Administered Medications: 08:30 Drug: [place] (HYDROcodone-acetaminophen) 5 mg-325 mg 1 tabs Route: PO; aa5 09:30 Follow up: Response: No adverse reaction; RASS: Alert and Calm (0) jd3 09:49 CANCELLED (Duplicate Order): Ativan (LORazepam) 1 mg IVP once [facility] 09:58 CANCELLED (Duplicate Order): Viscous Lidocaine Liquid (4 %) 5 ml Mucous Membrane once; [facility] to bedside 10:13 Not Given (Duplicate Order): NS 0.9% 1000 ml IV at 125 ml/hr continuous jd3 10:35 Drug: NS 0.9% 1000 ml Route: IV; Rate: 1 bolus; Site: right antecubital; jd3 13:00 Follow up: Response: No adverse reaction; IV Status: Completed infusion jd3 10:35 Drug: Pepcid (famotidine) 20 mg Route: IVP; Site: right antecubital; jd3 11:30 Follow up: Response: No adverse reaction jd3 10:35 Drug: NS 0.9% 1000 ml Route: IV; Rate: 125 ml/hr; Site: right antecubital; jd3 13:00 Follow up: Response: No adverse reaction; IV Status: Infusion continued upon admission jd3 12:13 Drug: morphine 2 mg Route: IVP; Site: right antecubital; jd3 13:00 Follow up: Response: No adverse reaction; RASS: Alert and Calm (0) jd3 12:13 Drug: Zofran (Ondansetron) 2 mg Route: IVP; Site: right antecubital; jd3 13:00 Follow up: Response: No adverse reaction j Outcome: 10:05 Decision to Hospitalize by Provider. [facility] 13:12 Admitted to ER Hold. Please see [facility] for further documentation. [facility] 13:12 Condition: stable 13:12 Instructed on the need for admit. 17:33 Admitted to Med/surg accompanied by tech, via wheelchair, room 215, with chart, Report rb3 called to GEMINI Shearer 17:33 Condition: stable 17:33 Instructed on the need for admit. 17:35 Patient left the ED. rb3 Signatures: Dispatcher [employer] EDJustin Diaz MD MD cha Rivera, Mary mr Calderon, Audri, RN RN aa5 Terrence Butterfield RN RN jd3 Stefania Yates, RN RN rb3
--- NOTE | 2021-03-28 10:06 | EDPHYS ---
Physician Documentation [facility] Name: Nahid Espinoza Age: 50 yrs Sex: Male : 1970 Arrival Date: 03/28/2021 Time: 07:52 Bed 8 Private MD: [facility] ED Physician Justin Luevano HPI: 03/28 09:59 This 50 yrs old Male presents to ER via Ambulatory with complaints of Fall mercy Injury, Rib Pain. 09:59 Details of fall: The patient fell from an upright position, while walking. Onset: The mercy symptoms/episode began/occurred yesterday. Associated injuries: The patient sustained upper back injury, injury to the chest, specifically the right lateral posterior chest, contusion, ecchymosis. Severity of symptoms: At their worst the symptoms were moderate, in the emergency department the symptoms are unchanged. . Historical: - Allergies: 08:12 PENICILLINS; rash; aa5 - PMHx: 08:12 High Cholesterol; Hypertension; aa5 - PSHx: 08:12 Hemorrhoidectomy; aa5 - Immunization history:: Client reports receiving the Victor M \\T\\ Victor M single-dose vaccine. - Social history:: Smoking status: Patient denies any tobacco usage or history of. ROS: 10:00 Constitutional: Negative for fever, chills, and weight loss, Eyes: Negative for injury, mercy pain, redness, and discharge, ENT: Negative for injury, pain, and discharge, Neck: Negative for injury, pain, and swelling, Cardiovascular: Negative for chest pain, palpitations, and edema, Respiratory: Negative for shortness of breath, cough, wheezing, and pleuritic chest pain, Abdomen/GI: Negative for abdominal pain, nausea, vomiting, diarrhea, and constipation, : Negative for injury, bleeding, discharge, and swelling, MS/Extremity: Negative for injury and deformity, Skin: Negative for injury, rash, and discoloration, Psych: Negative for depression, anxiety, suicide ideation, homicidal ideation, and hallucinations, Allergy/Immunology: Negative for hives, rash, and allergies, Endocrine: Negative for neck swelling, polydipsia, polyuria, polyphagia, and marked weight changes, Hematologic/Lymphatic: Negative for swollen nodes, abnormal bleeding, and unusual bruising. 10:00 Back: Positive for decreased range of motion, pain at rest, pain with movement, of the right subscapular area and right mid back. 10:00 Neuro: Positive for dizziness. Exam: 10:00 Constitutional: This is a well developed, well nourished patient who is awake, alert, mercy and in no acute distress. Head/Face: Normocephalic, atraumatic. Eyes: Pupils equal round and reactive to light, extra-ocular motions intact. Lids and lashes normal. Conjunctiva and sclera are non-icteric and not injected. Cornea within normal limits. Periorbital areas with no swelling, redness, or edema. ENT: Nares patent. No nasal discharge, no septal abnormalities noted. Tympanic membranes are normal and external auditory canals are clear. Oropharynx with no redness, swelling, or masses, exudates, or evidence of obstruction, uvula midline. Mucous membranes moist. Neck: Trachea midline, no thyromegaly or masses palpated, and no cervical lymphadenopathy. Supple, full range of motion without nuchal rigidity, or vertebral point tenderness. No Meningismus. Cardiovascular: Regular rate and rhythm with a normal S1 and S2. No gallops, murmurs, or rubs. Normal PMI, no JVD. No pulse deficits. Respiratory: Lungs have equal breath sounds bilaterally, clear to auscultation and percussion. No rales, rhonchi or wheezes noted. No increased work of breathing, no retractions or nasal flaring. Abdomen/GI: Soft, non-tender, with normal bowel sounds. No distension or tympany. No guarding or rebound. No evidence of tenderness throughout. Skin: Warm, dry with normal turgor. Normal color with no rashes, no lesions, and no evidence of cellulitis. MS/ Extremity: Pulses equal, no cyanosis. Neurovascular intact. Full, normal range of motion. Neuro: Awake and alert, GCS 15, oriented to person, place, time, and situation. Cranial nerves II-XII grossly intact. Motor strength 5/5 in all extremities. Sensory grossly intact. Cerebellar exam normal. Normal gait. Psych: Awake, alert, with orientation to person, place and time. Behavior, mood, and affect are within normal limits. 10:00 Chest/axilla: Inspection: ecchymosis, that is mild, of the right lateral posterior chest 10:23 ECG was reviewed by the Attending Physician. [facility] Vital Signs: 08:10 BP 113 / 61; Pulse 74; Resp 18 S; Temp 97.4(TE); Pulse Ox 100% on R/A; Weight 136.08 kg aa5 (R); Height 5 ft. 11 in. (180.34 cm) (R); Pain 9/10; 12:13 BP 98 / 56; Pulse 79; Resp 18 S; Pulse Ox 100% on R/A; jd3 16:15 BP 97 / 47; Pulse 63; Resp 19; Pulse Ox 100% ; rb3 08:10 Body Mass Index 41.84 (136.08 kg, 180.34 cm) aa5 MDM: 09:46 Patient medically screened. [facility] 10:21 Differential diagnosis: closed head injury, contusion, multiple trauma, sprain, strain, mercy cardiac arrhythmia, generalized weakness, hypovolemia, syncope, TIA. Differential diagnosis: Chest Wall Contusion Chest Wall Injury Pneumothorax Pulmonary Contusion Rib Fracture. Data reviewed: vital signs, nurses notes, lab test result(s), EKG, radiologic studies, CT scan, plain films. Data interpreted: hydrogen operator: rate is 74 beats/min, rhythm is regular, Pulse oximetry: on room air is 100 %. Test interpretation: by ED physician or midlevel provider: ECG, plain radiologic studies. Counseling: I had a detailed discussion with the patient and/or guardian regarding: the historical points, exam findings, and any diagnostic results supporting the discharge/admit diagnosis, lab results, radiology results, the need for further work-up and treatment in the hospital. 03/28 08:20 Order name: Basic Metabolic Panel [facility] 03/28 08:20 Order name: CBC with Diff; Complete Time: 09:47 03/28 08:20 Order name: LFT's; Complete Time: 13:20 [facility] 03/28 08:20 Order name: Magnesium; Complete Time: 13:20 [facility] 03/28 08:20 Order name: NT PRO-BNP; Complete Time: 13:20 [facility] 03/28 08:20 Order name: PT-INR; Complete Time: 09:47 [facility] 03/28 08:20 Order name: Troponin (emerg Dept Use Only); Complete Time: 13:20 [facility] 03/28 08:20 Order name: Basic Metabolic Panel; Complete Time: 13:20 EDMS 03/28 09:52 Order name: Lipase [facility] 03/28 09:52 Order name: CK [facility] 03/28 09:52 Order name: Ckmb [facility] 03/28 08:22 Order name: Chest Single View XRAY; Complete Time: 09:47 pm1 03/28 09:53 Order name: Urine Culture [facility] 03/28 09:57 Order name: Creatine Phosphokinase; Complete Time: 13:20 [facility] 03/28 09:57 Order name: CKMB Creatine Kinase MB; Complete Time: 13:20 [facility] 03/28 09:57 Order name: Lipase; Complete Time: 13:20 [facility] 03/28 09:59 Order name: COVID-19 : Document "Date of Symptom Onset" if Symptomatic. [facility] 03/28 11:24 Order name: CBC with Automated Diff [facility] 03/28 11:24 Order name: CBC with Automated Diff [facility] 03/28 11:24 Order name: Comprehensive Metabolic Panel [facility] 03/28 11:24 Order name: Comprehensive Metabolic Panel [facility] 03/28 11:43 Order name: Urine Dipstick-Ancillary; Complete Time: 13:20 [facility] 03/28 12:20 Order name: SARS-COV-2 RT PCR; Complete Time: 13:20 [facility] 03/28 12:34 Order name: Phosphorus; Complete Time: 13:20 [facility] 03/28 12:39 Order name: Creatine Phosphokinase; Complete Time: 13:20 [facility] 03/28 12:39 Order name: CKMB Creatine Kinase MB; Complete Time: 13:20 [facility] 03/28 08:20 Order name: IV; Complete Time: 08:20 aa 03/28 09:47 Order name: CT Traumagram (Head C Spine CAP wo con); Complete Time: 13:20 [facility] 03/28 09:53 Order name: Urine Dipstick-Ancillary (obtain specimen); Complete Time: 11:45 [facility] 03/28 10:11 Order name: EKG - Nurse/Tech; Complete Time: 10:11 [facility] 03/28 11:24 Order name: Heart Healthy [facility] 03/28 14:36 Order name: US EDMS EC:23 Rate is 65 beats/min. Rhythm is regular. QRS [place] is Normal. [place] interval is normal. QRS mercy interval is normal. QT interval is normal. No Q waves. T waves are Normal. No ST changes noted. Clinical impression: NSR w/ Non-specific ST/T Changes and No evidence of ischemia. Interpreted by me. Reviewed by me. Administered Medications: 08:30 Drug: [place] (HYDROcodone-acetaminophen) 5 mg-325 mg 1 tabs Route: PO; aa5 09:30 Follow up: Response: No adverse reaction; RASS: Alert and Calm (0) jd3 09:49 CANCELLED (Duplicate Order): Ativan (LORazepam) 1 mg IVP once [facility] 09:58 CANCELLED (Duplicate Order): Viscous Lidocaine Liquid (4 %) 5 ml Mucous Membrane once; [facility] to bedside 10:13 Not Given (Duplicate Order): NS 0.9% 1000 ml IV at 125 ml/hr continuous jd3 10:35 Drug: NS 0.9% 1000 ml Route: IV; Rate: 1 bolus; Site: right antecubital; jd3 13:00 Follow up: Response: No adverse reaction; IV Status: Completed infusion jd3 10:35 Drug: Pepcid (famotidine) 20 mg Route: IVP; Site: right antecubital; jd3 11:30 Follow up: Response: No adverse reaction jd3 10:35 Drug: NS 0.9% 1000 ml Route: IV; Rate: 125 ml/hr; Site: right antecubital; jd3 13:00 Follow up: Response: No adverse reaction; IV Status: Infusion continued upon admission jd3 12:13 Drug: morphine 2 mg Route: IVP; Site: right antecubital; jd3 13:00 Follow up: Response: No adverse reaction; RASS: Alert and Calm (0) jd3 12:13 Drug: Zofran (Ondansetron) 2 mg Route: IVP; Site: right antecubital; jd3 13:00 Follow up: Response: No adverse reaction jd3 Disposition Summary: 03/28/21 10:05 Hospitalization Ordered Hospitalization Status: Inpatient Admission mercy Provider: Landry Parikh cha Location: Telemetry/MedSurg (Inpatient) mercy Condition: Fair mercy Problem: new mercy Symptoms: have improved mercy Bed/Room Type: Standard mercy Room Assignment: 215(03/28/21 16:27) ja1 Diagnosis - Dizziness and giddiness mercy - Acute kidney failure, unspecified - on chronic mercy - Fall due to bumping against object mercy - Contusion of back wall of thorax mercy - Obesity, unspecified mercy - Syncope Near mercy Forms: - Medication Reconciliation Form mercy - SBAR form mercy Signatures: Dispatcher [employer] EDMS Justin Luevano MD MD cha Calderon, Audri RN RN aa5 Misael Jesus, SHIPPING POINT INSPECTOR SHIPPING POINT INSPECTOR pm1 Alise White 5 Terrence Butterfield RN RN jd3 Armani Staley RN RN ja1 Corrections: (The following items were deleted from the chart) 09:49 09:49 Ativan (LORazepam) 1 mg IVP once ordered. [facility] 09:56 09:53 Lipase ordered. EDMS EDMS 09:56 09:53 Creatine Phosphokinase ordered. EDMS EDMS 09:56 09:53 CKMB Creatine Kinase MB ordered. EDMS EDMS 09:58 09:53 [place] ordered. [facility] 09:58 09:53 Viscous Lidocaine Liquid (4 %) 5 ml Mucous Membrane once; to bedside ordered. [facility] 11:26 09:59 CORONAVIRUS ordered. EDMS EDMS 16:27 10:05 mercy jacinto
[2021-03-28] MEDS ORDERED: NA CHLORIDE 0.9% 2,000 ML ONE (10:30)
[2021-03-28] MEDS ORDERED: FAMOTIDINE 20 MG/2 ML VIAL IV ONE (10:30)
[2021-03-28 10:41] LABS: Creatine Phosphokinase 113 U/L (39-308); Lipase 217 U/L (73-393)
[2021-03-28 10:42] LABS: CKMB Creatine Kinase MB < 1.0 ng/mL (1.0-3.6)
--- NOTE | 2021-03-28 10:57 | P.HP ---
Certification for Inpatient Patient admitted to: Inpatient With expected LOS: >2 Midnights Patient will require the following post-hospital care: None Practitioner: I am a practitioner with admitting privileges, knowledge of patient current condition, hospital course, and medical plan of care. Services: Services provided to patient in accordance with Admission requirements found in Title 42 Section 412.3 of the Code of Federal Regulations Patient History Date of Service: 03/28/21 Reason for admission: Fall , GWENDOLYN , Rib pain , hyponatremia , dizziness History of Present Illness: The patient is a 50 year old gentleman with past medical history of hypertension , hyperlipidemia , obesity , anxiety who presents right sided rib pain s/p mechanical fall 1 day ago. He was in his usual state of health yesterday when he started to feel dizzy , came home and had dinner with family. At approximately 9:00 PM, he was walking in his bedroom when he felt dizzy and sustained a mechanical fall bruising his right mid back against vanity table. He denies loss of consciousness , chest pain , shortness of breath , palpitations , nausea , vomiting , diarrhea , head trauma or any other associated symptoms. On presentation to the ED, the patient was found to have right ,mid back tenderness. Patient reports he started a new diet 'manifest diet' consist of low carb and high protein. He admits to drinking adequate amount of water. His work up in ED is noted for creatinine 3.13 , sodium 130 , magnesium 2.6 , glucose 110. CXR is unremarkable , EKG normal. 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 Allergies Penicillins Allergy (Verified 07/19/20 00:15) Rash Home medications list reviewed: Yes Home Medications: Aspirin Chewable [Aspirin Chewable*] 81 mg PO DAILY 10/10/19 Atorvastatin Calcium 10 mg PO DAILY 10/10/19 Carvedilol [Coreg] 1.5 tab PO BID 10/10/19 Citalopram Hydrobromide [Citalopram HBr] 40 mg PO DAILY 10/10/19 Lisinopril [Zestril] 40 mg PO DAILY 10/10/19 Multivitamin [Multivitamins] 1 each PO DAILY 10/10/19 Fenofibrate 54 mg PO DAILY WITH BREAKFAST 07/19/20 Fiber Capsules 5 cap PO DAILY 07/19/20 Trazodone HCl 100 mg PO BEDTIME 07/19/20 - Past Medical/Surgical History Diabetic: No -: Hypertension -: Hyperlipidemia -: Obstructive Sleep Apnea -: Depression -: Cholecystectomy -: Hemorrhoid Surgery Psychosocial/ Personal History: Patient is retired, lives with family - Social History Smoking Status: Never smoker Alcohol use: Yes CD- Drugs: Yes Caffeine use: Yes Review of Systems General: Unremarkable Eyes: Unremarkable ENT: Unremarkable Respiratory: Unremarkable Cardiovascular: Unremarkable Gastrointestinal: Unremarkable Musculoskeletal: As per HPI Neurological: Unremarkable Physical Examination - Physical Exam General: Alert, Oriented x3, Cooperative, Mild distress, Obese HEENT: Atraumatic, Normocephalic, PERRLA, Mucous membr. moist/pink, EOMI, Sclerae nonicteric Neck: Supple, 2+ carotid pulse no bruit, JVD not distended, Without JVD or thyroid abnormality Respiratory: Clear to auscultation bilaterally, Normal air movement Cardiovascular: No edema, Normal pulses, Regular rate/rhythm Gastrointestinal: Normal bowel sounds, Soft and benign, Non-distended, No tenderness Musculoskeletal: No clubbing, No swelling, No contractures, No erythema, No warmth, Tenderness (mild tenderness to palpation on right mid back ) Integumentary: No rashes, No breakdown, No significant lesion, No tenderness/swelling Neurological: Normal gait, Normal speech, Normal strength at 5/5 x4 extr - Studies Laboratory Data (last 24 hrs) 03/28/21 09:52: Lipase Cancelled 03/28/21 08:20: PT 11.1, INR 0.97 03/28/21 08:20: WBC 6.20, Hgb 11.0 L, Hct 31.8 L, Plt Count 209 03/28/21 08:20: Sodium 130 L, Potassium 4.5, BUN 53 H, Creatinine 3.13 H, Glucose 110 H, Magnesium 2.6 H, Total Bilirubin 0.5, AST 27, ALT 28, Alkaline Phosphatase 56, Lipase 217 Assessment and Plan - Plan Assessment: This is a 60 year old male with past medical history of hypertension , hyperlipidemia , depression and obesity presenting to ED for dizziness and fall. Plan: 1. Dizziness 2. Right rib tenderness s/p fall 3. Hyponatremia 4. Acute Kidney Injury 5. Hypertension 6. Hyperlipidemia 1. Dizziness: EKG WNL. CXR WNL. IV fluids . continue to monitor. 2. Right rib tenderness s/p fall: Head CT noted for nondisplaced fractures fifth and six right anterolateral ribs. No visible cervical spine fracture. Continue pain medications. 3. Hyponatremia: Sodium 130. IV fluids. Continue to monitor. 4. Acute Kidney Injury: Likely 2/2 dehydration. Creatinine 3.13. Basline creatinine 1.3. IV fluids. continue to monitor electrolytes. Avoid DEVON/ARB , NSAIDs. Nephrology consult placed. 5. Hypertension: Continue home medications. Continue to monitor. 6. Hyperlipidemia: Continue home medications. Discharge Plan: Home Plan to discharge in: 48 Hours - Advance Directives Does patient have a Living Will: Yes Does patient have a Durable POA for Healthcare: Yes Time Spent Managing Pts Care (In Minutes): 55
--- NOTE | 2021-03-28 10:57 | RAD REPORT ---
EXAM DESCRIPTION: CT - Head C Spine Cap Wo Con - 03/28/2021 10:21 am TECHNIQUE: Computed axial tomography of the head and cervical spine was obtained. Coronal and sagitt al reconstruction was performed Computed axial tomography of the chest, abdomen and pelvis was obtained. Contrast was not requested. All CT scans are performed using dose optimization technique as appropriate and may include automated exposure control or mA/KV adjustment according to patient size. CLINICAL HISTORY: Head and neck injury with chest and abdominal pain status post fall COMPARISON: CT abdomen 2019 FINDINGS: An intracranial bleed is not seen. The ventricles are normal in caliber. An extra-axial fluid collection is not noted. . Fluid within the sinuses/mastoids is not seen. A cervical fracture is not seen. No dislocation is noted. The evaluation of mediastinum, agnes, vessels, solid organs and bowel are limited secondary to the lac k of contrast administration. A mediastinal hematoma is not noted. A pleural effusion is not seen. A lung contusion is not present. Nondisplaced fractures fifth and six right anterolateral ribs. The liver,spleen, pancreas, adrenals,kidneys and bladder do not demonstrate a traumatic injury Small left and small to moderate right inguinal hernias contain fat Spondylolysis L5. Mild anterior subluxation of L5 on S1 IMPRESSION: 1. No acute intracranial abnormality is seen. 2. A cervical fracture is not visualized. If the patient continues have symptoms to suggest intracran ial/spinal cord pathology MRI be recommended 3. Nondisplaced fractures fifth and six right anterolateral ribs.
[2021-03-28] MEDS ORDERED: ONDANSETRON 4 MG/2 ML VIAL IV PRN (11:16)
[2021-03-28] MEDS ORDERED: ACETAMINOPHEN 500 MG TAB PO PRN (11:31)
[2021-03-28 11:43] LABS: Urine Blood Trace-lysed (Negative); Urine Glucose 2+ (Negative); Urine Protein 1+ (Negative); Urine Specific Gravity 1.015 (1.005-1.030); Urine pH 5.5 (5.0-7.0)
[2021-03-28] MEDS ORDERED: ONDANSETRON 4 MG/2 ML VIAL ONE (12:26)
[2021-03-28] MEDS ORDERED: MORPHINE 2 MG/ML SYR ONE (12:26)
[2021-03-28 12:38] LABS: Creatine Phosphokinase 103 U/L (39-308)
[2021-03-28 12:39] LABS: CKMB Creatine Kinase MB < 1.0 ng/mL (1.0-3.6)
[2021-03-28] MEDS: NA CHLORIDE 0.9% 1,000 ML IV SCH ×2 (13:09→22:06)
[2021-03-28 14:16] VITALS: BMI 42.5
--- NOTE | 2021-03-28 14:36 | RAD REPORT ---
EXAM DESCRIPTION: US - Renal Ultrasound-Complete - 03/28/2021 2:13 pm CLINICAL HISTORY: Acute renal insufficiency COMPARISON: 2019 FINDINGS: The right kidney measures 11 cm with a normal echotexture. The left kidney measures 12 cm with a normal echotexture.3.5 centimeter cyst Hydronephrosis is not seen. Bladder distention IMPRESSION: 3.5 centimeter left renal cyst Bladder distention
[2021-03-28] MEDS ORDERED: NA CHLORIDE 0.9% 500 ML ONE (17:02)
[2021-03-28] MEDS ORDERED: NA CHLORIDE 0.9% 500 ML IV ONE (17:16)
[2021-03-28] MEDS: MORPHINE 2 MG/ML SYR IV PRN (18:50)
[2021-03-28 20:14] LABS: Hematocrit 30.6 % (39.6-49.0); MPV 8.8 fL (7.6-11.3); RBC Red Blood Cell Count 3.31 M/uL (4.33-5.43)
[2021-03-28 20:37] LABS: Potassium 4.3 mmol/L (3.5-5.1)
[2021-03-28] MEDS: HYDROCODONE/APAP 7.5/325 MG TAB PO PRN (22:00)
[2021-03-29 02:57] VITALS: O2SAT 96
[2021-03-29 06:22] LABS: Absolute Lymphocytes (CBC) 0.9 K/uL (0.7-4.9); Basophils % 0.7 % (0-1.3); Hematocrit 27.6 % (39.6-49.0); Lymphocytes % 20.3 % (15.3-44.8); MPV 8.8 fL (7.6-11.3); RBC Red Blood Cell Count 2.98 M/uL (4.33-5.43)
--- NOTE | 2021-03-29 06:27 | P.PN ---
Subjective Date of Service: 03/29/21 Chief Complaint: Fall , GWENDOLYN , Rib pain , hyponatremia , dizziness Physical Examination - Vital Signs Temperature: 97.5 F Blood Pressure: 91/55 Pulse: 54 Respirations: 19 Pulse Ox (%): 100 - Studies Laboratory Data (last 24 hrs) 03/28/21 09:52: Lipase Cancelled 03/28/21 09:42: Sodium 136, Potassium 4.3, BUN 45 H, Creatinine 2.72 H, Glucose 148 H 03/28/21 08:20: PT 11.1, INR 0.97 03/28/21 08:20: WBC 6.20, Hgb 11.0 L, Hct 31.8 L, Plt Count 209 03/28/21 08:20: Sodium 130 L, Potassium 4.5, BUN 53 H, Creatinine 3.13 H, Glucose 110 H, Magnesium 2.6 H, Total Bilirubin 0.5, AST 27, ALT 28, Alkaline Phosphatase 56, Lipase 217
[2021-03-29 06:42] LABS: Albumin 3.5 g/dL (3.4-5.0); Bilirubin Total 0.4 mg/dL (0.2-1.0); C-Reactive Protein 3.49 mg/L (<3.00); Magnesium 2.6 mg/dL (1.8-2.4); Potassium 4.2 mmol/L (3.5-5.1); Protein, Total 6.5 g/dL (6.4-8.2)
--- NOTE | 2021-03-29 07:23 | P.PN ---
Subjective Date of Service: 03/29/21 Chief Complaint: Fall , GWENDOLYN , Rib pain , hyponatremia , dizziness Subjective: No new changes, No C/O voiced, Doing well <Cristiane Oseguera - Last Filed: 03/29/21 13:43> Date of Service: 03/29/21 <Raúl Mehta - Last Filed: 03/29/21 15:40> Review of Systems General: Unremarkable Eyes: Unremarkable ENT: Unremarkable Respiratory: Unremarkable Cardiovascular: Unremarkable Gastrointestinal: Unremarkable Musculoskeletal: Unremarkable Integumentary: Unremarkable Neurological: Unremarkable <Cristiane Oseguera - Last Filed: 03/29/21 13:43> Physical Examination - Vital Signs Temperature: 97.5 F Blood Pressure: 91/55 Pulse: 54 Respirations: 19 Pulse Ox (%): 100 - Physical Exam General: Alert, In no apparent distress, Oriented x3 HEENT: Atraumatic, Normocephalic, PERRLA, Mucous membr. moist/pink, Sclerae nonicteric Neck: Supple, 2+ carotid pulse no bruit, Without JVD or thyroid abnormality Respiratory: Clear to auscultation bilaterally Cardiovascular: No edema, Normal pulses, Regular rate/rhythm Gastrointestinal: Normal bowel sounds, No ascites, No tenderness, No masses, No rebound, No guarding Musculoskeletal: No clubbing, No swelling, No contractures, No erythema, No tenderness, No warmth Integumentary: No rashes, No breakdown, No significant lesion, No tenderness/swelling, No erythema, No warmth Neurological: Normal gait, Normal speech, Normal strength at 5/5 x4 extr - Studies Laboratory Data (last 24 hrs) 03/28/21 09:52: Lipase Cancelled 03/28/21 09:42: Sodium 136, Potassium 4.3, BUN 45 H, Creatinine 2.72 H, Glucose 148 H 03/28/21 08:20: PT 11.1, INR 0.97 03/28/21 08:20: WBC 6.20, Hgb 11.0 L, Hct 31.8 L, Plt Count 209 03/28/21 08:20: Sodium 130 L, Potassium 4.5, BUN 53 H, Creatinine 3.13 H, Glucose 110 H, Magnesium 2.6 H, Total Bilirubin 0.5, AST 27, ALT 28, Alkaline Phosphatase 56, Lipase 217 <Cristiane Oseguera - Last Filed: 03/29/21 13:43> - Studies Laboratory Data (last 24 hrs) 03/28/21 09:42: Sodium 136, Potassium 4.3, BUN 45 H, Creatinine 2.72 H, Glucose 148 H <Raúl Mehta - Last Filed: 03/29/21 15:40> Assessment And Plan - Plan Assessment: This is a 60 year old male with past medical history of hypertension , hyperlipidemia , depression and obesity presenting to ED for dizziness and fall. Plan: 1. Dizziness 2. Right rib tenderness s/p fall 3. Hyponatremia 4. Acute Kidney Injury 5. Hypertension 6. Hyperlipidemia 1. Dizziness: Improved EKG WNL CXR WNL IV fluids Continue to monitor COVID negative 2. Right rib tenderness s/p fall: Head CT noted for nondisplaced fractures fifth and six right anterolateral ribs. No visible cervical spine fracture. Continue pain medications UA unremarkable 3. Hyponatremia: Improved. Sodium 137. Continue IV fluids Continue to monitor. 4. Acute Kidney Injury: Likely 2/2 dehydration Creatinine 2.51. Improved from yesterday. Baseline creatinine 1.3. Continue IV fluids. Continue to monitor electrolytes. Avoid DEVON/ARB , NSAIDs Nephrology consult placed. Awaiting recommendations. 5. Hyperlipidemia: Continue home medications. 6. Hypertension: Hold antihypertensive medications in view of hypotension Continue to monitor Discharge Plan: Home Plan to discharge in: 48 Hours <Cristiane Oseguera - Last Filed: 03/29/21 13:43> - Plan Patient seen and examined on rounds today Pain mostly unchanged, with relief from medications, did not take any pain medication overnight and now feeling more pain GWENDOLYN mildly improved, patient with a lot of urine output Hypotension, remains with systolics 90s/110, had slight dizziness yesterday Unclear etiology, possibly from kidneys Restart home aspirin, atorvastatin, Celexa Time Spent Managing PTS Care (In Minutes): 45 <Raúl Mehta - Last Filed: 03/29/21 15:40>
[2021-03-29] MEDS: NA CHLORIDE 0.9% 1,000 ML IV SCH ×3 (08:00→23:05)
[2021-03-29 08:14] LABS: Urine Appearance CLEAR (Clear); Urine Bilirubin NEGATIVE (Negative); Urine Blood NEGATIVE (Negative); Urine Color YELLOW (Yellow); Urine Glucose 2+ (Negative); Urine Protein NEGATIVE (Negative); Urine Urobilinogen 0.2 mg/dL (0.2-1.0)
[2021-03-29 08:16] LABS: Urine Microscopic Reflex NO UMIC
[2021-03-29] MEDS: MORPHINE 2 MG/ML SYR IV PRN ×3 (08:45→22:31)
[2021-03-29] MEDS: HYDROCODONE/APAP 7.5/325 MG TAB PO PRN ×2 (10:35→16:12)
[2021-03-29] MEDS ORDERED: TAMSULOSIN 0.4 MG SR CAP PO ONE (17:17)
[2021-03-29 19:15] LABS: Potassium 4.4 mmol/L (3.5-5.1)
[2021-03-29] MEDS ORDERED: MIDODRINE HCL 5 MG TABLET PO SCH (21:00)
[2021-03-29] MEDS: ATORVASTATIN 40 MG TAB PO SCH (22:30)
[2021-03-29] MEDS ORDERED: TAMSULOSIN 0.4 MG SR CAP ONE (22:53)
--- NOTE | 2021-03-29 23:52 | CON ---
Date of Consultation: 03/29/2021 Chief Complaint: Acute kidney injury associated with hypotension, hyponatremia. The patient sustained a fall at home. History Of Present Illness: The patient is a 50-year-old man with a past medical history of hypertension, hyperlipidemia, obesity, and anxiety. He presented to the hospital after he sustained a fall at home and had trauma to the right-sided chest. He was in his usual state of health until 1 day prior to admission when he developed dizziness at home and sustained a fall. He stopped taking his blood pressure medication, although he continued to have dizziness. He denies loss of consciousness. Denies chest pain, palpitation, nausea, vomiting, or diarrhea. He denies lower urinary tract symptoms and denies hematuria or kidney stones. On presentation to the emergency room, he was complaining of right-sided chest area pain and tenderness. The patient denied nausea, vomiting, melena, or hematemesis. ER workup showed creatinine of 3.13, sodium 130, magnesium 2.6, glucose 110. Chest x-ray did not show decompensated congestive heart failure and there was no increased vascular congestion. The patient had workup done for possible acute coronary syndrome. EKG was done and it was within normal limits. Past Medical History: Hypertension, hyperlipidemia, obstructive sleep apnea, depression, cholecystectomy, hemorrhoid surgery. Social History: Denies tobacco, alcohol, or illicit drug. Review of Systems: Constitutional: Denies fever or chills. Eyes: Denies vision changes. Ears, Nose, Mouth, and Throat: Denies sore throat or earache. Respiratory: Denies PND or orthopnea. Neurological: He was complaining of dizziness, sustained a fall. Musculoskeletal: He was complaining of right-sided ribcage pain. All other systems reviewed and all are negative. Physical Examination: General: The patient is alert, oriented, not in acute distress. Eyes: Anicteric sclerae. EOMI. Ears, Nose, Mouth, and Throat: Oral mucosa moist. No pallor. Neck: Supple. No bruits. Lungs: Clear to auscultation bilaterally. Heart: S1, S2. Abdomen: Soft, benign. Extremities: No edema. No clubbing. No cyanosis. Neurologic: Moving extremities. Cranial nerves intact. Laboratory Data: Sodium 130, potassium 4.5, BUN 53, creatinine 3.13, glucose 110, magnesium 2.6, AST 27, lipase 217. Impression And Plan: Dizziness, trauma to the right chest status post fall, hyponatremia, acute kidney injury, hypertension, hyperlipidemia. The patient was found to have bladder outlet obstruction and increased postvoid residual volume was detected. CT scan did not show hydronephrosis, although patient had bladder outlet obstruction. Acute kidney injury is complicated by bladder outlet obstruction. The patient has continued hypotension. Continue normal saline for hydration. Monitor electrolytes. 1. Hyponatremia secondary to prerenal state. Continue normal saline. Monitor electrolytes. 2. Status post fall. Check CK level to rule out rhabdomyolysis. 3. Acute kidney injury. Monitor urinalysis for any evidence of active urinary sediment. 4. Hypotension, borderline. The patient is on blood pressure medication. Recommend cardiac workup to rule out pericardial effusion. Continue normal saline for hydration. 5. Bladder outlet obstruction. Start Flomax. The patient may be a candidate for a Kuhn catheter. The patient likely has postobstructive diuresis secondary to bladder outlet obstruction. May benefit from urology consultation. BENNY/ALEX Voice ID: [id number] Report ID: [id number] MTDNieves
[2021-03-30] MEDS: HYDROCODONE/APAP 7.5/325 MG TAB PO PRN ×4 (02:23→21:16)
[2021-03-30 05:57] LABS: Basophils % 0.7 % (0-1.3); Hematocrit 26.9 % (39.6-49.0); Lymphocytes % 20.9 % (15.3-44.8); MPV 8.5 fL (7.6-11.3); RBC Red Blood Cell Count 2.86 M/uL (4.33-5.43)
--- NOTE | 2021-03-30 06:05 | P.PN ---
Subjective Date of Service: 03/30/21 Chief Complaint: Fall , GWENDOLYN , Rib pain , hyponatremia , dizziness Subjective: Improving (Blood pressure improved, midodrine started yesterday. Rib pain about the same, pain medication helps. Patient with significantly high postvoid residual yesterday. Voided 700 cc, had over 500 cc noted on PVR. Refused Kuhn catheter) Review of Systems 10-point ROS is otherwise unremarkable Physical Examination - Vital Signs Temperature: 98 F Blood Pressure: 113/61 Pulse: 95 Respirations: 19 Pulse Ox (%): 95 Assessment & Plan Physician Review Additional Text: Physical exam GEN: Alert, oriented, morbidly obese HEENT: Normal conjunctiva, sclera anicteric CV: Regular rate and rhythm, no edema Pulm: Nonlabored respiration on room air ABD: Soft, nontender, nondistended MSK: tenderness along R anterolateral ribs Integumentary: No rashes Neuro: Normal speech, normal affect Problem list Hypotension, history of hypertension Hyponatremia, acute. Resolved GWENDOLYN Obesity Nondisplaced R rib fractures status post fall Chronic anemia Unclear etiology of patient's hypotension/lightheadedness Suspect some bladder outlet obstruction as well as patient's recently started this Medifast diet (keto diet) Patient denies any dysuria, urinary changes, no urinary hesitancy or increased frequency prior to admission. No nocturia. no passage of any stones that the patient is aware of. He does report history of hemorrhoids, and over the last 2 weeks prior to admission he had more narrow caliber stool. He reports he had a colonoscopy 1 year ago without any concerning findings Despite IV fluid resuscitation, patient remained hypotensive, continued with significant urine output/polyuria Renal ultrasound on admission revealed some bladder distention PVR checked on 03/29, patient urinated 700, ER 500 recommended Kuhn catheter /bladder training, patient refused Subsequent PVR: 75. PVR this morning 215 He may be having postobstructive diuresis Nephrology following consult urology Blood pressure improving today, will discontinue midodrine to see if patient can maintain BP on his own Continue pain control for rib fractures dispo: Anticipate discharge home tomorrow Time Spent Managing Pts Care (In Minutes): 35
[2021-03-30 06:14] LABS: Albumin 3.5 g/dL (3.4-5.0); Magnesium 2.3 mg/dL (1.8-2.4); Phosphorus 3.6 mg/dL (2.5-4.9); Potassium 4.4 mmol/L (3.5-5.1)
[2021-03-30] MEDS: CITALOPRAM 10 MG TABLET PO SCH (08:24)
[2021-03-30] MEDS: MORPHINE 2 MG/ML SYR IV PRN (08:25)
[2021-03-30] MEDS: ASPIRIN EC 81 MG TAB PO SCH (08:25)
--- NOTE | 2021-03-30 08:59 | RAD REPORT ---
EXAM DESCRIPTION: Odin Single View03/30/2021 6:34 am CLINICAL HISTORY: Chest pain COMPARISON: March 28, 2021 FINDINGS: No pulmonary contusion. Lungs appear clear. The heart is normal size. No pleural effusion seen IMPRESSION: No acute abnormalities displayed
[2021-03-30] MEDS: NA CHLORIDE 0.9% 1,000 ML IV SCH ×2 (10:18→21:14)
--- NOTE | 2021-03-30 17:02 | EKG ---
Test Date: 2021-03-28 Test Time: 10:10:03 Closing Agent: JOLENE MEASUREMENT RESULTS: Intervals: Rate: 65 MS: 172 QRSD: 106 QT: 404 QTc: 420 [place]: P: 5 MS: 172 QRS: -40 T: 25 INTERPRETIVE STATEMENTS: Normal sinus rhythm Left axis deviation Pulmonary disease pattern Abnormal ECG Compared to ECG 07/19/2020 13:30:04 No significant changes Electronically Signed On 03-30-21 16:57:14 CDT by Tayo Arita
[2021-03-30] MEDS ORDERED: TAMSULOSIN 0.4 MG SR CAP PO SCH (21:00)
[2021-03-30] MEDS: ATORVASTATIN 40 MG TAB PO SCH (21:15)
--- NOTE | 2021-03-30 22:30 | PN ---
Date of Progress Note: 03/30/2021 Chief Complaint: Acute kidney injury associated with hypotension, hyponatremia. Patient sustained a fall at home. History Of Present Illness: Patient is a 50-year-old man with past medical history of hypertension, hyperlipidemia, obesity, and anxiety. He presented to the hospital after he sustained a fall at home and had trauma to the right-sided chest. Patient was started on IV fluids. For volume resuscitation, he was volume depleted and had borderline hypotension. He required midodrine for blood pressure support as well. The patient is tolerating p.o. intake and he is on IV fluids. Hyponatremia was treated with infusion of normal saline. On arrival to the hospital, creatinine level was 3.13, sodium 130, magnesium 2.6, glucose 110. Chest x-ray did not show decompensated congestive heart failure and there was no increased vascular congestion. EKG was within normal limits. Review of Systems: Patient denies fever, chills. Physical Examination: Lungs: Clear to auscultation bilaterally. Heart: S1, S2. Abdomen: Soft, benign. Extremities: No edema. Laboratory Data: yesterday sodium was 135. On admission on March 28, sodium was 130. CO2 26, BUN 24, creatinine 1.73, magnesium 2.3, phosphorus 3.6. CK level was 103 and 113, albumin 3.5, serum protein 6.5. Pending workup for proteinuria. Urine protein was 1+. Impression And Plan: 1. Acute kidney injury. Patient will continue IV normal saline. The patient has nonoliguric urine output. Patient developed acute kidney injury due to severe prerenal azotemia. There is a possible element of nonoliguric acute tubular necrosis. Patient was found to have increased postvoid residual volume and he was started on Flomax. Continue to monitor fluid balance and electrolytes. The patient will follow up with Urology and Nephrology. Workup is pending for proteinuria. The patient had urinalysis, which did not show active urinary sediment. 2. GWENDOLYN, the patient has acute kidney injury secondary to hypotension and renal hypoperfusion. EB/MODL Voice ID: [id number] Report ID: [id number] BEULAH
[2021-03-31] MEDS: HYDROCODONE/APAP 7.5/325 MG TAB PO PRN ×3 (03:09→14:27)
[2021-03-31 05:40] LABS: Hematocrit 27.5 % (39.6-49.0); MPV 8.8 fL (7.6-11.3); RBC Red Blood Cell Count 2.95 M/uL (4.33-5.43)
[2021-03-31 06:11] LABS: Albumin 3.5 g/dL (3.4-5.0); Bilirubin Total 0.3 mg/dL (0.2-1.0); Protein, Total 6.5 g/dL (6.4-8.2)
[2021-03-31 06:12] LABS: Magnesium 2.2 mg/dL (1.8-2.4); Potassium 4.2 mmol/L (3.5-5.1)
[2021-03-31] MEDS: ASPIRIN EC 81 MG TAB PO SCH (09:05)
[2021-03-31] MEDS: NA CHLORIDE 0.9% 1,000 ML IV SCH (09:05)
[2021-03-31] MEDS: CITALOPRAM 10 MG TABLET PO SCH (09:05)
--- NOTE | 2021-03-31 12:51 | P.DS ---
Admission Date: 03/28/21 Discharge Date: 03/31/21 Disposition: ROUTINE DISCHARGE Discharge Condition: FAIR Reason for Admission: Fall , GWENDOLYN , Rib pain , hyponatremia , dizziness - Problems (1) Acute renal failure Current Visit: Yes Status: Acute (2) Fall Current Visit: Yes Status: Acute (3) Hyponatremia Current Visit: Yes Status: Acute (4) Acute urinary retention Current Visit: Yes Status: Acute (5) Hypotension Current Visit: Yes Status: Acute Brief History of Present Illness: 50-year-old gentleman with a history of hypertension, hyperlipidemia, obesity and anxiety sustained a right-sided rib pain status post mechanical fall. Event preceded by a feeling of dizziness. Patient denied any loss of consciousness preceding or after the fall. His creatinine elevated to 3.13 in the ED, sodium of 130. CT abdomen and pelvis unremarkable except nondisplaced right 1st and cy sts rib fractures. Patient diagnosed with acute renal failure and hospitalized for further management. Hospital Course: Patient admitted to the medical floor, GWENDOLYN treated with IV fluid and resolved. Also had hyponatremia which improved with IV hydration. His dizziness resolved patient was ambulate without issues. He developed acute urinary retention and patient started on tamsulosin. UA suggested no UTI. He responded well and was able to void without any difficulty. His rib pain was managed with oral [place]. Patient has clinically improved. Currently asymptomatic and request to go home. Patient informed to follow with Dr. Garza as an outpatient for further evaluation for BPH and urinary retention. Vital Signs/Physical Exam: Temp Pulse Resp BP Pulse Ox 96.9 F 66 18 129/77 100 03/31/21 08:00 03/31/21 08:00 03/31/21 08:00 03/31/21 08:00 03/31/21 08:00 General: Alert, In no apparent distress, Oriented x3 HEENT: Mucous membr. moist/pink Neck: JVD not distended Respiratory: Clear to auscultation bilaterally, Normal air movement Cardiovascular: Regular rate/rhythm, Normal S1 S2 Gastrointestinal: Soft and benign, Non-distended Musculoskeletal: No tenderness Integumentary: No rashes Neurological: Normal strength at 5/5 x4 extr Lymphatics: No axilla or inguinal lymphadenopathy Laboratory Data at Discharge: WBC 4.00 K/uL (4.3-10.9) L D 03/31/21 05:14 Hgb 9.3 g/dL (13.6-17.9) L 03/31/21 05:14 Hct 27.5 % (39.6-49.0) L 03/31/21 05:14 Plt Count 172 K/uL (152-406) 03/31/21 05:14 PT 11.1 SECONDS (9.5-12.5) 03/28/21 08:20 INR 0.97 03/28/21 08:20 Sodium 136 mmol/L (136-145) 03/31/21 05:14 Potassium 4.2 mmol/L (3.5-5.1) 03/31/21 05:14 BUN 18 mg/dL (7-18) 03/31/21 05:14 Creatinine 1.58 mg/dL (0.55-1.3) H 03/31/21 05:14 Glucose 114 mg/dL (74-106) H 03/31/21 05:14 Phosphorus 3.6 mg/dL (2.5-4.9) 03/30/21 05:26 Magnesium 2.2 mg/dL (1.8-2.4) 03/31/21 05:14 Total Bilirubin 0.3 mg/dL (0.2-1.0) 03/31/21 05:14 AST 25 U/L (15-37) 03/31/21 05:14 ALT 23 U/L (12-78) 03/31/21 05:14 Alkaline Phosphatase 39 U/L (45-117) L 03/31/21 05:14 Lipase Cancelled 03/28/21 09:52 Home Medications: Aspirin Chewable [Aspirin Chewable*] 81 mg PO DAILY 10/10/19 Atorvastatin Calcium 40 mg PO DAILY 10/10/19 Carvedilol [Coreg] 1.5 tab PO BID 10/10/19 Citalopram Hydrobromide [Citalopram HBr] 40 mg PO DAILY 10/10/19 Fenofibrate 145 mg PO DAILY WITH BREAKFAST 07/19/20 Fiber Capsules 1 tab PO DAILY 07/19/20 Trazodone HCl 100 mg PO PRN 07/19/20 Hydrocodone 7.5/APAP 325 [[place] 7.5/325 mg*] 1 tab PO Q6HP PRN #20 tab 03/31/21 Iron Polysaccharide Complex [Polysaccharide Iron] 150 mg PO DAILY #30 capsule 03/31/21 Tamsulosin [Flomax*] 0.4 mg PO BEDTIME #30 cap 03/31/21 New Medications: Hydrocodone 7.5/APAP 325 [[place] 7.5/325 mg*] 1 tab PO Q6HP PRN #20 tab PRN Reason: Pain Scale 5-7 (Moderate) Tamsulosin [Flomax*] 0.4 mg PO BEDTIME #30 cap Iron Polysaccharide Complex [Polysaccharide Iron] 150 mg PO DAILY #30 capsule Diet: AHA Activity: Fall precautions Followup: Nika Lockett MD [COURTESY - CAN ADMIT] - Leonardo Segovia DO [Primary Care Provider] - Kaleb Garza [ACTIVE - CAN ADMIT] - 1-2 Weeks (Please evaluate for Urinary retention.) Time spent managing pt's care (in minutes): 36
[2021-03-31 13:25] VITALS: BP 118/66; TEMP 97.3
--- NOTE | 2021-03-31 14:07 | PN ---
Date of Progress Note: 03/31/2021 Subjective: The patient was admitted with acute kidney injury. Creatinine upon admission up to 3.1 with GFR of 21. His acute kidney injury was multifactorial secondary to prerenal and dehydration. After hydration, kidney function has been trending down. Physical Examination: Vital Signs: When I saw the patient; blood pressure 129/77, pulse of 66, afebrile. The patient had good urine output of 4100. Chest: Clear to auscultation. Heart: S1, S2. Regular. Abdomen: Morbidly obese. Could not appreciate any organomegaly. Extremities: Trace edema. Neuro: Alert, oriented x3. No focal. Laboratory Data: Sodium 136, potassium 4.2, bicarb 24, BUN 18, creatinine 1.5, GFR of 46, calcium 8.5. Serum protein electrophoresis is still pending. WBC 4, H and H 9.3/27.5. Urinalysis positive for proteinuria. Current Medications: The patient on include aspirin, atorvastatin, Flomax, Celexa, hydrocodone. Assessment And Plan: 1. Acute kidney injury. Obstructive uropathy has been ruled out with a CT scan. Mostly, it is secondary to dehydration. Supported with hyponatremia and low blood pressure. The patient's blood pressure normalized currently. I am going to go ahead and discontinue IV fluid. The patient cleared from the Renal standpoint for discharge planning to follow up in the office in 2-3 weeks. 2. Hypertension with the presence of acute kidney injury and low blood pressure. Hold all blood pressure medications. 3. Hyponatremia secondary to depletional, recovered, resolved. Discontinue IV fluid. 4. Fall, dizziness secondary to dehydration. We will follow up with the primary. Time spent examining the patient [id number] placing order discussing with the patient reviewing data discussing the case with all of our subspecialty including hospitalist 45 minutes MICHELLE Voice ID: [id number] Report ID: [id number] BEULAH
[2021-04-01 23:14] LABS: Albumin, (SPE) 4.1 g/dL (3.8-4.8); Alpha-1-Globulins 0.3 g/dL (0.2-0.3); Alpha-2-Globulins 0.6 g/dL (0.5-0.9); Gamma Globulins 0.9 g/dL (0.8-1.7); INTERPRETATION REPORT
[2021-04-05 06:34] LABS: Beta Globulin 24 HR Urine 0 %; Gamma Globulin, 24hr Urine 0 %; Interpretation: REPORT; Protein/Crea Ratio in g 143 mg/g creat (<=114); Protein/Crea Ratio in mg 0.143 (<=0.114); Urine Alpha-2-Globulins, 24 Hr 0 %; Urine PEP Abn Protein Band1 REPORT; Urine Total Volume 24 Hours 5250 mL
== END 2021-03-31 14:20 | disposition home or self-care (01) | DRG 683 ==
LOC: ER 07:49 → ERHOLD 11:16 → 2ND 17:22
PROVIDERS: ADMIT Hospitalist; ATTEND Hospitalist
DX: N17.9 Acute kidney failure, unspecified (principal); S22.41XA Multiple fractures of ribs, right side, initial encounter for closed fracture; E87.1 Hypo-osmolality and hyponatremia; Z68.41 Body mass index [BMI] 40.0-44.9, adult; R33.9 Retention of urine, unspecified; I95.9 Hypotension, unspecified; I10 Essential (primary) hypertension; E78.5 Hyperlipidemia, unspecified; F41.9 Anxiety disorder, unspecified; E66.01 Morbid (severe) obesity due to excess calories; N32.0 Bladder-neck obstruction; R42 Dizziness and giddiness; S20.229A Contusion of unspecified back wall of thorax, initial encounter; W18.39XA Other fall on same level, initial encounter; Y92.009 Unspecified place in unspecified non-institutional (private) residence as the place of occurrence of the external cause; Z88.0 Allergy status to penicillin; Z20.822 Contact with and (suspected) exposure to COVID-19
CPT/HCPCS: 36415; 70450; 71045; 71250; 72125; 76770; 80048; 80053; 80069; 80076; 81003; 82330; 82550; 82553; 83036; 83690; 83735; 83880; 84100; 84145; 84165; 84166; 84484; 85025; 85027; 85610; 86140; 86334; 87086; 87088; 93005; 94010; 96361; 96374; 96375; 97161; 99285; J2270; J2405; J7030; J7040; U0003

== ENCOUNTER 2022-01-30 14:28 | Emergency (ER) | payer BC ==
[2022-01-30] MEDS ORDERED: LORazepam 2 MG/ML VIAL ONE (15:12)
[2022-01-30] MEDS ORDERED: NA CHLORIDE 0.9% 1,000 ML ONE ×2 (15:23→18:19)
[2022-01-30 15:29] LABS: Absolute Lymphocytes (CBC) 0.9 K/uL (0.7-4.9); Hematocrit 45.6 % (39.6-49.0); Lymphocytes % 11.1 % (15.3-44.8); MCV 92.8 fL (80-100); MPV 8.4 fL (7.6-11.3); RBC Red Blood Cell Count 4.92 M/uL (4.33-5.43)
[2022-01-30 15:39] LABS: Albumin 4.2 g/dL (3.4-5.0); Bilirubin Total 1.5 mg/dL (0.2-1.0); Potassium 3.7 mmol/L (3.5-5.1); Protein, Total 7.6 g/dL (6.4-8.2)
--- NOTE | 2022-01-30 16:24 | RAD REPORT ---
EXAM DESCRIPTION: CT - Stone Protocol - 01/30/2022 4:04 pm CLINICAL HISTORY: Abdominal pain. Flank pain COMPARISON: 2019 TECHNIQUE: Computed axial tomography of the abdomen pelvis was obtained without oral or IV contrast. Lack of IV and oral contrast limits evaluation of solid organs, appendix, bowel, and vessels. Hoyt l reformatted images were obtained and reviewed. All CT scans are performed using dose optimization technique as appropriate and may include automated exposure control or mA/KV adjustment according to patient size. FINDINGS: A renal calculus is not seen. An ureteral calculus is not noted. A bladder calculus is not present. 4.3 centimeter left renal cyst. Fatty liver Cholecystectomy The spleen, pancreas and adrenals appear grossly normal There is no evidence of diverticulitis. The appendix appears normal Small to moderate bilateral inguinal hernias contain fat. Spondylolysis L5. Small umbilical hernia IMPRESSION: Negative for a genitourinary calculus
[2022-01-30] MEDS ORDERED: MORPHINE 4 MG/ML SYR ONE (17:07)
[2022-01-30] MEDS ORDERED: ONDANSETRON 4 MG/2 ML VIAL ONE (17:07)
[2022-01-30 17:28] LABS: Urine Blood Trace-intact (Negative); Urine Glucose Negative (Negative); Urine Protein Negative (Negative); Urine Specific Gravity >=1.030 (1.005-1.030)
--- NOTE | 2022-01-30 17:54 | EDPHYS ---
Physician Documentation [facility] Name: Nahid Espinoza Age: 51 yrs Sex: Male : 1970 Arrival Date: 01/30/2022 Time: 14:29 Bed 7 Private MD: Leonardo Segovia ED Physician Rashaun Mehta HPI: 01/30 17:52 This 51 yrs old Male presents to ER via Ambulatory with complaints of Flank kb Pain. 17:52 The patient complains of pain in the left flank and right flank. The pain does not kb radiate. Onset: The symptoms/episode began/occurred this morning. Modifying factors: The symptoms are alleviated by nothing. the symptoms are aggravated by nothing. Associated signs and symptoms: Pertinent positives: nausea, vomiting, Pertinent negatives: diarrhea, dizziness, dysuria, fever, urinary frequency, headache, hematuria, pain radiating to the lower extremities. Severity of pain: At its worst the pain was moderate in the emergency department the pain is unchanged. The patient has not experienced similar symptoms in the past. The patient has not recently seen a physician. Historical: - Allergies: 14:45 PENICILLINS; rash; bh1 - PMHx: 14:45 High Cholesterol; Hypertension; Anxiety; bh1 - PSHx: 14:45 Hemorrhoidectomy; Cholecystectomy; bh1 - Immunization history:: Adult Immunizations up to date, Client reports receiving the 2nd dose of the Covid vaccine. - Social history:: Smoking status: Patient denies any tobacco usage or history of. ROS: 17:44 Constitutional: Negative for fever, chills, and weight loss. kb 17:44 Abdomen/GI: Positive for nausea and vomiting. 17:44 Back: Positive for flank pain, bilaterally. 17:44 All other systems are negative. Exam: 17:51 Constitutional: This is a well developed, well nourished patient who is awake, alert, kb and in no acute distress. Head/Face: Normocephalic, atraumatic. ENT: Moist Mucous membranes Cardiovascular: Regular rate and rhythm with a normal S1 and S2. No gallops, murmurs, or rubs. No pulse deficits. Respiratory: Respirations even and unlabored. No increased work of breathing. Talking in full sentences Abdomen/GI: Soft, non-tender. No distention Skin: Warm, dry with normal turgor. Normal color. MS/ Extremity: Pulses equal, no cyanosis. Neurovascular intact. Full, normal range of motion. Neuro: Awake and alert, GCS 15, oriented to person, place, time, and situation. Moves all extremities. Normal gait. Psych: Awake, alert, with orientation to person, place and time. Behavior, mood, and affect are within normal limits. 17:51 Back: CVA tenderness, "pressure not tender". 17:53 Constitutional: The patient appears anxious. kb Vital Signs: 14:43 BP 169 / 92; Pulse 74; Resp 20; Pulse Ox 97% ; Weight 136.08 kg; Height 5 ft. 11 in. bh1 (180.34 cm); Pain 5/10; 15:52 Pulse 75; Resp 19 S; Pulse Ox 97% on R/A; jd3 17:02 BP 147 / 90; Pulse 76; Resp 16 S; Pulse Ox 99% on R/A; jd3 18:06 BP 132 / 73; Pulse 75; Resp 16 S; Pulse Ox 99% on R/A; jd3 19:21 BP 132 / 73; Resp 16; Pulse Ox 97% on R/A; kl 20:14 BP 129 / 82; Pulse 70; Resp 18; Pulse Ox 98% on R/A; Pain 0/10; kl 14:43 Body Mass Index 41.84 (136.08 kg, 180.34 cm) bh1 MDM: 14:41 Patient medically screened. kb 17:51 Data reviewed: vital signs, nurses notes. Data interpreted: Pulse oximetry: on room air kb is 99 %. Interpretation: normal. Counseling: I had a detailed discussion with the patient and/or guardian regarding: the historical points, exam findings, and any diagnostic results supporting the discharge/admit diagnosis, lab results, radiology results, the need for outpatient follow up, a family practitioner, to return to the emergency department if symptoms worsen or persist or if there are any questions or concerns that arise at home. 01/30 14:49 Order name: CBC with Diff; Complete Time: 15:36 kb 01/30 14:49 Order name: CMP; Complete Time: 15:42 kb 01/30 14:49 Order name: Lipase; Complete Time: 15:42 kb 01/30 15:43 Order name: CT Stone Protocol; Complete Time: 16:26 kb 01/30 17:29 Order name: Urine Dipstick-Ancillary; Complete Time: 17:32 EDMS 01/30 14:49 Order name: IV Saline Lock; Complete Time: 15:15 kb 01/30 14:49 Order name: Labs collected and sent; Complete Time: 15:15 kb Administered Medications: 15:14 Drug: Ativan (LORazepam) 1 mg Route: IVP; Site: left antecubital; jd3 16:10 Follow up: Response: No adverse reaction; RASS: Alert and Calm (0) jd3 15:23 Drug: NS 0.9% 1000 ml Route: IV; Rate: 1000 ml; Site: left antecubital; jd3 16:10 Follow up: Response: No adverse reaction; IV Status: Completed infusion; IV Intake: jd3 1000ml 17:10 Drug: morphine 4 mg Route: IVP; Infused Over: 4 mins; Site: left antecubital; jd3 20:14 Follow up: Response: Marked relief of symptoms kl 17:19 Drug: Zofran (Ondansetron) 4 mg Route: IVP; Site: left antecubital; jd3 18:10 Drug: NS 0.9% 1000 ml Route: IV; Rate: 1000 ml; Site: left antecubital; jd3 20:14 Follow up: IV Status: Completed infusion; IV Intake: 1000ml Disposition: 01/31 08:25 Co-signature as Attending Physician, Rashaun Mehta MD. rn Disposition Summary: 01/30/22 17:52 Discharge Ordered Location: Home kb Condition: Stable kb Diagnosis - Bilateral Flank Pain kb Followup: kb - With: Emergency Department - When: As needed - Reason: Worsening of condition Followup: kb - With: Private Physician - When: 2 - 3 days - Reason: Recheck today's complaints, Continuance of care, Re-evaluation by your physician Discharge Instructions: - Discharge Summary Sheet kb - Flank Pain, Adult, [id number] kb Forms: - Medication Reconciliation Form kb - Thank You Letter kb - Antibiotic Education kb - Prescription Opioid Use kb Prescriptions: - Diclofenac Sodium 75 mg Oral tablet,delayed release (DR/EC) - take 1 tablet by ORAL route 2 times per day As needed; 30 tablet; Refills: 0, kb Product Selection Permitted Signatures: Dispatcher [employer] EDIN Eva Matthews FNP-C FNP-Ckb Rashaun Mehta MD MD rn Scout, Terrence, RN RN jd3 Sofie Barcenas RN RN bh1 Mena Nolasco RN kl
--- NOTE | 2022-01-30 17:54 | ER ---
Nurse's Notes [facility] Name: Nahid Espinoza Age: 51 yrs Sex: Male : 1970 Arrival Date: 01/30/2022 Time: 14:29 Bed 7 Private MD: Leonardo Segovia Diagnosis: Bilateral Flank Pain Presentation: 01/30 14:43 Chief complaint: Patient states: bilateral flank pain, nausea, vomiting, chills that 1 started this morning. Coronavirus screen: Vaccine status: Patient reports receiving the 2nd dose of the covid vaccine. Ebola Screen: Patient negative for fever greater than or equal to 101.5 degrees Fahrenheit, and additional compatible Ebola Virus Disease symptoms Patient denies exposure to infectious person. Patient denies travel to an Ebola-affected area in the 21 days before illness onset. No symptoms or risks identified at this time. Initial Sepsis Screen: Does the patient meet any 2 criteria? No. Patient's initial sepsis screen is negative. Does the patient have a suspected source of infection? No. Patient's initial sepsis screen is negative. Risk Assessment: Do you want to hurt yourself or someone else? Patient reports no desire to harm self or others. Onset of symptoms was January 30, 2022. 14:43 Method Of Arrival: Ambulatory [facility] 14:43 Acuity: KATIE 3 [facility] Triage Assessment: 14:46 General: Appears anxious. Behavior is cooperative, anxious. [facility] Historical: - Allergies: 14:45 PENICILLINS; rash; [facility] - PMHx: 14:45 High Cholesterol; Hypertension; Anxiety; [facility] - PSHx: 14:45 Hemorrhoidectomy; Cholecystectomy; [facility] - Immunization history:: Adult Immunizations up to date, Client reports receiving the 2nd dose of the Covid vaccine. - Social history:: Smoking status: Patient denies any tobacco usage or history of. Screenin:15 Abuse screen: Denies threats or abuse. Nutritional screening: No deficits noted. jd3 Tuberculosis screening: No symptoms or risk factors identified. Fall Risk Ambulatory Aid- None/Bed Rest/Nurse Assist (0 pts). Gait- Normal/Bed Rest/Wheelchair (0 pts) Mental Status- Oriented to own ability (0 pts). Total Quezada Fall Scale indicates No Risk (0-24 pts). Assessment: 15:16 General: Appears in no apparent distress. comfortable, Behavior is calm, cooperative, jd3 appropriate for age. Pain: Complains of pain in low back area Quality of pain is described as sharp. Neuro: Nash Agitation-Sedation Scale (RASS): +1 Restless Level of Consciousness is awake, alert, obeys commands, Oriented to person, place, time, situation. Cardiovascular: Capillary refill < 3 seconds Patient's skin is warm and dry. Respiratory: Airway is patent Respiratory effort is even, unlabored, Respiratory pattern is regular, symmetrical, Denies cough, shortness of breath. GI: No signs and/or symptoms were reported involving the gastrointestinal system. : Reports pain in right in left flank(s), in lower back history of Kidney failure with pain similar to the current pain. EENT: No signs and/or symptoms were reported regarding the EENT system. Derm: Skin is intact, Skin is dry, Skin is normal, Skin temperature is warm. Musculoskeletal: Circulation, motion, and sensation intact. Range of motion: intact in all extremities. 15:52 Reassessment: Patient appears in no apparent distress at this time. Patient and/or jd3 family updated on plan of care and expected duration. Pain level reassessed. Patient is alert, oriented x 3, equal unlabored respirations, skin warm/dry/pink. 17:01 Reassessment: Patient appears in no apparent distress at this time. Patient and/or jd3 family updated on plan of care and expected duration. Pain level reassessed. Patient is alert, oriented x 3, equal unlabored respirations, skin warm/dry/pink. pt reporting pain upon returning form CT. provider notified and new orders received, see MAR. 18:06 Reassessment: Patient appears in no apparent distress at this time. Patient and/or jd3 family updated on plan of care and expected duration. Pain level reassessed. Patient is alert, oriented x 3, equal unlabored respirations, skin warm/dry/pink. discharge pending NS administration. Vital Signs: 14:43 BP 169 / 92; Pulse 74; Resp 20; Pulse Ox 97% ; Weight 136.08 kg; Height 5 ft. 11 in. bh1 (180.34 cm); Pain 5/10; 15:52 Pulse 75; Resp 19 S; Pulse Ox 97% on R/A; jd3 17:02 BP 147 / 90; Pulse 76; Resp 16 S; Pulse Ox 99% on R/A; jd3 18:06 BP 132 / 73; Pulse 75; Resp 16 S; Pulse Ox 99% on R/A; jd3 19:21 BP 132 / 73; Resp 16; Pulse Ox 97% on R/A; kl 20:14 BP 129 / 82; Pulse 70; Resp 18; Pulse Ox 98% on R/A; Pain 0/10; kl 14:43 Body Mass Index 41.84 (136.08 kg, 180.34 cm) [facility] ED Course: 14:29 Patient arrived in ED. as 14:29 Leonardo Segovia DO is Private Physician. as 14:41 Eva Matthews [facility]-C [facility] kb 14:41 Rashaun Mehta MD is Attending Physician. kb 14:45 Triage completed. [facility] 14:46 Arm band placed on right wrist. [facility] 14:50 Terrence Butterfield RN is Primary Nurse. jd3 15:15 Patient has correct armband on for positive identification. Bed in low position. Call jd3 light in reach. Side rails up X 1. Adult w/ patient. quality assurance monitor chassis on. Pulse ox on. 15:15 Inserted saline lock: 22 gauge in left antecubital area, using aseptic technique. Blood jd3 collected. 16:06 CT Stone Protocol In Process Unspecified. EDMS 19:20 No apparent distress. Resting quietly. iv infusing to left ac no compromise noted. kl 20:14 IV discontinued, intact, bleeding controlled, No redness/swelling at site. Pressure kl dressing applied. 20:15 No provider procedures requiring assistance completed. kl Administered Medications: 15:14 Drug: Ativan (LORazepam) 1 mg Route: IVP; Site: left antecubital; jd3 16:10 Follow up: Response: No adverse reaction; RASS: Alert and Calm (0) jd3 15:23 Drug: NS 0.9% 1000 ml Route: IV; Rate: 1000 ml; Site: left antecubital; jd3 16:10 Follow up: Response: No adverse reaction; IV Status: Completed infusion; IV Intake: jd3 1000ml 17:10 Drug: morphine 4 mg Route: IVP; Infused Over: 4 mins; Site: left antecubital; jd3 20:14 Follow up: Response: Marked relief of symptoms kl 17:19 Drug: Zofran (Ondansetron) 4 mg Route: IVP; Site: left antecubital; jd3 18:10 Drug: NS 0.9% 1000 ml Route: IV; Rate: 1000 ml; Site: left antecubital; jd3 20:14 Follow up: IV Status: Completed infusion; IV Intake: 1000ml kl Medication: 15:15 VIS not applicable for this client. jd3 Intake: 16:10 IV: 1000ml; Total: 1000ml. jd3 20:14 IV: 1000ml; Total: 2000ml. kl Outcome: 17:52 Discharge ordered by . kb 20:15 Discharged to home ambulatory. kl 20:15 Condition: improved 20:15 Discharge instructions given to patient, Instructed on discharge instructions, follow up and referral plans. medication usage, Demonstrated understanding of instructions, follow-up care, medications, Prescriptions given X 1. 20:15 Patient left the ED. Signatures: Dispatcher [employer] EDMS Eva Matthews, DYLON-C DYLON-Mena Friedman RN Angeles Cortés Jonathon RN RN jSofie Valentine RN RN bh1
[2022-01-30 20:40] VITALS: BP 129/82; O2SAT 98
== END 2022-01-30 20:15 | disposition home or self-care (01) ==
LOC: ER 14:28
DX: R10.9 Unspecified abdominal pain (principal); R11.2 Nausea with vomiting, unspecified; I10 Essential (primary) hypertension; Z88.0 Allergy status to penicillin
CPT/HCPCS: 85025; 36415; 81003; 83690; 80053; 76377; 74176; J7030 ×2; J2405; 96361; 96374; 96375; 99284